=== PATIENT | male | born 1960 | race Two or more races ===

== ENCOUNTER 2018-12-11 14:59 | Emergency (ER) | payer SELFPAY ==
[~2018-12-11] VITALS: Ht 170.2 cm; Wt 74.8 kg
--- NOTE | 2018-12-11 15:29 | PHYS DOC ---
Past Medical History Attending Signature I have participated in the care of this patient and I have reviewed and agree with all pertinent clinical information above including history, exam, and recommendations. (CLAUDIO PEACE MD) Adult General Chief Complaint Chief Complaint: TESTICULAR PAIN OR INJURY HPI HPI Patient is a 58 year old male patient with no significant medical history who presents to the ED today complaining of testicular swelling for 2 weeks. Patient denies any difficulty urinating. Denies any injury. Denies any fever, denies any concerns for STDs. Denies any unusual penile discharge. (JERARDO BELL APRN) Review of Systems Review of Systems Constitutional: Denies fever or chills [] Eyes: Denies change in visual acuity, redness, or eye pain [] HENT: Denies nasal congestion or sore throat [] Respiratory: Denies cough or shortness of breath [] Cardiovascular: No additional information not addressed in HPI [] GI: Denies abdominal pain, nausea, vomiting, bloody stools or diarrhea [] : Reports testicular swelling. Denies dysuria or hematuria [] Musculoskeletal: Denies back pain or joint pain [] Integument: Denies rash or skin lesions [] Neurologic: Denies headache, focal weakness or sensory changes [] All other systems were reviewed and found to be within normal limits, except as documented in this note. (JERARDO BELL APRN) Current Medications Current Medications Current Medications Medications (Trade) Dose Ordered Sig/Cinthya Start Time Stop Time Status Last Admin Dose Admin Ceftriaxone Sodium (Rocephin) 1 gm 1X ONCE 12/11/18 17:30 12/11/18 17:33 DC 12/11/18 17:48 1 GM Clonidine HCl (Catapres) 0.1 mg 1X ONCE 12/11/18 16:00 12/11/18 16:01 DC 12/11/18 15:42 0.1 MG Diphenhydramine HCl (Benadryl) 25 mg 1X ONCE 12/11/18 15:45 12/11/18 15:49 DC 12/11/18 16:08 25 MG Diphtheria/ Tetanus/Acell Pertussis (Boostrix) 0.5 ml ONCE ONCE 12/11/18 16:00 12/11/18 16:01 DC 12/11/18 15:43 0.5 ML Famotidine (Pepcid Vial) 20 mg 1X ONCE 12/11/18 15:45 12/11/18 15:49 DC 12/11/18 16:07 20 MG Levofloxacin/ Dextrose 100 ml @ 100 mls/hr 1X ONCE 12/11/18 17:30 12/11/18 18:29 DC 12/11/18 17:53 100 MLS/HR Methylprednisolone Sodium Succinate (SOLU-Medrol 125MG VIAL) 125 mg 1X ONCE 12/11/18 15:45 12/11/18 15:49 DC 12/11/18 16:07 125 MG (CLAUDIO PEACE MD) Allergies Allergies Allergies Coded Allergies Type Severity Reaction Last Updated Verified No Known Drug Allergies 12/11/18 No (CLAUDIO PEACE MD) Physical Exam Physical Exam Constitutional: Well developed, well nourished, no acute distress, non-toxic appearance. [] HENT: Normocephalic, atraumatic, bilateral external ears normal, oropharynx m oist, no oral exudates, nose normal. [] Eyes: PERRLA, EOMI, conjunctiva normal, no discharge. [] Neck: Normal range of motion, no tenderness, supple, no stridor. [] Cardiovascular:Heart rate regular rhythm, no murmur [] Lungs & Thorax: Bilateral breath sounds clear to auscultation [] Abdomen: Bowel sounds normal, soft, no tenderness, no masses, no pulsatile masses. [] Male exam Moderate swelling noted around the testicles, there is erythema around the testicular skin. Hard to palpate for masses due to the swelling. No discharge. Exam done with a Home Care Physical Therapist Skin: Warm, dry, no erythema, slight erythema noted around the face. Back: No tenderness, no CVA tenderness. [] Extremities: No tenderness, no cyanosis, no clubbing, ROM intact, no edema. [] Neurologic: Alert and oriented X 3, normal motor function, normal sensory function, no focal deficits noted. [] Psychologic: Affect normal, judgement normal, mood normal. [] (JERARDO BELL APRN) Current Patient Data Vital Signs Vital Signs Date Time Temp Pulse Resp B/P (MAP) Pulse Ox O2 Delivery O2 Flow Rate FiO2 12/11/18 19:05 83 18 164/89 (114) 99 Room Air 12/11/18 15:23 98.5 98.5 (CLAUDIO PEACE MD) Lab Values Laboratory Tests Test 12/11/18 16:00 White Blood Count 9.8 x10^3/uL (4.0-11.0) Red Blood Count 5.27 x10^6/uL (4.30-5.70) Hemoglobin 16.5 g/dL (13.0-17.5) Hematocrit 46.5 % (39.0-53.0) Mean Corpuscular Volume 88 fL (79-100) Mean Corpuscular Hemoglobin 31 pg (25-35) Mean Corpuscular Hemoglobin Concent 36 g/dL (31-37) Red Cell Distribution Width 13.8 % (11.5-14.5) Platelet Count 193 x10^3/uL (140-400) Neutrophils (%) (Auto) 75 % (31-73) H Lymphocytes (%) (Auto) 15 % (24-48) L Monocytes (%) (Auto) 7 % (0-9) Eosinophils (%) (Auto) 3 % (0-3) Basophils (%) (Auto) 1 % (0-3) Neutrophils # (Auto) 7.4 x10^3/uL (1.8-7.7) Lymphocytes # (Auto) 1.4 x10^3/uL (1.0-4.8) Monocytes # (Auto) 0.7 x10^3/uL (0.0-1.1) Eosinophils # (Auto) 0.3 x10^3/uL (0.0-0.7) Basophils # (Auto) 0.1 x10^3/uL (0.0-0.2) Sodium Level 138 mmol/L (136-145) Potassium Level 4.1 mmol/L (3.5-5.1) Chloride Level 102 mmol/L (98-107) Carbon Dioxide Level 28 mmol/L (21-32) Anion Gap 8 (6-14) Blood Urea Nitrogen 11 mg/dL (8-26) Creatinine 1.1 mg/dL (0.7-1.3) Estimated GFR (Cockcroft-Gault) 68.5 BUN/Creatinine Ratio 10 (6-20) Glucose Level 144 mg/dL (70-99) H Calcium Level 9.1 mg/dL (8.5-10.1) Total Bilirubin 0.8 mg/dL (0.2-1.0) Aspartate Amino Transferase (AST) 21 U/L (15-37) Alanine Aminotransferase (ALT) 24 U/L (16-63) Alkaline Phosphatase 116 U/L (46-116) Total Protein 8.4 g/dL (6.4-8.2) H Albumin 4.0 g/dL (3.4-5.0) Albumin/Globulin Ratio 0.9 (1.0-1.7) L Laboratory Tests 12/11/18 16:00 Laboratory Tests 12/11/18 16:00 (CLAUDIO PEACE MD) Lab Values Laboratory Tests Test 12/11/18 16:00 White Blood Count 9.8 x10^3/uL (4.0-11.0) Red Blood Count 5.27 x10^6/uL (4.30-5.70) Hemoglobin 16.5 g/dL (13.0-17.5) Hematocrit 46.5 % (39.0-53.0) Mean Corpuscular Volume 88 fL (79-100) Mean Corpuscular Hemoglobin 31 pg (25-35) Mean Corpuscular Hemoglobin Concent 36 g/dL (31-37) Red Cell Distribution Width 13.8 % (11.5-14.5) Platelet Count 193 x10^3/uL (140-400) Neutrophils (%) (Auto) 75 % (31-73) H Lymphocytes (%) (Auto) 15 % (24-48) L Monocytes (%) (Auto) 7 % (0-9) Eosinophils (%) (Auto) 3 % (0-3) Basophils (%) (Auto) 1 % (0-3) Neutrophils # (Auto) 7.4 x10^3/uL (1.8-7.7) Lymphocytes # (Auto) 1.4 x10^3/uL (1.0-4.8) Monocytes # (Auto) 0.7 x10^3/uL (0.0-1.1) Eosinophils # (Auto) 0.3 x10^3/uL (0.0-0.7) Basophils # (Auto) 0.1 x10^3/uL (0.0-0.2) Sodium Level 138 mmol/L (136-145) Potassium Level 4.1 mmol/L (3.5-5.1) Chloride Level 102 mmol/L (98-107) Carbon Dioxide Level 28 mmol/L (21-32) Anion Gap 8 (6-14) Blood Urea Nitrogen 11 mg/dL (8-26) Creatinine 1.1 mg/dL (0.7-1.3) Estimated GFR (Cockcroft-Gault) 68.5 BUN/Creatinine Ratio 10 (6-20) Glucose Level 144 mg/dL (70-99) H Calcium Level 9.1 mg/dL (8.5-10.1) Total Bilirubin 0.8 mg/dL (0.2-1.0) Aspartate Amino Transferase (AST) 21 U/L (15-37) Alanine Aminotransferase (ALT) 24 U/L (16-63) Alkaline Phosphatase 116 U/L (46-116) Total Protein 8.4 g/dL (6.4-8.2) H Albumin 4.0 g/dL (3.4-5.0) Albumin/Globulin Ratio 0.9 (1.0-1.7) L Laboratory Tests 12/11/18 16:00 Laboratory Tests 12/11/18 16:00 (JERARDO BELL APRN) EKG EKG [] (JERARDO BELL APRN) Radiology/Procedures Radiology/Procedures []PROCEDURE: TESTICULAR/SCROTUM Exam: Ultrasound scrotum Indication: Testicular pain Technique: Real-time grayscale and color Doppler images of the scrotum were obtained by the department coke oven patcher. Comparisons: None FINDINGS: Right testicle measures 4.2 x 3.1 x 2.9 cm. Left testicle measures 3.6 x 3.6 x 3.1 cm. Normal arterial and venous waveforms are identified within the testicles bilaterally. Normal appearance of the epididymis. There is diffuse scrotal skin thickening, edema and hyperemia. Small bilateral hydroceles are noted. IMPRESSION: 1. Normal sonographic appearance of the testicles without evidence of torsion. 2. Diffuse scrotal wall edema and hyperemia. Findings may be on the basis of cellulitis. No hypervascularity in the underlying testicles to suggest orchitis. 3. Small bilateral hydroceles which may be reactive. Electronically signed by: Daniel Lora MD (12/11/2018 4:34 PM) [facility] DICTATED and SIGNED BY: DANIEL LORA MD DATE: 12/11/18 3832 (JERARDO BELL APRN) Course & Med Decision Making Course & Med Decision Making Pertinent Labs and Imaging studies reviewed. (See chart for details) This is a 58-year-old male patient who presents to the ED today with testicular swelling that began 2 weeks ago. Physical exam noted for moderate edema on the scrotum with redness suspicious of cellulitis. Vitals on arrival to the ED temperature 98.5, heart rate 84, respiration 18 on room air, temperature was 204, patient denies any history of hypertension though he states he has not seen a doctor for 5 years. He was given clonidine, blood pressure came down to 146/80. CBC with a normal WBC, CMP with no acute findings, scrotal ultrasound was noted for edema as well as cellulitis to the scrotum skin. Patient was given Rocephin and Levaquin in the ED. Discharged on Levaquin. Pr ovided urologist for follow-up next week. Encouraged to elevate his scrotal region. (JERARDO BELL APRN) Dragon Disclaimer Dragon Disclaimer This electronic medical record was generated, in whole or in part, using a voice recognition dictation system. (JERARDO BELL APRN) Departure Departure Impression: Primary Impression: Cellulitis of scrotum Additional Impressions: Hydrocele, bilateral Elevated blood pressure reading Disposition: 01 HOME, SELF-CARE Condition: STABLE Referrals: NO PCP (PCP) SHYLA REARDON MD follow up in one week Patient Instructions: Cellulitis, [id number], Scrotal Swelling Additional Instructions: You were evaluated in the emergency room and noted to have cellulitis/skin infection to the area scrotal region. We put you on antibiotics, ensure you complete them. Try to elevate your scrotal region, follow-up with the provided urologist in the course of this week or next week. Return to the ED at any point symptoms worsen. Scripts Hydrocodone/Apap 5-325 (NORCO 5-325 TABLET) 1 Each Tablet 1 TAB PO Q6HRS, #10 TAB Prov: JERARDO BELL APRN 12/11/18 Naproxen (NAPROXEN) 500 Mg Tablet 1 TAB PO BID, #20 TAB 0 Refills Prov: JERARDO BELL APRN 12/11/18 Levofloxacin (LEVAQUIN) 500 Mg Tablet 1 TAB PO DAILY, #10 TAB Prov: JERARDO BELL APRN 12/11/18 Problem Qualifiers JERARDO BELL APRN Dec 11, 2018 15:29 CLAUDIO PEACE MD Dec 12, 2018 04:00
[2018-12-11] MEDS ORDERED: methylPREDNISolone SOD SUCC PF 125 MG/2 ML VIAL. IV ONE (15:45)
[2018-12-11] MEDS ORDERED: diphenhydrAMINE 50 MG/ML VIAL IVP ONE (15:45)
[2018-12-11] MEDS ORDERED: FAMOTIDINE 20 MG/2 ML VIAL IVP ONE (15:45)
[2018-12-11] MEDS ORDERED: cloNIDine HCL 0.1 MG TABLET PO ONE (16:00)
[2018-12-11] MEDS ORDERED: DIPHTH,PERTUSS(ACELL),TET TOX 0.5 ML DISP.SYRIN. VAX IM ONE (16:00)
[2018-12-11 16:11] LABS: BASO # 0.1 x10^3/uL (0.0-0.2); BASO % 1 % (0-3); EOS # 0.3 x10^3/uL (0.0-0.7); EOS % 3 % (0-3); HEMATOCRIT 46.5 % (39.0-53.0); HEMOGLOBIN 16.5 g/dL (13.0-17.5); LYMPH # 1.4 x10^3/uL (1.0-4.8); LYMPH % 15 % (24-48); MEAN CORPUSCULAR HEMOGLOBIN 31 pg (25-35); MEAN CORPUSCULAR HGB CONC 36 g/dL (31-37); MEAN CORPUSCULAR VOLUME 88 fL (79-100); MONO # 0.7 x10^3/uL (0.0-1.1); MONO % 7 % (0-9); NEUT # 7.4 x10^3/uL (1.8-7.7); NEUT % 75 % (31-73); PLATELET COUNT 193 x10^3/uL (140-400); RED BLOOD COUNT 5.27 x10^6/uL (4.30-5.70); RED CELL DISTRIBUTION WIDTH 13.8 % (11.5-14.5); WHITE BLOOD COUNT 9.8 x10^3/uL (4.0-11.0)
[2018-12-11 16:21] LABS: CALCIUM 9.1 mg/dL (8.5-10.1); CREATININE 1.1 mg/dL (0.7-1.3); GFR 68.5; POTASSIUM 4.1 mmol/L (3.5-5.1)
[2018-12-11 16:25] LABS: ALBUMIN/GLOBULIN RATIO 0.9 (1.0-1.7); TOTAL BILIRUBIN 0.8 mg/dL (0.2-1.0); TOTAL PROTEIN 8.4 g/dL (6.4-8.2)
--- NOTE | 2018-12-11 16:37 | RAD ---
Exam: Ultrasound scrotum Indication: Testicular pain Technique: Real-time grayscale and color Doppler images of the scrotum were obtained by the department oil furnace installer. Comparisons: None FINDINGS: Right testicle measures 4.2 x 3.1 x 2.9 cm. Left testicle measures 3.6 x 3.6 x 3.1 cm. Normal arterial and venous waveforms are identified within the testicles bilaterally. Normal appearance of the epididymis. There is diffuse scrotal skin thickening, edema and hyperemia. Small bilateral hydroceles are noted. IMPRESSION: 1. Normal sonographic appearance of the testicles without evidence of torsion. 2. Diffuse scrotal wall edema and hyperemia. Findings may be on the basis of cellulitis. No hypervascularity in the underlying testicles to suggest orchitis. 3. Small bilateral hydroceles which may be reactive. Electronically signed by: Daniel Samson MD (12/11/2018 4:34 PM) [facility]
[2018-12-11] MEDS ORDERED: cefTRIAXone IV Push 1 GM VIAL. IVP ONE (17:30)
[2018-12-11] MEDS ORDERED: LEVO500T59 PO (18:52)
[2018-12-11] MEDS ORDERED: HYDR-3164 PO (18:52)
[2018-12-11] MEDS ORDERED: NAPR-514 PO (18:52)
[2018-12-11 19:05] VITALS: BP 164/89
== END 2018-12-11 19:13 | disposition home or self-care (01) ==
LOC: ER 14:59
DX: N49.2 Inflammatory disorders of scrotum (principal); N43.3 Hydrocele, unspecified; R03.0 Elevated blood-pressure reading, without diagnosis of hypertension
CPT/HCPCS: 36415; 76870; 80053; 85025; 90471; 90715; 96365; 96375; 99285; J0696; J1200; J1956; J2930; J3490

== ENCOUNTER 2018-12-22 11:46 | Emergency (ER) | payer SELFPAY ==
[~2018-12-22] VITALS: Ht 170.2 cm; Wt 72.6 kg
[~2018-12-22 11:46] MED LIST: HYDR-3164 PO; LEVO500T59 PO; NAPR-514 PO
[2018-12-22 13:08] VITALS: BP 210/98
[2018-12-22] MEDS ORDERED: HYDROcodone/APAP 5/325MG 1 TAB TABLET PO ONE (13:30)
[2018-12-22] MEDS ORDERED: FLUCONAZOLE 100 MG TABLET. PO ONE (13:30)
--- NOTE | 2018-12-22 13:30 | PHYS DOC ---
Past Medical History Past Medical History: No Pertinent History Past Surgical History: No Surgical History Alcohol Use: None Drug Use: None Adult General Chief Complaint Chief Complaint: TESTICULAR PAIN OR INJURY [facility] HPI 58-year-old male presents to the emergency department with complaints of scrotal pain. Patient was seen here on December 11. At that time he was diagnosed with cellulitis of his scrotum and provided with antibiotic therapy. He states things were improving however finished antibiotics. He states he has more [place] and itching appreciated to his scrotum at this time. He denies any fever, no nausea or vomiting, no dysuria, no penile discharge. All other ROS negative unless documented in HPI Review of Systems Review of Systems See Above Allergies Allergies Allergies Coded Allergies Type Severity Reaction Last Updated Verified No Known Drug Allergies 12/11/18 No Physical Exam Physical Exam See Above Constitutional: Well developed, well nourished, no acute distress, non-toxic appearance. [] Cardiovascular:Heart rate regular rhythm, no murmur [] Lungs & Thorax: Bilateral breath sounds clear to auscultation [] Abdomen: Bowel sounds normal, soft, no tenderness, no masses, no pulsatile masses. [] Skin: Warm, dry, no erythema, no rash. [] : redness appreciated to scrotum, fungal infection appreciated to bilateral groin/scrotum Neurologic: Alert and oriented X 3, no focal deficits noted. [] Psychologic: Affect normal, judgement normal, mood normal. [] EKG EKG [] Radiology/Procedures Radiology/Procedures [] Course & Med Decision Making Course & Med Decision Making Pertinent Labs and Imaging studies reviewed. (See chart for details) []58-year-old male presents to the emergency department with complaints of scrotal pain. Patient was seen here on December 11. At that time he was diagnosed with cellulitis of his scrotum and provided with antibiotic therapy. He states things were improving however finished antibiotics. He states he has more [place] and itching appreciated to his scrotum at this time. He denies any fever, no nausea or vomiting, no dysuria, no penile discharge. Records reviewed from visit on 12/11 Johnathan Disclaimer Dragon Disclaimer This electronic medical record was generated, in whole or in part, using a voice recognition dictation system. Departure Departure Impression: Primary Impression: Cellulitis of scrotum Additional Impression: Fungal infection Disposition: 01 HOME, SELF-CARE Condition: STABLE Referrals: NO PCP (PCP) Patient Instructions: Cellulitis, [id number] Additional Instructions: Recommend follow up with PCP 3 - 5 days Return to the ER with worsening symptoms, intractable pain, fever, altered mental status Tylenol/Motrin as needed for pain Take antibiotics and antifungal as directed Scripts Doxycycline Hyclate (DOXYCYCLINE HYCLATE) 100 Mg Capsule 1 CAP PO BID, #14 CAP Prov: CLAUDIO PEACE MD 12/22/18 Fluconazole (DIFLUCAN) 200 Mg Tablet 1 TAB PO DAILY, #7 TAB Prov: CLAUDIO PEACE MD 12/22/18 Clotrimazole (CLOTRIMAZOLE) 15 Gm Cream..g. 1 CODY TP TID, #45 GM Prov: CLAUDIO PEACE MD 12/22/18 Problem Qualifiers CLAUDIO PEACE MD Dec 22, 2018 13:30
[2018-12-22] MEDS ORDERED: FLUC200T PO (13:35)
[2018-12-22] MEDS ORDERED: CLOT15CR4 TP (13:35)
[2018-12-22] MEDS ORDERED: DOXY100C2 PO (13:35)
== END 2018-12-22 13:46 | disposition home or self-care (01) ==
LOC: ER 11:46
DX: N49.2 Inflammatory disorders of scrotum (principal); B35.6 Tinea cruris
CPT/HCPCS: 99283

== ENCOUNTER 2018-12-27 11:35 | Emergency (ER) | payer SELFPAY ==
[~2018-12-27] VITALS: Ht 170.2 cm; Wt 72.6 kg
[~2018-12-27 11:35] MED LIST changes: +CLOT15CR4 TP; +DOXY100C2 PO; +FLUC200T PO
[2018-12-27 13:46] LABS: BASO # 0.1 x10^3/uL (0.0-0.2); BASO % 1 % (0-3); EOS # 0.7 x10^3/uL (0.0-0.7); EOS % 9 % (0-3); HEMATOCRIT 43.7 % (39.0-53.0); HEMOGLOBIN 15.3 g/dL (13.0-17.5); LYMPH # 1.5 x10^3/uL (1.0-4.8); LYMPH % 18 % (24-48); MEAN CORPUSCULAR HEMOGLOBIN 31 pg (25-35); MEAN CORPUSCULAR HGB CONC 35 g/dL (31-37); MEAN CORPUSCULAR VOLUME 89 fL (79-100); MONO # 0.6 x10^3/uL (0.0-1.1); MONO % 8 % (0-9); NEUT # 5.3 x10^3/uL (1.8-7.7); NEUT % 65 % (31-73); PLATELET COUNT 246 x10^3/uL (140-400); RED BLOOD COUNT 4.93 x10^6/uL (4.30-5.70); RED CELL DISTRIBUTION WIDTH 13.9 % (11.5-14.5); WHITE BLOOD COUNT 8.2 x10^3/uL (4.0-11.0)
[2018-12-27 14:13] LABS: CREATININE 1.2 mg/dL (0.7-1.3); POTASSIUM 4.1 mmol/L (3.5-5.1)
[2018-12-27] MEDS ORDERED: cloNIDine HCL 0.1 MG TABLET PO ONE (14:15)
[2018-12-27] MEDS ORDERED: fentaNYL PF VIAL 100 MCG/2 ML VIAL IVP ONE (14:15)
[2018-12-27 14:19] LABS: ALBUMIN 3.7 g/dL (3.4-5.0); TOTAL BILIRUBIN 0.5 mg/dL (0.2-1.0); TOTAL PROTEIN 7.5 g/dL (6.4-8.2)
[2018-12-27] MEDS ORDERED: HYDROcodone/APAP 5/325MG 1 TAB TABLET PO ONE (14:30)
[2018-12-27] MEDS ORDERED: SULF1TAB24 PO (15:44)
[2018-12-27] MEDS ORDERED: cefTRIAXone IM 1 GM VIAL IM ONE (15:45)
[2018-12-27] MEDS ORDERED: LISI10TA2 PO (15:47)
[2018-12-27 16:30] VITALS: BP 131/69
[2018-12-27] MEDS ORDERED: HYDR-3164 PO (16:43)
--- NOTE | 2018-12-27 18:25 | PHYS DOC ---
Past Medical History Past Medical History: Hypertension, Other Additional Past Medical Histor: CELLULITIS (RONNIE BRIONES APRN) Past Surgical History: No Surgical History (RONNIE BRIONES APRN) Alcohol Use: None Drug Use: None (RONNIE BRIONES APRN) Adult General Chief Complaint Chief Complaint: SKIN RASH/ABSCESS HPI HPI Patient is a 58 year old male who presents with pain and erythema to his left earlobe. The patient has been treated for cellulitis 3 times in the past month. He was recently admitted with cellulitis to his scrotum. The patient is curr ently taking doxycycline, using clobetasol cream and an antifungal cream. He does still have some erythema to his right neck, but states that his scrotal infection has cleared. He states that the erythema began in his earlobe approximately 2 days ago. The patient also has hypertension and has not followed up with primary care to be started on medication. He denies chest pain or shortness of breath. (RONNIE BRIONES APRN) Review of Systems Review of Systems Constitutional: Denies fever or chills [] Respiratory: Denies cough or shortness of breath [] Cardiovascular: No additional information not addressed in HPI [] GI: Denies abdominal pain, nausea, vomiting, bloody stools or diarrhea [] : Denies dysuria or hematuria [] Musculoskeletal: Denies back pain or joint pain [] Integument: See history of present illness Neurologic: Denies headache, focal weakness or sensory changes [] Endocrine: Denies polyuria or polydipsia [] All other systems were reviewed and found to be within normal limits, except as documented in this note. (RONNIE BRIONES APRN) Current Medications Current Medications Current Medications Medications (Trade) Dose Ordered Sig/Cinthya Start Time Stop Time Status Last Admin Dose Admin Acetaminophen/ Hydrocodone Bitart (Lortab 5/325) 2 tab 1X ONCE 12/27/18 14:30 12/27/18 14:31 DC 12/27/18 14:30 1 TAB Ceftriaxone Sodium (Rocephin Im) 1 gm 1X ONCE 12/27/18 15:45 12/27/18 15:46 DC 12/27/18 16:45 1 GM Clonidine HCl (Catapres) 0.1 mg 1X ONCE 12/27/18 14:15 12/27/18 14:16 DC 12/27/18 14:15 0.1 MG Fentanyl Citrate (Fentanyl 2ml Vial) 75 mcg 1X ONCE 12/27/18 14:15 12/27/18 14:16 DC (ALIA ENGLE MD) Allergies Allergies Allergies Coded Allergies Type Severity Reaction Last Updated Verified No Known Drug Allergies 12/11/18 No (ALIA ENGLE MD) Physical Exam Physical Exam Constitutional: Well developed, well nourished, no acute distress, non-toxic appearance. [] HENT: Normocephalic, atraumatic, erythema noted to the left earlobe, the ear canal is normal with no edema. There is no weeping or purulent discharge noted. Eyes: PERRLA, EOMI, conjunctiva normal, no discharge. [] Neck: Normal range of motion, no tenderness, supple, no stridor. [] Cardiovascular:Heart rate regular rhythm, no murmur [] Lungs & Thorax: Bilateral breath sounds clear to auscultation [][] Skin: Erythema noted to the right neck and upper chest, the patient states that it has improved since discharge Extremities: No tenderness, no cyanosis, no clubbing, ROM intact, no edema. [] Neurologic: Alert and oriented X 3, normal motor function, normal sensory function, no focal deficits noted. [] Psychologic: Affect normal, judgement normal, mood normal. [] (RONNIE BRIONES APRN) Current Patient Data Vital Signs Vital Signs Date Time Temp Pulse Resp B/P (MAP) Pulse Ox O2 Delivery O2 Flow Rate FiO2 12/27/18 16:30 79 18 131/69 (89) 97 Room Air 12/27/18 12:07 98.0 98.0 (ALIA ENGLE MD) Lab Values Laboratory Tests Test 12/27/18 13:35 12/27/18 13:50 White Blood Count 8.2 x10^3/uL (4.0-11.0) Red Blood Count 4.93 x10^6/uL (4.30-5.70) Hemoglobin 15.3 g/dL (13.0-17.5) Hematocrit 43.7 % (39.0-53.0) Mean Corpuscular Volume 89 fL (79-100) Mean Corpuscular Hemoglobin 31 pg (25-35) Mean Corpuscular Hemoglobin Concent 35 g/dL (31-37) Red Cell Distribution Width 13.9 % (11.5-14.5) Platelet Count 246 x10^3/uL (140-400) Neutrophils (%) (Auto) 65 % (31-73) Lymphocytes (%) (Auto) 18 % (24-48) L Monocytes (%) (Auto) 8 % (0-9) Eosinophils (%) (Auto) 9 % (0-3) H Basophils (%) (Auto) 1 % (0-3) Neutrophils # (Auto) 5.3 x10^3/uL (1.8-7.7) Lymphocytes # (Auto) 1.5 x10^3/uL (1.0-4.8) Monocytes # (Auto) 0.6 x10^3/uL (0.0-1.1) Eosinophils # (Auto) 0.7 x10^3/uL (0.0-0.7) Basophils # (Auto) 0.1 x10^3/uL (0.0-0.2) Sodium Level 140 mmol/L (136-145) Potassium Level 4.1 mmol/L (3.5-5.1) Chloride Level 106 mmol/L (98-107) Carbon Dioxide Level 28 mmol/L (21-32) Anion Gap 6 (6-14) Blood Urea Nitrogen 16 mg/dL (8-26) Creatinine 1.2 mg/dL (0.7-1.3) Estimated GFR (Cockcroft-Gault) 62.0 BUN/Creatinine Ratio 13 (6-20) Glucose Level 140 mg/dL (70-99) H Lactic Acid Level 1.5 mmol/L (0.4-2.0) Calcium Level 9.0 mg/dL (8.5-10.1) Total Bilirubin 0.5 mg/dL (0.2-1.0) Aspartate Amino Transferase (AST) 22 U/L (15-37) Alanine Aminotransferase (ALT) 34 U/L (16-63) Alkaline Phosphatase 111 U/L (46-116) Total Protein 7.5 g/dL (6.4-8.2) Albumin 3.7 g/dL (3.4-5.0) Albumin/Globulin Ratio 1.0 (1.0-1.7) Laboratory Tests 12/27/18 13:35 Laboratory Tests 12/27/18 13:50 (ALIA ENGLE MD) EKG EKG [] (RONNIE BRIONES APRN) Radiology/Procedures Radiology/Procedures [] (RONNIE BRIONES APRN) Course & Med Decision Making Course & Med Decision Making Pertinent Labs and Imaging studies reviewed. (See chart for details) []The patient's lab work does not show an acute bacterial infection, lactic acid is negative. White count is normal. The patient is being discharged on Bactrim DS which I would like him to continue along with his doxycycline. He is to follow-up with primary care for recheck in 2 days or return to the emergency department if worsening. The patient is also been prescribed lisinopril to get his blood pressure and control. He is to follow-up with primary care for evaluation and management of his hypertension as well. (RONNIE BRIONES APRN) Course & Med Decision Making Staff Physician Addendum: I was working in the ER during the course of this patient's visit. I was available for consultation as needed, but I was not directly involved in the care of this patient. (ALIA ENGLE MD) Dragon Disclaimer Dragon Disclaimer This electronic medical record was generated, in whole or in part, using a voice recognition dictation system. (RONNIE BRIONES APRN) Departure Departure Impression: Primary Impression: Hypertension Additional Impression: Cellulitis of left earlobe Disposition: HOME, SELF-CARE Condition: STABLE Patient Instructions: Cellulitis, Hypertension Additional Instructions: Take the medication as directed. Follow-up with your primary care provider in 2 days for recheck or return to the emergency department if worsening. Scripts Hydrocodone/Apap 5-325 (NORCO 5-325 TABLET) 1 Each Tablet 1 TAB PO PRN Q6HRS PRN for PAIN, #20 TAB 0 Refills Prov: RONNIE BRIONES APRN 12/27/18 Lisinopril (LISINOPRIL) 10 Mg Tablet 1 TAB PO DAILY for hypertension, #30 TAB 5 Refills Prov: RONNIE BRIONES APRN 12/27/18 Sulfamethoxazole/Trimethoprim (BACTRIM DS TABLET) 1 Each Tablet 1 TAB PO BID for cellulitis for 10 Days, #20 TAB 0 Refills Prov: RONNIE BRIONES APRN 12/27/18 Problem Qualifiers RONNIE BRIONES APRN Dec 27, 2018 18:24 ALIA ENGLE MD Dec 28, 2018 09:13
== END 2018-12-27 16:50 | disposition home or self-care (01) ==
LOC: ER 11:35
DX: H60.12 Cellulitis of left external ear (principal); I10 Essential (primary) hypertension
CPT/HCPCS: 36415; 80053; 83605; 85025; 96372; 99284; J0696

== ENCOUNTER 2020-03-31 14:45 | Inpatient (IN) | payer SELFPAY ==
[~2020-03-31] VITALS: Ht 172.7 cm; Wt 83.4 kg
[~2020-03-31 14:45] MED LIST changes: +CLOT15CR23 TP; -CLOT15CR4 TP; +LISI10TA16 PO; +SULF1TAB24 PO
[2020-03-31 15:26] LABS: BASO % 0 % (0-3); EOS % 0 % (0-3); HEMATOCRIT 38.5 % (39.0-53.0); HEMOGLOBIN 13.4 g/dL (13.0-17.5); LYMPH # 0.7 x10^3/uL (1.0-4.8); LYMPH % 7 % (24-48); MEAN CORPUSCULAR HEMOGLOBIN 30 pg (25-35); MEAN CORPUSCULAR HGB CONC 35 g/dL (31-37); MEAN CORPUSCULAR VOLUME 86 fL (79-100); MONO # 1.1 x10^3/uL (0.0-1.1); MONO % 12 % (0-9); NEUT # 7.1 x10^3/uL (1.8-7.7); NEUT % 80 % (31-73); PLATELET COUNT 337 x10^3/uL (140-400); RED BLOOD COUNT 4.49 x10^6/uL (4.30-5.70); RED CELL DISTRIBUTION WIDTH 13.5 % (11.5-14.5); WHITE BLOOD COUNT 8.9 x10^3/uL (4.0-11.0)
[2020-03-31 15:36] LABS: PROTHROMBIN TIME PATIENT 15.3 SEC (11.7-14.0)
[2020-03-31 15:46] LABS: CALCIUM 7.6 mg/dL (8.5-10.1); CREATININE 1.2 mg/dL (0.7-1.3); GFR 61.6; POTASSIUM 3.8 mmol/L (3.5-5.1)
[2020-03-31 15:52] LABS: ALBUMIN 2.1 g/dL (3.4-5.0); ALBUMIN/GLOBULIN RATIO 0.4 (1.0-1.7); MAGNESIUM 2.7 mg/dL (1.8-2.4); TOTAL BILIRUBIN 0.9 mg/dL (0.2-1.0); TOTAL PROTEIN 7.1 g/dL (6.4-8.2)
[2020-03-31 16:02] LABS: CREATINE KINASE 56 U/L (39-308)
--- NOTE | 2020-03-31 16:32 | RAD ---
INDICATION: Reason: chest pain,short of air. / Spl. Instructions: / History: COMPARISON: None. FINDINGS: Single view of chest obtained. Hypoexpanded examination. Mild interstitial opacities bilaterally. No gross osseous destructive lesio n IMPRESSION: * Mild interstitial opacities which could be from mild interstitial infiltrate or mild edema. Electronically signed by: Lele Awad MD (03/31/2020 4:29 PM) [id number]
[2020-03-31 17:04] LABS: % ATYL 2 % (0-0); % BANDS 3 % (0-9); % LYMPHS 7 % (24-48); % METAS 2 % (0-0); % MONOS 10 % (0-10); % MYELOS 1 % (0-0); % SEGS 75 % (35-66); NUCLEATED RBC 3; PLT ESTIMATE ADEQUATE (ADEQUATE); POLYCHROMASIA SLIGHT
[2020-03-31 17:16] LABS: BILIRUBIN,URINE NEGATIVE (NEG); CLARITY,URINE CLEAR; COLOR,URINE YELLOW; NITRITE,URINE NEGATIVE (NEG); PROTEIN,URINE 100 mg/dL (NEG-TRACE)
[2020-03-31 17:20] LABS: AMPHETAMINE/METHAMPHETAMINE NEG (NEG); BARBITURATES NEG (NEG); BENZODIAZEPINES NEG (NEG); CANNABINOIDS NEG (NEG); COCAINE NEG (NEG); METHADONE NEG (NEG); OPIATES NEG (NEG); PHENCYCLIDINE NEG (NEG)
[2020-03-31 17:25] LABS: AMORPHOUS SEDIMENT,UR PRESENT /HPF; BACTERIA,URINE 0 /HPF (0-FEW); RBC,URINE OCC /HPF (0-2); WBC,URINE OCC /HPF (0-4)
[2020-03-31] MEDS: STERILE WATER for RESP 1,000 ML BAG. INH PRN (17:45)
[2020-03-31] MEDS ORDERED: AZITHRMYCN 500MG IVPB FOR OMNI 250 ML IV ONE (18:30)
[2020-03-31] MEDS ORDERED: DEXAMETHASONE SOD PHOS 20 MG/5 ML VIAL. IV ONE (18:30)
[2020-03-31] MEDS ORDERED: cefTRIAXone IV Push 1 GM VIAL. IVP ONE (18:30)
--- NOTE | 2020-03-31 19:09 | PDOC1 ---
History and Physical Date of Admission Date of Admission DATE: 03/31/20 TIME: 19:00 Identification/Chief Complaint Chief Complaint Shortness of breath Source Source: Chart review, Patient History of Present Illness History of Present Illness Mr Talbot is a 60 year old male with history of hypertension presented via EMS for shortness of breath. EMS reports patient was picked up at his friend's house after his friend, Brooks, called 911. Was found with O2 saturations 75% on room air. He was put on 5 L of oxygen with improvement to 85%, but continued to desaturate and was placed on facemask O2. Throughout his desaturations he was confused and agitated. With O2 saturations 85% he stood up stating he had to go home and get his money, removed his IVs as well as monitors and started walking to the hallway. He became very short of air. Nursing staff encouraged patient to go back to his room because currently he is very short of breath. He returned to his room. O2 saturations 70% on 12L NCO2, transitioned to vapotherm. He became progressively more alert over the next 30 minutes and was able to give more history and ask for his friend Brooks to be contacted to make tea to bring to the hospital and apologized for his behavior. He reports shortness of breath for roughly 2 days with chills and subjective fevers for 2 days. Denies any chest pain. No recent sick contacts. Loss of [place]. No N/V/D Chest radiograph with interstitial opacities bilaterally WBC 8.9, Hb 13.4, platelets 337, Na 131, K 3.8, BUN 24, Cr 1.2, Glucose 346, Ca 7.6, Lactic acid 2.4, Albumin 2.1, Troponin 0, BNP 254, INR 1.2, TSH 0.967, Procalcitonin 0.42 EKG with sinus tachycardia and leftward axis. No TWI or ST segment changes. No prior EKG available to review. Covid test was ordered. Given Decadron, Rocephin and azithromycin. Admitted to ICU for Vapotherm O2 administration. Past Medical History Cardiovascular: HTN Past Surgical History Past Surgical History: No pertinent history Family History Family History: Hypertension Social History Smoke: No ALCOHOL: none Drugs: None Current Medications Current Medications Current Medications Sterile Water (WATER for RESP) 1,000 ml CONT PRN INH VIA VAPOTHERM DEVICE Last administered on 03/31/20at 17:45; Start 03/31/20 at 17:45 Dexamethasone Sodium Phosphate (Decadron) 10 mg 1X ONCE IV Last administered on 03/31/20at 18:56; Start 03/31/20 at 18:30; Stop 03/31/20 at 18:31; Status DC Azithromycin 250 ml @ 250 mls/hr 1X ONCE IV ; Start 03/31/20 at 18:30; Stop 03/31/20 at 19:29 Ceftriaxone Sodium (Rocephin) 1 gm 1X ONCE IVP Last administered on 03/31/20at 18:59; Start 03/31/20 at 18:30; Stop 03/31/20 at 18:31; Status DC Active Scripts Active Wood 5-325 Tablet (Acetaminophen/Hydrocodone Bitart) 1 Each Tablet 1 Tab PO PRN Q6HRS PRN Lisinopril 10 Mg Tablet 1 Tab PO DAILY Bactrim Ds Tablet (Sulfamethoxazole/Trimethoprim) 1 Each Tablet 1 Tab PO BID 10 Days Doxycycline Hyclate 100 Mg Capsule 1 Cap PO BID Diflucan (Fluconazole) 200 Mg Tablet 1 Tab PO DAILY Clotrimazole 15 Gm Cream..g. 1 [place] TP TID Wood 5-325 Tablet (Acetaminophen/Hydrocodone Bitart) 1 Each Tablet 1 Tab PO Q6HRS Naproxen 500 Mg Tablet 1 Tab PO BID Levaquin (Levofloxacin) 500 Mg Tablet 1 Tab PO DAILY Allergies Allergies: Coded Allergies: No Known Drug Allergies (Unverified , 12/11/18) ROS General: YES: Chills, Fatigue, Malaise, Appetite; No: Night Sweats, Other PSYCHOLOGICAL ROS: YES: Disorientation; No: Anxiety, Behavioral Disorder, Concentration difficultie, Decreased libido, Depression, Hallucinations, Hostility, Irritablity, Memory difficulties, Mood Swings, Obsessive thoughts, Physical abuse, Sexual abuse, Sleep disturbances, Suicidal ideation, Other Eyes: No Blurry vision, No Decreased vision, No Double vision, No Dry eyes, No Excessive tearing, No Eye Pain, No Itchy Eyes, No Loss of vision, No Photophob ia, No Scotomata, No Uses contacts, No Uses glasses, No Other HEENT: No: Heacaches, Visual Changes, Hearing change, Nasal congestion, Nasal discharge, Oral lesions, Sinus pain, Sore Throat, Epistaxis, Sneezing, Snoring, Tinnitus, Vertigo, Vocal changes, Other ALLERGY AND IMMUNOLOGY: No: Hives, Insect Bite Sensitivity, Itchy/Watery Eyes, Nasal Congestion, Post Nasal Drip, Seasonal Allergies, Other Hematological and Lymphatic: No: Bleeding Problems, Blood Clots, Blood Transfusions, Brusing, Night Sweats, Pallor, Swollen Lymph Nodes, Other ENDOCRINE: No: Breast Changes, Galactorrhea, Hair Pattern Changes, Hot Flashes, Malaise/lethargy, Mood Swings, Palpitations, Polydipsia/polyuria, Skin Changes, Temperature Intolerance, Unexpected Weight Changes, Other Breast: No New/Changing Breast Lumps, No Nipple changes, No Nipple discharge, No Other Respiratory: YES: Cough, Shortness of breath, SOB with excertion; No: Hemoptysis, Orthopnea, Pleuritic Pain, Sputum Changes, Stridor, Tachypnea, Wheezing, Other Cardiovascular: No Chest Pain, No Palpitations, No Orthopnea, No Paroxysmal Noc. Dyspnea, No Edema, No Lt Headedness, No Other Gastrointestinal: No Nausea, No Vomiting, No Abdominal Pain, No Diarrhea, No Constipation, No Melena, No Hematochezia, No Other Genitourinary: No Dysuria, No Frequency, No Incontinence, No Hematuria, No Retention, No Discharge, No Urgency, No Pain, No Flank Pain, No Other, No , No , No , No , No , No , No Musculoskeletal: No Gait Disturbance, No Joint Pain, No Joint Stiffness, No Joint Swelling, No Muscle Pain, No Muscular Weakness, No Pain In:, No Swelling In:, No Other Neurological: No Behavorial Changes, No Bowel/Bladder ControlChng, No Confusion, No Dizziness, No Gait Disturbance, No Headaches, No Impaired Coord/balance, No Memory Loss, No Numbness/Tingling, No Seizures, No Speech Problems, No Tremors, No Visual Changes, No Weakness, No Other Skin: No Dry Skin, No Eczema, No Hair Changes, No Lumps, No Mole Changes, No Mottling, No Nail Changes, No Pruritus, No Rash, No Skin Lesion Changes, No Other, No Acne Physical Exam General: Alert, Cooperative, severe distress HEENT: Atraumatic, PERRLA, EOMI, Mucous membr. moist/pink Lungs: Other (Bilateral scattered rhonchi) Heart: S1S2, RRR, no thrills, no rubs, no gallops, no murmurs Abdomen: Normal bowel sounds, Soft, No tenderness, No hepatosplenomegaly, No masses Rectal Exam: not examined Extremities: No clubbing, No cyanosis, No edema, Normal pulses, No tenderness/swelling Skin: No rashes, No breakdown, No significant lesion Neuro: Normal gait, Normal speech, Strength at 5/5 X4 ext, Normal tone, Sensation intact, Cranial nerves 3-12 NL, Reflexes 2+ Psych/Mental Status: Mental status NL, Mood NL Vitals Vitals Vital Signs Date Time Temp Pulse Resp B/P (MAP) Pulse Ox O2 Delivery O2 Flow Rate FiO2 03/31/20 17:45 96 vapotherm 30.0 03/31/20 17:43 104 143/72 (95) 03/31/20 14:57 98.4 24 98.4 Labs Labs Laboratory Tests Test 03/31/20 15:07 03/31/20 17:03 03/31/20 18:28 White Blood Count 8.9 x10^3/uL (4.0-11.0) Red Blood Count 4.49 x10^6/uL (4.30-5.70) Hemoglobin 13.4 g/dL (13.0-17.5) Hematocrit 38.5 % (39.0-53.0) Mean Corpuscular Volume 86 fL (79-100) Mean Corpuscular Hemoglobin 30 pg (25-35) Mean Corpuscular Hemoglobin Concent 35 g/dL (31-37) Red Cell Distribution Width 13.5 % (11.5-14.5) Platelet Count 337 x10^3/uL (140-400) Neutrophils (%) (Auto) 80 % (31-73) Lymphocytes (%) (Auto) 7 % (24-48) Monocytes (%) (Auto) 12 % (0-9) Eosinophils (%) (Auto) 0 % (0-3) Basophils (%) (Auto) 0 % (0-3) Neutrophils # (Auto) 7.1 x10^3/uL (1.8-7.7) Lymphocytes # (Auto) 0.7 x10^3/uL (1.0-4.8) Monocytes # (Auto) 1.1 x10^3/uL (0.0-1.1) Eosinophils # (Auto) 0.0 x10^3/uL (0.0-0.7) Basophils # (Auto) 0.0 x10^3/uL (0.0-0.2) Segmented Neutrophils % 75 % (35-66) Band Neutrophils % 3 % (0-9) Lymphocytes % 7 % (24-48) Atypical Lymphocytes % (Manual) 2 % (0-0) Monocytes % 10 % (0-10) Metamyelocytes % 2 % (0-0) Myelocytes % 1 % (0-0) Nucleated Red Blood Cells 3 Platelet Estimate Adequate (ADEQUATE) Giant Platelets Occ Polychromasia Slight Prothrombin Time 15.3 SEC (11.7-14.0) Prothromb Time International Ratio 1.2 (0.8-1.1) Activated Partial Thromboplast Time 32 SEC (24-38) Sodium Level 131 mmol/L (136-145) Potassium Level 3.8 mmol/L (3.5-5.1) Chloride Level 91 mmol/L (98-107) Carbon Dioxide Level 28 mmol/L (21-32) Anion Gap 12 (6-14) Blood Urea Nitrogen 24 mg/dL (8-26) Creatinine 1.2 mg/dL (0.7-1.3) Estimated GFR (Cockcroft-Gault) 61.6 BUN/Creatinine Ratio 20 (6-20) Glucose Level 346 mg/dL (70-99) Lactic Acid Level 2.4 mmol/L (0.4-2.0) 1.5 mmol/L (0.4-2.0) Calcium Level 7.6 mg/dL (8.5-10.1) Magnesium Level 2.7 mg/dL (1.8-2.4) Total Bilirubin 0.9 mg/dL (0.2-1.0) Aspartate Amino Transf (AST/SGOT) 34 U/L (15-37) Alanine Aminotransferase (ALT/SGPT) 33 U/L (16-63) Alkaline Phosphatase 108 U/L (46-116) Creatine Kinase 56 U/L (39-308) Creatine Kinase MB (Mass) < 0.5 ng/mL (0.0-3.6) Creatine Kinase MB Relative Index 0.9 % (0-4) Troponin I Quantitative < 0.017 ng/mL (0.000-0.055) < 0.017 ng/mL (0.000-0.055) ZP-Ide-C-Type Natriuretic Peptide 294 pg/mL (0-124) Total Protein 7.1 g/dL (6.4-8.2) Albumin 2.1 g/dL (3.4-5.0) Albumin/Globulin Ratio 0.4 (1.0-1.7) Lipase 110 U/L (73-393) Procalcitonin 0.42 ng/mL (0.00-0.10) Thyroid Stimulating Hormone (TSH) 0.967 uIU/mL (0.358-3.74) Urine Collection Type Unknown Urine Color Yellow Urine Clarity Clear Urine pH 5.0 (<5.0-8.0) Urine Specific [place] >=1.030 (1.000-1.030) Urine Protein 100 mg/dL (NEG-TRACE) Urine Glucose (UA) >=1000 mg/dL (NEG) Urine Ketones (Stick) 40 mg/dL (NEG) Urine Blood Negative (NEG) Urine Nitrite Negative (NEG) Urine Bilirubin Negative (NEG) Urine Urobilinogen Dipstick 1.0 mg/dL (0.2 mg/dL) Urine Leukocyte Esterase Negative (NEG) Urine RBC Occ /HPF (0-2) Urine WBC Occ /HPF (0-4) Urine Squamous Epithelial Cells Few /LPF Urine Amorphous Sediment Present /HPF Urine Bacteria 0 /HPF (0-FEW) Urine Mucus Slight /LPF Urine Opiates Screen Neg (NEG) Urine Methadone Screen Neg (NEG) Urine Barbiturates Neg (NEG) Urine Phencyclidine Screen Neg (NEG) Urine Amphetamine/Methamphetamine Neg (NEG) Urine Benzodiazepines Screen Neg (NEG) Urine Cocaine Screen Neg (NEG) Urine Cannabinoids Screen Neg (NEG) Urine Ethyl Alcohol Neg (NEG) Laboratory Tests Test 03/31/20 15:07 03/31/20 17:03 03/31/20 18:28 White Blood Count 8.9 x10^3/uL (4.0-11.0) Red Blood Count 4.49 x10^6/uL (4.30-5.70) Hemoglobin 13.4 g/dL (13.0-17.5) Hematocrit 38.5 % (39.0-53.0) Mean Corpuscular Volume 86 fL (79-100) Mean Corpuscular Hemoglobin 30 pg (25-35) Mean Corpuscular Hemoglobin Concent 35 g/dL (31-37) Red Cell Distribution Width 13.5 % (11.5-14.5) Platelet Count 337 x10^3/uL (140-400) Neutrophils (%) (Auto) 80 % (31-73) Lymphocytes (%) (Auto) 7 % (24-48) Monocytes (%) (Auto) 12 % (0-9) Eosinophils (%) (Auto) 0 % (0-3) Basophils (%) (Auto) 0 % (0-3) Neutrophils # (Auto) 7.1 x10^3/uL (1.8-7.7) Lymphocytes # (Auto) 0.7 x10^3/uL (1.0-4.8) Monocytes # (Auto) 1.1 x10^3/uL (0.0-1.1) Eosinophils # (Auto) 0.0 x10^3/uL (0.0-0.7) Basophils # (Auto) 0.0 x10^3/uL (0.0-0.2) Segmented Neutrophils % 75 % (35-66) Band Neutrophils % 3 % (0-9) Lymphocytes % 7 % (24-48) Atypical Lymphocytes % (Manual) 2 % (0-0) Monocytes % 10 % (0-10) Metamyelocytes % 2 % (0-0) Myelocytes % 1 % (0-0) Nucleated Red Blood Cells 3 Platelet Estimate Adequate (ADEQUATE) Giant Platelets Occ Polychromasia Slight Prothrombin Time 15.3 SEC (11.7-14.0) Prothromb Time International Ratio 1.2 (0.8-1.1) Activated Partial Thromboplast Time 32 SEC (24-38) Sodium Level 131 mmol/L (136-145) Potassium Level 3.8 mmol/L (3.5-5.1) Chloride Level 91 mmol/L (98-107) Carbon Dioxide Level 28 mmol/L (21-32) Anion Gap 12 (6-14) Blood Urea Nitrogen 24 mg/dL (8-26) Creatinine 1.2 mg/dL (0.7-1.3) Estimated GFR (Cockcroft-Gault) 61.6 BUN/Creatinine Ratio 20 (6-20) Glucose Level 346 mg/dL (70-99) Lactic Acid Level 2.4 mmol/L (0.4-2.0) 1.5 mmol/L (0.4-2.0) Calcium Level 7.6 mg/dL (8.5-10.1) Magnesium Level 2.7 mg/dL (1.8-2.4) Total Bilirubin 0.9 mg/dL (0.2-1.0) Aspartate Amino Transf (AST/SGOT) 34 U/L (15-37) Alanine Aminotransferase (ALT/SGPT) 33 U/L (16-63) Alkaline Phosphatase 108 U/L (46-116) Creatine Kinase 56 U/L (39-308) Creatine Kinase MB (Mass) < 0.5 ng/mL (0.0-3.6) Creatine Kinase MB Relative Index 0.9 % (0-4) Troponin I Quantitative < 0.017 ng/mL (0.000-0.055) < 0.017 ng/mL (0.000-0.055) VS-Byn-A-Type Natriuretic Peptide 294 pg/mL (0-124) Total Protein 7.1 g/dL (6.4-8.2) Albumin 2.1 g/dL (3.4-5.0) Albumin/Globulin Ratio 0.4 (1.0-1.7) Lipase 110 U/L (73-393) Procalcitonin 0.42 ng/mL (0.00-0.10) Thyroid Stimulating Hormone (TSH) 0.967 uIU/mL (0.358-3.74) Urine Collection Type Unknown Urine Color Yellow Urine Clarity Clear Urine pH 5.0 (<5.0-8.0) Urine Specific [place] >=1.030 (1.000-1.030) Urine Protein 100 mg/dL (NEG-TRACE) Urine Glucose (UA) >=1000 mg/dL (NEG) Urine Ketones (Stick) 40 mg/dL (NEG) Urine Blood Negative (NEG) Urine Nitrite Negative (NEG) Urine Bilirubin Negative (NEG) Urine Urobilinogen Dipstick 1.0 mg/dL (0.2 mg/dL) Urine Leukocyte Esterase Negative (NEG) Urine RBC Occ /HPF (0-2) Urine WBC Occ /HPF (0-4) Urine Squamous Epithelial Cells Few /LPF Urine Amorphous Sediment Present /HPF Urine Bacteria 0 /HPF (0-FEW) Urine Mucus Slight /LPF Urine Opiates Screen Neg (NEG) Urine Methadone Screen Neg (NEG) Urine Barbiturates Neg (NEG) Urine Phencyclidine Screen Neg (NEG) Urine Amphetamine/Methamphetamine Neg (NEG) Urine Benzodiazepines Screen Neg (NEG) Urine Cocaine Screen Neg (NEG) Urine Cannabinoids Screen Neg (NEG) Urine Ethyl Alcohol Neg (NEG) Images Images Chest radiograph: Hypoexpanded examination. Mild interstitial opacities bilaterally. No gross osseous destructive lesion IMPRESSION: * Mild interstitial opacities which could be from mild interstitial infiltrate or mild edema. VTE Prophylaxis Ordered VTE Prophylaxis Devices: No VTE Pharmacological Prophylaxi: Yes Assessment/Plan Assessment/Plan A/P: Acute respiratory failure with hypoxia - O2 saturations 70% on 12L NCO2, transitioned to vapotherm. Steroids. Pulm consultation. F/u COVID 19 results, treat for community acquired pneumonia Sepsis - with increased HR and RR, pneumonia on CXR, given empiric antibiotics and IVF resuscitation, lactic acid improved after fluid bolus. Will cont treatment Acute encephalopathy - likely metabolic related to hypoxia, improving after O2 administration. Will monitor. Avoid sedating meds. Pneumonia, unspecified organism - given profound hypoxia concern for COVID and developing toward ARDS vs likely atypical gram negative pneumonia Hyperglycemia - no prior diabetes diagnosis to patient knowledge. will f/u A1c and treat with basal bolus plus insulin regimen Hyponatremia - likely hypovolemic given poor PO intake recently BILL - likely vasomotor nephropathy from above, no prior renal disease noted HTN - previously on lisinopril, will continue and add prn hydralazine Lactic acidosis - improved after IVF, likely related to sepsis and hypoxia Severe protein calorie malnutrition - will initiate procalamine. [employer] Machine Operator to see FEN - ADA diet, plus procalamine PPX - lovenox FULL CODE Dispo - inpatient, ICU for hypoxic respiratory failure requiring vapotherm high flow O2 CC time 39 minutes Justifications for Admission Other Justification FRANCISCO MONTALVO MD Mar 31, 2020 19:09
[2020-03-31] MEDS ORDERED: DEXTROSE 50% 25 GM / 50ML DISP.SYRIN. IV PRN ×2 (19:15→20:30)
[2020-03-31] MEDS ORDERED: ACETAMINOPHEN 325 MG TABLET. PO PRN ×3 (19:15→23:00)
[2020-03-31] MEDS ORDERED: ONDANSETRON PF 4 MG/2 ML VIAL. IV PRN ×2 (19:15→20:30)
[2020-03-31] MEDS ORDERED: guaiFENesin DM 200MG/20MG 10 ML SYRUP PO PRN (19:15)
--- NOTE | 2020-03-31 20:16 | PHYS DOC ---
Past Medical History Past Medical History: Hypertension, Other Additional Past Medical Histor: CELLULITIS Past Surgical History: No Surgical History Smoking Status: Former Smoker Alcohol Use: None Drug Use: None General Adult EDM: Chief Complaint: SHORTNESS OF BREATH HPI: HPI: Patient is a 60 year old male with history of hypertension, very poor historian on arrival to the ED. Patient was brought in by EMS for shortness of breath. EMS reports patient was picked up at his friend's house with O2 sats around 75% on room air. He was put on 5 L of oxygen. He arrives in the ED with O2 sats around 85%. He reports shortness of breath for roughly 2 days with chills and s ubjective fevers for 2 days. Denies any chest pain. He keeps talking about wanting his money. He states he needs to leave the ED to go collect his money but will not give us details about who has his money. He states he believes he fell at his friend's bathroom and may have hit his head. He will not give us any further information. Denies any neck pain. Review of Systems: Review of Systems: Constitutional: Reports subjective fevers and chills Eyes: Denies change in visual acuity. [] HENT: Denies nasal congestion or sore throat. [] Respiratory: Reports shortness of breath, denies coughing Cardiovascular: Denies chest pain or edema. [] GI: Denies abdominal pain, nausea, vomiting, bloody stools or diarrhea. [] : Denies dysuria. [] Musculoskeletal: Denies back pain or joint pain. [] Integument: Denies rash. [] Neurologic: Reports falling and hitting his head, denies focal weakness or sensory changes. [] Psychiatric: Denies depression or anxiety. [] Heart Score: Risk Factors: Risk Factors: DM, Current or recent (<one month) smoker, HTN, HLP, family history of CAD, obesity. Risk Scores: Score 0 - 3: 2.5% MACE over next 6 weeks - Discharge Home Score 4 - 6: 20.3% MACE over next 6 weeks - Admit for Clinical Observation Score 7 - 10: 72.7% MACE over next 6 weeks - Early Invasive Strategies Current Medications: Current Medications Medications (Trade) Dose Ordered Sig/Cinthya Start Time Stop Time Status Last Admin Dose Admin Acetaminophen (Tylenol) 650 mg PRN Q4HRS PRN 03/31/20 19:15 Azithromycin 250 ml @ 250 mls/hr 1X ONCE 03/31/20 18:30 03/31/20 19:29 DC 03/31/20 19:03 250 MLS/HR Ceftriaxone Sodium (Rocephin) 1 gm DAILY 04/01/20 09:00 Dexamethasone Sodium Phosphate (Decadron) 4 mg DAILY 04/01/20 09:00 Dextrose (Dextrose 50%-Water Syringe) 12.5 gm PRN Q15MIN PRN 03/31/20 19:15 Doxycycline Hyclate 100 mg/ Dextrose 100 ml @ 50 mls/hr BID 03/31/20 21:00 Enoxaparin Sodium (Lovenox 40mg Syringe) 40 mg Q24H 03/31/20 21:00 Guaifenesin (Robitussin Dm) 10 ml PRN Q6HRS PRN 03/31/20 19:15 Insulin Glargine (Lantus Syringe) 10 unit QHS 03/31/20 21:00 Insulin Human Lispro (HumaLOG) 0-9 UNITS TIDWMEALS 04/01/20 08:00 Ondansetron HCl (Zofran) 4 mg PRN Q4HRS PRN 03/31/20 19:15 Sterile Water (WATER for RESP) 1,000 ml CONT PRN 03/31/20 17:45 03/31/20 17:45 1,000 ML Thiamine Mononitrate (Vitamin B-1) 100 mg DAILY 04/01/20 09:00 Zinc Sulfate (Orazinc) 220 mg DAILY 04/01/20 09:00 Zolpidem Tartrate (Ambien) 5 mg PRN QHS PRN 03/31/20 19:15 Allergies: Allergies: Allergies Coded Allergies Type Severity Reaction Last Updated Verified No Known Drug Allergies 12/11/18 No Physical Exam: PE: Constitutional: Well developed, well nourished, no acute distress, non-toxic appearance. [] HENT: Normocephalic, atraumatic, bilateral external ears normal, oropharynx moist, no oral exudates, nose normal. [] Eyes: PERRLA, EOMI, conjunctiva normal, no discharge. [] Neck: Normal range of motion, no tenderness, supple, no stridor. [] Cardiovascular:Heart rate regular rhythm, no murmur [] Lungs & Thorax: Short of air, diminished breath sounds. Abdomen: Bowel sounds normal, soft, no tenderness, no masses, no pulsatile masses. [] Skin: Warm, dry, no erythema, no rash. [] Back: No tenderness, no CVA tenderness. [] Extremities: No tenderness, no cyanosis, no clubbing, ROM intact, no edema. [] Neurologic: Alert and oriented X 3, normal motor function, normal sensory function, no focal deficits noted. Cranial nerves II through XII intact Psychologic: Affect normal, judgement normal, mood normal. [] Current Patient Data: Labs: Laboratory Tests Test 03/31/20 15:07 03/31/20 17:03 03/31/20 18:28 White Blood Count 8.9 x10^3/uL (4.0-11.0) Red Blood Count 4.49 x10^6/uL (4.30-5.70) Hemoglobin 13.4 g/dL (13.0-17.5) Hematocrit 38.5 % (39.0-53.0) L Mean Corpuscular Volume 86 fL (79-100) Mean Corpuscular Hemoglobin 30 pg (25-35) Mean Corpuscular Hemoglobin Concent 35 g/dL (31-37) Red Cell Distribution Width 13.5 % (11.5-14.5) Platelet Count 337 x10^3/uL (140-400) Neutrophils (%) (Auto) 80 % (31-73) H Lymphocytes (%) (Auto) 7 % (24-48) L Monocytes (%) (Auto) 12 % (0-9) H Eosinophils (%) (Auto) 0 % (0-3) Basophils (%) (Auto) 0 % (0-3) Neutrophils # (Auto) 7.1 x10^3/uL (1.8-7.7) Lymphocytes # (Auto) 0.7 x10^3/uL (1.0-4.8) L Monocytes # (Auto) 1.1 x10^3/uL (0.0-1.1) Eosinophils # (Auto) 0.0 x10^3/uL (0.0-0.7) Basophils # (Auto) 0.0 x10^3/uL (0.0-0.2) Segmented Neutrophils % 75 % (35-66) H Band Neutrophils % 3 % (0-9) Lymphocytes % 7 % (24-48) L Atypical Lymphocytes % (Manual) 2 % (0-0) H Monocytes % 10 % (0-10) Metamyelocytes % 2 % (0-0) H Myelocytes % 1 % (0-0) H Nucleated Red Blood Cells 3 Platelet Estimate Adequate (ADEQUATE) Giant Platelets Occ Polychromasia Slight Prothrombin Time 15.3 SEC (11.7-14.0) H Prothrombin Time INR 1.2 (0.8-1.1) H Activated Partial Thromboplast Time 32 SEC (24-38) Sodium Level 131 mmol/L (136-145) L Potassium Level 3.8 mmol/L (3.5-5.1) Chloride Level 91 mmol/L (98-107) L Carbon Dioxide Level 28 mmol/L (21-32) Anion Gap 12 (6-14) Blood Urea Nitrogen 24 mg/dL (8-26) Creatinine 1.2 mg/dL (0.7-1.3) Estimated GFR (Cockcroft-Gault) 61.6 BUN/Creatinine Ratio 20 (6-20) Glucose Level 346 mg/dL (70-99) H Lactic Acid Level 2.4 mmol/L (0.4-2.0) H 1.5 mmol/L (0.4-2.0) Calcium Level 7.6 mg/dL (8.5-10.1) L Magnesium Level 2.7 mg/dL (1.8-2.4) H Total Bilirubin 0.9 mg/dL (0.2-1.0) Aspartate Amino Transferase (AST) 34 U/L (15-37) Alanine Aminotransferase (ALT) 33 U/L (16-63) Alkaline Phosphatase 108 U/L (46-116) Creatine Kinase 56 U/L (39-308) Creatine Kinase MB (Mass) < 0.5 ng/mL (0.0-3.6) Creatine Kinase MB Relative Index 0.9 % (0-4) Troponin I Quantitative < 0.017 ng/mL (0.000-0.055) < 0.017 ng/mL (0.000-0.055) EY-Dua-J-Type Natriuretic Peptide 294 pg/mL (0-124) H Total Protein 7.1 g/dL (6.4-8.2) Albumin 2.1 g/dL (3.4-5.0) L Albumin/Globulin Ratio 0.4 (1.0-1.7) L Lipase 110 U/L (73-393) Procalcitonin 0.42 ng/mL (0.00-0.10) H Thyroid Stimulating Hormone (TSH) 0.967 uIU/mL (0.358-3.74) Urine Collection Type Unknown Urine Color Yellow Urine Clarity Clear Urine pH 5.0 (<5.0-8.0) Urine Specific [place]iot >=1.030 (1.000-1.030) Urine Protein 100 mg/dL (NEG-TRACE) Urine Glucose (UA) >=1000 mg/dL (NEG) Urine Ketones (Stick) 40 mg/dL (NEG) Urine Blood Negative (NEG) Urine Nitrite Negative (NEG) Urine Bilirubin Negative (NEG) Urine Urobilinogen Dipstick 1.0 mg/dL (0.2 mg/dL) Urine Leukocyte Esterase Negative (NEG) Urine RBC Occ /HPF (0-2) Urine WBC Occ /HPF (0-4) Urine Squamous Epithelial Cells Few /LPF Urine Amorphous Sediment Present /HPF Urine Bacteria 0 /HPF (0-FEW) Urine Mucus Slight /LPF Urine Opiates Screen Neg (NEG) Urine Methadone Screen Neg (NEG) Urine Barbiturates Neg (NEG) Urine Phencyclidine Screen Neg (NEG) Urine Amphetamine/Methamphetamine Neg (NEG) Urine Benzodiazepines Screen Neg (NEG) Urine Cocaine Screen Neg (NEG) Urine Cannabinoids Screen Neg (NEG) Urine Ethyl Alcohol Neg (NEG) Laboratory Tests 03/31/20 15:07 Laboratory Tests 03/31/20 15:07 Vital Signs: Vital Signs Date Time Temp Pulse Resp B/P (MAP) Pulse Ox O2 Delivery O2 Flow Rate FiO2 03/31/20 17:45 96 vapotherm 30.0 03/31/20 17:43 104 143/72 (95) 03/31/20 14:57 98.4 24 98.4 EKG: EKG: [] Radiology/Procedures: Radiology/Procedures: []PROCEDURE: PORTABLE CHEST 1V INDICATION: Reason: chest pain,short of air. / Spl. Instructions: / History: COMPARISON: None. FINDINGS: Single view of chest obtained. Hypoexpanded examination. Mild interstitial opacities bilaterally. No gross osseous destructive lesion IMPRESSION: * Mild interstitial opacities which could be from mild interstitial infiltrate or mild edema. Electronically signed by: Jagdeep Awad MD (03/31/2020 4:29 PM) [id number] DICTATED and SIGNED BY: JAGDEEP AWAD MD DATE: 03/31/20 [id number] 0 Course & Med Decision Making: Course & Med Decision Making Pertinent Labs and Imaging studies reviewed. (See chart for details) This is a 60-year-old male patient presenting to the ED today complaining of shortness of breath, subjective fevers and chills for 2 days. Also reporting he could have fallen at his friend's house and hit his head. Patient was short of air on arrival to the ED. Was put on oxygen 5 L with no improvement O2 sats was still around 85%. Vapotherm was initiated currently at 30 L and 100% O2 sats.Labs were ordered, CT and chest x-ray were ordered. Covid test was ordered. At some point during his stay in the ED patient stood up stating he has to go home and get his money. He would tell us who has his money. He removed his IVs as well as monitors and started walking to the hallway. He became very short of air. Nursing staff encouraged patient to go back to his room because current ly he is very short of breath. He accepted to return to his room. CBC no acute findings, CMP with glucose of 346, no previous history of diabetes per his own statement. Anion gap is normal. Chest x-ray noted for mild interstitial opacities which could be from mild interstitial infiltrate or mild edema. Patient was given Decadron, Rocephin and azithromycin. Will be given insulin. Spoke with Dr. Lucas who accepted patient for admission Johnathan Disclaimer: Johnathan Disclaimer: This electronic medical record was generated, in whole or in part, using a voice recognition dictation system. Departure Departure Impression: Primary Impression: Person under investigation for COVID-19 Additional Impressions: Acute respiratory failure Qualified Codes: J96.01 - Acute respiratory failure with hypoxia Lower lobe pneumonia Qualified Codes: J18.9 - Pneumonia, unspecified organism Hyperglycemia Disposition: ADMITTED INPT THIS HOSP Condition: STABLE Referrals: NO PCP (PCP) JERARDO BELL APRN Mar 31, 2020 20:16
[2020-03-31] MEDS ORDERED: MORPHINE SULFATE 4 MG/ML VIAL. IV PRN (20:30)
[2020-03-31] MEDS ORDERED: INSULIN GLARGINE SYRINGE. SQ SCH (21:00)
--- NOTE | 2020-03-31 22:20 | NUR ---
Pt admitted to room 112 from ED. Pt on Vapotherm upon arrival to unit. Monitors applied. Called Dr. Lucas regarding BS of 423 and new orders received. Provided patient education on medication and oriented to room. Pt A&Ox4 but will need continued reinforcement not to get out of bed unassisted; bed alarm turned on. Pt upset that he will not be allowed to leave his room to go to the cafeteria to "get a pop" nor will be able to shower. Attempted to reinforce to patient the criticalness of his illness and oxygen needs; will continue to need reinforcement. Pt states that he does not have any close family and would want his friend Damon Ansari [phone] to make all medical decisions in the event that he would not be able to make them for himself. Will consult for financial concerns.
[2020-03-31 22:30] VITALS: BP 102/76
[2020-03-31] MEDS ORDERED: METOPROLOL IV PUSH 5 MG/5 ML VIAL. IVP PRN (22:45)
[2020-03-31 23:00] VITALS: BP 142/73
[2020-03-31] MEDS ORDERED: INSULIN LISPRO 300 UNITS/3 ML VIAL. SQ ONE (23:15)
[2020-03-31] MEDS: DOXYCYCLINE HYCLATE 100 MG in IV DEXTROSE 5% 100ML 100 ML IV SCH (23:19)
[2020-03-31] MEDS: INSULIN GLARGINE SYRINGE. SQ SCH (23:19)
[2020-03-31] MEDS: ENOXAPARIN 40 MG/0.4 ML SYRINGE. SQ SCH (23:22)
[2020-03-31] MEDS: AMINO AC 3%/ELECTROLYTE/GLYCER 1,000 ML IV SCH (23:27)
[2020-04-01] VITALS (22 sets, daily range): BP systolic 102–152; BP diastolic 53–88
[2020-04-01] MEDS: STERILE WATER for RESP 1,000 ML BAG. INH PRN (04:02)
[2020-04-01 05:27] LABS: BASO % 0 % (0-3); EOS % 0 % (0-3); HEMATOCRIT 35.1 % (39.0-53.0); HEMOGLOBIN 12.1 g/dL (13.0-17.5); LYMPH # 0.5 x10^3/uL (1.0-4.8); LYMPH % 7 % (24-48); MEAN CORPUSCULAR HEMOGLOBIN 30 pg (25-35); MEAN CORPUSCULAR HGB CONC 35 g/dL (31-37); MEAN CORPUSCULAR VOLUME 86 fL (79-100); MONO # 0.6 x10^3/uL (0.0-1.1); MONO % 8 % (0-9); NEUT # 6.3 x10^3/uL (1.8-7.7); NEUT % 84 % (31-73); PLATELET COUNT 297 x10^3/uL (140-400); RED BLOOD COUNT 4.09 x10^6/uL (4.30-5.70); RED CELL DISTRIBUTION WIDTH 13.5 % (11.5-14.5); WHITE BLOOD COUNT 7.4 x10^3/uL (4.0-11.0)
[2020-04-01 05:37] LABS: CALCIUM 7.3 mg/dL (8.5-10.1); POTASSIUM 3.8 mmol/L (3.5-5.1)
[2020-04-01 05:44] LABS: ALBUMIN 1.7 g/dL (3.4-5.0); ALBUMIN/GLOBULIN RATIO 0.4 (1.0-1.7); TOTAL BILIRUBIN 0.6 mg/dL (0.2-1.0); TOTAL PROTEIN 6.5 g/dL (6.4-8.2)
[2020-04-01] MEDS ORDERED: INSULIN LISPRO 300 UNITS/3 ML VIAL. SQ SCH ×2 (08:00)
[2020-04-01] MEDS: ZINC SULFATE 220 MG CAPSULE. PO SCH (08:20)
[2020-04-01] MEDS: INSULIN LISPRO 300 UNITS/3 ML VIAL. SQ SCH ×7 (08:20→20:30)
[2020-04-01] MEDS: DEXAMETHASONE SOD PHOS 4 MG/ML VIAL IVP SCH (08:21)
[2020-04-01] MEDS: DOXYCYCLINE HYCLATE 100 MG in IV DEXTROSE 5% 100ML 100 ML IV SCH ×2 (08:21→20:26)
[2020-04-01] MEDS: THIAMINE 100 MG TABLET. PO SCH (08:21)
[2020-04-01] MEDS: LISINOPRIL 10 MG TABLET PO SCH (08:21)
[2020-04-01] MEDS: cefTRIAXone IV Push 1 GM VIAL. IVP SCH (08:21)
--- NOTE | 2020-04-01 11:13 | CONS ---
DATE OF CONSULTATION: PULMONARY CONSULTATION ATTENDING PHYSICIAN: Billy Lucas MD REASON FOR CONSULTATION: Respiratory failure. HISTORY OF PRESENT ILLNESS: The patient is a 60-year-old male who has past medical history of hypertension. He was brought into the hospital with increasing shortness of breath. He was noted to be hypoxic with saturation of 75% on room air, he was placed on 5 liters of oxygen, but continued to desaturate and then eventually placed on 100% FiO2. The patient's chest x-ray was reviewed and it shows faint interstitial infiltrates suggestive of viral infection. I have been asked to see him for further evaluation. He is currently on Vapotherm at 100% FiO2 and 30 liters. PAST MEDICAL HISTORY: Hypertension. PAST SURGICAL HISTORY: None. FAMILY HISTORY: Hypertension. SOCIAL HISTORY: Nonsmoker. ALLERGIES: None. MEDICATIONS: Reviewed as listed in the [facility]AD including antibiotics, dexamethasone, and Lovenox for DVT prophylaxis. PHYSICAL EXAMINATION: He is in no obvious respiratory distress, currently on Vapotherm at 30 liters and 100% FiO2. Visual exam done due to COVID suspicion. No paradoxical breathing. He is comfortable. No skin rash. LABORATORY DATA: Reviewed. White cell count 7.4, hemoglobin 12.1 and platelets are 297. BUN 22, creatinine 1.0. Procalcitonin 0.42. IMPRESSION: 1. Acute hypoxic respiratory failure secondary to highly suspected COVID-19 viral pneumonia. 2. Abnormal chest x-ray suggestive of viral pneumonia. 3. No significant tobacco use. RECOMMENDATIONS: 1. Continue present Vapotherm. 2. Continue dexamethasone. 3. Continue IV antibiotics. 4. Home medications. 5. DVT prophylaxis with Lovenox. 6. The patient is already hypoxic on 100% FiO2. Would not benefit from remdesivir. 7. Discussed with RN and RT. cct 30 min SHAKA RIOS MD DR: EDILSON/destinee JOB#: [id number] / [id number] CHRISTYD
[2020-04-01] MEDS: AMINO AC 3%/ELECTROLYTE/GLYCER 1,000 ML IV SCH ×2 (11:30→23:49)
--- NOTE | 2020-04-01 13:50 | NUR ---
SS following for discharge planning. SS reviewed pt chart and discussed with pt RN. Pt is from home with friend and is currently on Vapotherm at 100%. COVID19 test pending. Pt on IV Rocephin, IV Doxycycline, and PPN. Pt requesting Healthcare DPOA be completed listing Damon Ansari, , as his DPOA. SS met with pt in room and completed DPOA paperwork with pt. Copy and original placed on chart. Pt is self pay. Med Assist to follow. SS will continue to follow for discharge planning.
--- NOTE | 2020-04-01 14:10 | PDOC ---
PROGRESS NOTES Date of Service: DATE: 04/01/20 TIME: 14:09 Chief Complaint Chief Complaint Acute respiratory failure with hypoxia - , transitioned to vapotherm. Steroids. - Isolate PUI forCOVID Sepsis - with increased HR and RR, pneumonia on CXR, given empiric antibiotics and IVF Acute encephalopathy - metabolic w/ hypoxia, improving Pneumonia, unspecified organism - given profound hypoxia concern for COVID and developing toward ARDS vs likely atypical gram negative pneumonia Hyperglycemia - no prior diabetes diagnosis to patient knowledge. will f/u A1c and treat with basal bolus plus insulin regimen Hyponatremia - likely hypovolemic given poor PO intake recently BILL - likely vasomotor nephropathy from above, no prior renal disease noted HTN - previously on lisinopril, will continue and add prn hydralazine Lactic acidosis - acute Severe protein calorie malnutrition - History of Present Illness History of Present Illness he feels improved, not able to eat much some confusion, but orientable, cont current on 30 liters vapotherm Vitals Vitals Vital Signs Date Time Temp Pulse Resp B/P (MAP) Pulse Ox O2 Delivery O2 Flow Rate FiO2 04/01/20 12:00 Nasal Cannula 30.0 04/01/20 11:50 91 04/01/20 11:00 82 24 122/59 (80) 04/01/20 08:00 98.2 98.2 Physical Exam General: Alert, Cooperative, severe distress Abdomen: Normal bowel sounds, Soft, No tenderness, No hepatosplenomegaly, No ma sses Extremities: No clubbing, No cyanosis, No edema, Normal pulses, No tenderness/swelling Skin: No rashes, No breakdown, No significant lesion Labs LABS Laboratory Tests Test 03/31/20 15:07 03/31/20 17:03 03/31/20 18:28 04/01/20 05:00 White Blood Count 8.9 x10^3/uL (4.0-11.0) 7.4 x10^3/uL (4.0-11.0) Red Blood Count 4.49 x10^6/uL (4.30-5.70) 4.09 x10^6/uL (4.30-5.70) Hemoglobin 13.4 g/dL (13.0-17.5) 12.1 g/dL (13.0-17.5) Hematocrit 38.5 % (39.0-53.0) 35.1 % (39.0-53.0) Mean Corpuscular Volume 86 fL (79-100) 86 fL (79-100) Mean Corpuscular Hemoglobin 30 pg (25-35) 30 pg (25-35) Mean Corpuscular Hemoglobin Concent 35 g/dL (31-37) 35 g/dL (31-37) Red Cell Distribution Width 13.5 % (11.5-14.5) 13.5 % (11.5-14.5) Platelet Count 337 x10^3/uL (140-400) 297 x10^3/uL (140-400) Neutrophils (%) (Auto) 80 % (31-73) 84 % (31-73) Lymphocytes (%) (Auto) 7 % (24-48) 7 % (24-48) Monocytes (%) (Auto) 12 % (0-9) 8 % (0-9) Eosinophils (%) (Auto) 0 % (0-3) 0 % (0-3) Basophils (%) (Auto) 0 % (0-3) 0 % (0-3) Neutrophils # (Auto) 7.1 x10^3/uL (1.8-7.7) 6.3 x10^3/uL (1.8-7.7) Lymphocytes # (Auto) 0.7 x10^3/uL (1.0-4.8) 0.5 x10^3/uL (1.0-4.8) Monocytes # (Auto) 1.1 x10^3/uL (0.0-1.1) 0.6 x10^3/uL (0.0-1.1) Eosinophils # (Auto) 0.0 x10^3/uL (0.0-0.7) 0.0 x10^3/uL (0.0-0.7) Basophils # (Auto) 0.0 x10^3/uL (0.0-0.2) 0.0 x10^3/uL (0.0-0.2) Segmented Neutrophils % 75 % (35-66) Band Neutrophils % 3 % (0-9) Lymphocytes % 7 % (24-48) Atypical Lymphocytes % (Manual) 2 % (0-0) Monocytes % 10 % (0-10) Metamyelocytes % 2 % (0-0) Myelocytes % 1 % (0-0) Nucleated Red Blood Cells 3 Platelet Estimate Adequate (ADEQUATE) Giant Platelets Occ Polychromasia Slight Prothrombin Time 15.3 SEC (11.7-14.0) Prothromb Time International Ratio 1.2 (0.8-1.1) Activated Partial Thromboplast Time 32 SEC (24-38) Sodium Level 131 mmol/L (136-145) 131 mmol/L (136-145) Potassium Level 3.8 mmol/L (3.5-5.1) 3.8 mmol/L (3.5-5.1) Chloride Level 91 mmol/L (98-107) 94 mmol/L (98-107) Carbon Dioxide Level 28 mmol/L (21-32) 28 mmol/L (21-32) Anion Gap 12 (6-14) 9 (6-14) Blood Urea Nitrogen 24 mg/dL (8-26) 22 mg/dL (8-26) Creatinine 1.2 mg/dL (0.7-1.3) 1.0 mg/dL (0.7-1.3) Estimated GFR (Cockcroft-Gault) 61.6 76.0 BUN/Creatinine Ratio 20 (6-20) 22 (6-20) Glucose Level 346 mg/dL (70-99) 317 mg/dL (70-99) Lactic Acid Level 2.4 mmol/L (0.4-2.0) 1.5 mmol/L (0.4-2.0) Calcium Level 7.6 mg/dL (8.5-10.1) 7.3 mg/dL (8.5-10.1) Magnesium Level 2.7 mg/dL (1.8-2.4) Total Bilirubin 0.9 mg/dL (0.2-1.0) 0.6 mg/dL (0.2-1.0) Aspartate Amino Transf (AST/SGOT) 34 U/L (15-37) 21 U/L (15-37) Alanine Aminotransferase (ALT/SGPT) 33 U/L (16-63) 28 U/L (16-63) Alkaline Phosphatase 108 U/L (46-116) 90 U/L (46-116) Creatine Kinase 56 U/L (39-308) Creatine Kinase MB (Mass) < 0.5 ng/mL (0.0-3.6) Creatine Kinase MB Relative Index 0.9 % (0-4) Troponin I Quantitative < 0.017 ng/mL (0.000-0.055) < 0.017 ng/mL (0.000-0.055) BH-Vnb-P-Type Natriuretic Peptide 294 pg/mL (0-124) Total Protein 7.1 g/dL (6.4-8.2) 6.5 g/dL (6.4-8.2) Albumin 2.1 g/dL (3.4-5.0) 1.7 g/dL (3.4-5.0) Albumin/Globulin Ratio 0.4 (1.0-1.7) 0.4 (1.0-1.7) Lipase 110 U/L (73-393) Procalcitonin 0.42 ng/mL (0.00-0.10) Thyroid Stimulating Hormone (TSH) 0.967 uIU/mL (0.358-3.74) Urine Collection Type Unknown Urine Color Yellow Urine Clarity Clear Urine pH 5.0 (<5.0-8.0) Urine Specific [place] >=1.030 (1.000-1.030) Urine Protein 100 mg/dL (NEG-TRACE) Urine Glucose (UA) >=1000 mg/dL (NEG) Urine Ketones (Stick) 40 mg/dL (NEG) Urine Blood Negative (NEG) Urine Nitrite Negative (NEG) Urine Bilirubin Negative (NEG) Urine Urobilinogen Dipstick 1.0 mg/dL (0.2 mg/dL) Urine Leukocyte Esterase Negative (NEG) Urine RBC Occ /HPF (0-2) Urine WBC Occ /HPF (0-4) Urine Squamous Epithelial Cells Few /LPF Urine Amorphous Sediment Present /HPF Urine Bacteria 0 /HPF (0-FEW) Urine Mucus Slight /LPF Urine Opiates Screen Neg (NEG) Urine Methadone Screen Neg (NEG) Urine Barbiturates Neg (NEG) Urine Phencyclidine Screen Neg (NEG) Urine Amphetamine/Methamphetamine Neg (NEG) Urine Benzodiazepines Screen Neg (NEG) Urine Cocaine Screen Neg (NEG) Urine Cannabinoids Screen Neg (NEG) Urine Ethyl Alcohol Neg (NEG) Assessment and Plan Assessmemt and Plan Problems Medical Problems: (1) Hyperglycemia Status: Acute Comment Review of Relevant I have reviewed the following items hiren (where applicable) has been applied. Labs Laboratory Tests Test 03/31/20 15:07 03/31/20 17:03 03/31/20 18:28 04/01/20 05:00 White Blood Count 8.9 x10^3/uL (4.0-11.0) 7.4 x10^3/uL (4.0-11.0) Red Blood Count 4.49 x10^6/uL (4.30-5.70) 4.09 x10^6/uL (4.30-5.70) Hemoglobin 13.4 g/dL (13.0-17.5) 12.1 g/dL (13.0-17.5) Hematocrit 38.5 % (39.0-53.0) 35.1 % (39.0-53.0) Mean Corpuscular Volume 86 fL (79-100) 86 fL (79-100) Mean Corpuscular Hemoglobin 30 pg (25-35) 30 pg (25-35) Mean Corpuscular Hemoglobin Concent 35 g/dL (31-37) 35 g/dL (31-37) Red Cell Distribution Width 13.5 % (11.5-14.5) 13.5 % (11.5-14.5) Platelet Count 337 x10^3/uL (140-400) 297 x10^3/uL (140-400) Neutrophils (%) (Auto) 80 % (31-73) 84 % (31-73) Lymphocytes (%) (Auto) 7 % (24-48) 7 % (24-48) Monocytes (%) (Auto) 12 % (0-9) 8 % (0-9) Eosinophils (%) (Auto) 0 % (0-3) 0 % (0-3) Basophils (%) (Auto) 0 % (0-3) 0 % (0-3) Neutrophils # (Auto) 7.1 x10^3/uL (1.8-7.7) 6.3 x10^3/uL (1.8-7.7) Lymphocytes # (Auto) 0.7 x10^3/uL (1.0-4.8) 0.5 x10^3/uL (1.0-4.8) Monocytes # (Auto) 1.1 x10^3/uL (0.0-1.1) 0.6 x10^3/uL (0.0-1.1) Eosinophils # (Auto) 0.0 x10^3/uL (0.0-0.7) 0.0 x10^3/uL (0.0-0.7) Basophils # (Auto) 0.0 x10^3/uL (0.0-0.2) 0.0 x10^3/uL (0.0-0.2) Segmented Neutrophils % 75 % (35-66) Band Neutrophils % 3 % (0-9) Lymphocytes % 7 % (24-48) Atypical Lymphocytes % (Manual) 2 % (0-0) Monocytes % 10 % (0-10) Metamyelocytes % 2 % (0-0) Myelocytes % 1 % (0-0) Nucleated Red Blood Cells 3 Platelet Estimate Adequate (ADEQUATE) Giant Platelets Occ Polychromasia Slight Prothrombin Time 15.3 SEC (11.7-14.0) Prothromb Time International Ratio 1.2 (0.8-1.1) Activated Partial Thromboplast Time 32 SEC (24-38) Sodium Level 131 mmol/L (136-145) 131 mmol/L (136-145) Potassium Level 3.8 mmol/L (3.5-5.1) 3.8 mmol/L (3.5-5.1) Chloride Level 91 mmol/L (98-107) 94 mmol/L (98-107) Carbon Dioxide Level 28 mmol/L (21-32) 28 mmol/L (21-32) Anion Gap 12 (6-14) 9 (6-14) Blood Urea Nitrogen 24 mg/dL (8-26) 22 mg/dL (8-26) Creatinine 1.2 mg/dL (0.7-1.3) 1.0 mg/dL (0.7-1.3) Estimated GFR (Cockcroft-Gault) 61.6 76.0 BUN/Creatinine Ratio 20 (6-20) 22 (6-20) Glucose Level 346 mg/dL (70-99) 317 mg/dL (70-99) Lactic Acid Level 2.4 mmol/L (0.4-2.0) 1.5 mmol/L (0.4-2.0) Calcium Level 7.6 mg/dL (8.5-10.1) 7.3 mg/dL (8.5-10.1) Magnesium Level 2.7 mg/dL (1.8-2.4) Total Bilirubin 0.9 mg/dL (0.2-1.0) 0.6 mg/dL (0.2-1.0) Aspartate Amino Transf (AST/SGOT) 34 U/L (15-37) 21 U/L (15-37) Alanine Aminotransferase (ALT/SGPT) 33 U/L (16-63) 28 U/L (16-63) Alkaline Phosphatase 108 U/L (46-116) 90 U/L (46-116) Creatine Kinase 56 U/L (39-308) Creatine Kinase MB (Mass) < 0.5 ng/mL (0.0-3.6) Creatine Kinase MB Relative Index 0.9 % (0-4) Troponin I Quantitative < 0.017 ng/mL (0.000-0.055) < 0.017 ng/mL (0.000-0.055) IC-Cma-R-Type Natriuretic Peptide 294 pg/mL (0-124) Total Protein 7.1 g/dL (6.4-8.2) 6.5 g/dL (6.4-8.2) Albumin 2.1 g/dL (3.4-5.0) 1.7 g/dL (3.4-5.0) Albumin/Globulin Ratio 0.4 (1.0-1.7) 0.4 (1.0-1.7) Lipase 110 U/L (73-393) Procalcitonin 0.42 ng/mL (0.00-0.10) Thyroid Stimulating Hormone (TSH) 0.967 uIU/mL (0.358-3.74) Urine Collection Type Unknown Urine Color Yellow Urine Clarity Clear Urine pH 5.0 (<5.0-8.0) Urine Specific [place] >=1.030 (1.000-1.030) Urine Protein 100 mg/dL (NEG-TRACE) Urine Glucose (UA) >=1000 mg/dL (NEG) Urine Ketones (Stick) 40 mg/dL (NEG) Urine Blood Negative (NEG) Urine Nitrite Negative (NEG) Urine Bilirubin Negative (NEG) Urine Urobilinogen Dipstick 1.0 mg/dL (0.2 mg/dL) Urine Leukocyte Esterase Negative (NEG) Urine RBC Occ /HPF (0-2) Urine WBC Occ /HPF (0-4) Urine Squamous Epithelial Cells Few /LPF Urine Amorphous Sediment Present /HPF Urine Bacteria 0 /HPF (0-FEW) Urine Mucus Slight /LPF Urine Opiates Screen Neg (NEG) Urine Methadone Screen Neg (NEG) Urine Barbiturates Neg (NEG) Urine Phencyclidine Screen Neg (NEG) Urine Amphetamine/Methamphetamine Neg (NEG) Urine Benzodiazepines Screen Neg (NEG) Urine Cocaine Screen Neg (NEG) Urine Cannabinoids Screen Neg (NEG) Urine Ethyl Alcohol Neg (NEG) Laboratory Tests Test 03/31/20 15:07 03/31/20 17:03 03/31/20 18:28 04/01/20 05:00 White Blood Count 8.9 x10^3/uL (4.0-11.0) 7.4 x10^3/uL (4.0-11.0) Red Blood Count 4.49 x10^6/uL (4.30-5.70) 4.09 x10^6/uL (4.30-5.70) Hemoglobin 13.4 g/dL (13.0-17.5) 12.1 g/dL (13.0-17.5) Hematocrit 38.5 % (39.0-53.0) 35.1 % (39.0-53.0) Mean Corpuscular Volume 86 fL (79-100) 86 fL (79-100) Mean Corpuscular Hemoglobin 30 pg (25-35) 30 pg (25-35) Mean Corpuscular Hemoglobin Concent 35 g/dL (31-37) 35 g/dL (31-37) Red Cell Distribution Width 13.5 % (11.5-14.5) 13.5 % (11.5-14.5) Platelet Count 337 x10^3/uL (140-400) 297 x10^3/uL (140-400) Neutrophils (%) (Auto) 80 % (31-73) 84 % (31-73) Lymphocytes (%) (Auto) 7 % (24-48) 7 % (24-48) Monocytes (%) (Auto) 12 % (0-9) 8 % (0-9) Eosinophils (%) (Auto) 0 % (0-3) 0 % (0-3) Basophils (%) (Auto) 0 % (0-3) 0 % (0-3) Neutrophils # (Auto) 7.1 x10^3/uL (1.8-7.7) 6.3 x10^3/uL (1.8-7.7) Lymphocytes # (Auto) 0.7 x10^3/uL (1.0-4.8) 0.5 x10^3/uL (1.0-4.8) Monocytes # (Auto) 1.1 x10^3/uL (0.0-1.1) 0.6 x10^3/uL (0.0-1.1) Eosinophils # (Auto) 0.0 x10^3/uL (0.0-0.7) 0.0 x10^3/uL (0.0-0.7) Basophils # (Auto) 0.0 x10^3/uL (0.0-0.2) 0.0 x10^3/uL (0.0-0.2) Segmented Neutrophils % 75 % (35-66) Band Neutrophils % 3 % (0-9) Lymphocytes % 7 % (24-48) Atypical Lymphocytes % (Manual) 2 % (0-0) Monocytes % 10 % (0-10) Metamyelocytes % 2 % (0-0) Myelocytes % 1 % (0-0) Nucleated Red Blood Cells 3 Platelet Estimate Adequate (ADEQUATE) Giant Platelets Occ Polychromasia Slight Prothrombin Time 15.3 SEC (11.7-14.0) Prothromb Time International Ratio 1.2 (0.8-1.1) Activated Partial Thromboplast Time 32 SEC (24-38) Sodium Level 131 mmol/L (136-145) 131 mmol/L (136-145) Potassium Level 3.8 mmol/L (3.5-5.1) 3.8 mmol/L (3.5-5.1) Chloride Level 91 mmol/L (98-107) 94 mmol/L (98-107) Carbon Dioxide Level 28 mmol/L (21-32) 28 mmol/L (21-32) Anion Gap 12 (6-14) 9 (6-14) Blood Urea Nitrogen 24 mg/dL (8-26) 22 mg/dL (8-26) Creatinine 1.2 mg/dL (0.7-1.3) 1.0 mg/dL (0.7-1.3) Estimated GFR (Cockcroft-Gault) 61.6 76.0 BUN/Creatinine Ratio 20 (6-20) 22 (6-20) Glucose Level 346 mg/dL (70-99) 317 mg/dL (70-99) Lactic Acid Level 2.4 mmol/L (0.4-2.0) 1.5 mmol/L (0.4-2.0) Calcium Level 7.6 mg/dL (8.5-10.1) 7.3 mg/dL (8.5-10.1) Magnesium Level 2.7 mg/dL (1.8-2.4) Total Bilirubin 0.9 mg/dL (0.2-1.0) 0.6 mg/dL (0.2-1.0) Aspartate Amino Transf (AST/SGOT) 34 U/L (15-37) 21 U/L (15-37) Alanine Aminotransferase (ALT/SGPT) 33 U/L (16-63) 28 U/L (16-63) Alkaline Phosphatase 108 U/L (46-116) 90 U/L (46-116) Creatine Kinase 56 U/L (39-308) Creatine Kinase MB (Mass) < 0.5 ng/mL (0.0-3.6) Creatine Kinase MB Relative Index 0.9 % (0-4) Troponin I Quantitative < 0.017 ng/mL (0.000-0.055) < 0.017 ng/mL (0.000-0.055) ZE-Lje-G-Type Natriuretic Peptide 294 pg/mL (0-124) Total Protein 7.1 g/dL (6.4-8.2) 6.5 g/dL (6.4-8.2) Albumin 2.1 g/dL (3.4-5.0) 1.7 g/dL (3.4-5.0) Albumin/Globulin Ratio 0.4 (1.0-1.7) 0.4 (1.0-1.7) Lipase 110 U/L (73-393) Procalcitonin 0.42 ng/mL (0.00-0.10) Thyroid Stimulating Hormone (TSH) 0.967 uIU/mL (0.358-3.74) Urine Collection Type Unknown Urine Color Yellow Urine Clarity Clear Urine pH 5.0 (<5.0-8.0) Urine Specific [place] >=1.030 (1.000-1.030) Urine Protein 100 mg/dL (NEG-TRACE) Urine Glucose (UA) >=1000 mg/dL (NEG) Urine Ketones (Stick) 40 mg/dL (NEG) Urine Blood Negative (NEG) Urine Nitrite Negative (NEG) Urine Bilirubin Negative (NEG) Urine Urobilinogen Dipstick 1.0 mg/dL (0.2 mg/dL) Urine Leukocyte Esterase Negative (NEG) Urine RBC Occ /HPF (0-2) Urine WBC Occ /HPF (0-4) Urine Squamous Epithelial Cells Few /LPF Urine Amorphous Sediment Present /HPF Urine Bacteria 0 /HPF (0-FEW) Urine Mucus Slight /LPF Urine Opiates Screen Neg (NEG) Urine Methadone Screen Neg (NEG) Urine Barbiturates Neg (NEG) Urine Phencyclidine Screen Neg (NEG) Urine Amphetamine/Methamphetamine Neg (NEG) Urine Benzodiazepines Screen Neg (NEG) Urine Cocaine Screen Neg (NEG) Urine Cannabinoids Screen Neg (NEG) Urine Ethyl Alcohol Neg (NEG) Medications Current Medications Sterile Water (WATER for RESP) 1,000 ml CONT PRN INH VIA VAPOTHERM DEVICE Last administered on 04/01/20at 04:02; Start 03/31/20 at 17:45 Dexamethasone Sodium Phosphate (Decadron) 10 mg 1X ONCE IV Last administered on 03/31/20at 18:56; Start 03/31/20 at 18:30; Stop 03/31/20 at 18:31; Status DC Azithromycin 250 ml @ 250 mls/hr 1X ONCE IV Last administered on 03/31/20at 19:03; Start 03/31/20 at 18:30; Stop 03/31/20 at 19:29; Status DC Ceftriaxone Sodium (Rocephin) 1 gm 1X ONCE IVP Last administered on 03/31/20at 18:59; Start 03/31/20 at 18:30; Stop 03/31/20 at 18:31; Status DC Insulin Glargine (Lantus Syringe) 10 unit QHS SQ ; Start 03/31/20 at 21:00; Stop 03/31/20 at 23:03; Status DC Insulin Human Lispro (HumaLOG) 0-9 UNITS TIDWMEALS SQ ; Start 04/01/20 at 08:00; Stop 03/31/20 at 23:03; Status DC Dextrose (Dextrose 50%-Water Syringe) 12.5 gm PRN Q15MIN PRN IV SEE COMMENTS; Start 03/31/20 at 19:15 Ondansetron HCl (Zofran) 4 mg PRN Q4HRS PRN IV NAUSEA/VOMITING; Start 03/31/20 at 19:15 Zolpidem Tartrate (Ambien) 5 mg PRN QHS PRN PO INSOMNIA; Start 03/31/20 at 19:15 Acetaminophen (Tylenol) 650 mg PRN Q4HRS PRN PO TEMP OVER 100.4F OR MILD PAIN; Start 03/31/20 at 19:15 Enoxaparin Sodium (Lovenox 40mg Syringe) 40 mg Q24H SQ Last administered on 03/31/20at 23:22; Start 03/31/20 at 21:00 Dexamethasone Sodium Phosphate (Decadron) 4 mg DAILY IVP Last administered on 04/01/20at 08:21; Start 04/01/20 at 09:00 Zinc Sulfate (Orazinc) 220 mg DAILY PO Last administered on 04/01/20at 08:20; Start 04/01/20 at 09:00 Thiamine Mononitrate (Vitamin B-1) 100 mg DAILY PO Last administered on 04/01/20at 08:21; Start 04/01/20 at 09:00 Guaifenesin (Robitussin Dm) 10 ml PRN Q6HRS PRN PO COUGH; Start 03/31/20 at 19:15 Doxycycline Hyclate 100 mg/ Dextrose 100 ml @ 50 mls/hr BID IV Last administe red on 04/01/20at 08:21; Start 03/31/20 at 21:00 Ceftriaxone Sodium (Rocephin) 1 gm DAILY IVP Last administered on 04/01/20at 08: 21; Start 04/01/20 at 09:00 Ondansetron HCl (Zofran) 4 mg PRN Q8HRS PRN IV NAUSEA/VOMITING; Start 03/31/20 at 20:30; Stop 04/01/20 at 20:29 Morphine Sulfate (Morphine Sulfate) 4 mg PRN Q2HR PRN IV PAIN; Start 03/31/20 at 20:30; Stop 04/01/20 at 20:29 Acetaminophen (Tylenol) 650 mg PRN Q4HRS PRN PO FEVER > 100.3'F; Start 03/31/20 at 20:30; Stop 03/31/20 at 23:03; Status DC Insulin Human Lispro (HumaLOG) 0-7 UNITS TIDWMEALS SQ ; Start 04/01/20 at 08:00; Stop 03/31/20 at 23:03; Status DC Dextrose (Dextrose 50%-Water Syringe) 12.5 gm PRN Q15MIN PRN IV SEE COMMENTS; Start 03/31/20 at 20:30 Lisinopril (Prinivil) 10 mg DAILY PO Last administered on 04/01/20at 08:21; Start 04/01/20 at 09:00 Metoprolol Tartrate (Lopressor Vial) 5 mg PRN Q6HRS PRN IVP HYPERTENSION; Start 03/31/20 at 22:45 Amino Acids/ Glycerin/ Electrolytes 1,000 ml @ 80 mls/hr [id number] IV Last administered on 03/31/20at 23:27; Start 03/31/20 at 23:00 Insulin Glargine (Lantus Syringe) 20 unit QHS SQ Last administered on 03/31/20at 23:19; Start 03/31/20 at 23:15 Insulin Human Lispro (HumaLOG) 0-9 UNITS TIDWMEALHC SQ Last administered on 04/01/20at 12:00; Start 04/01/20 at 08:00 Acetaminophen (Tylenol) 650 mg PRN Q6HRS PRN PO FEVER > 100.3'F; Start 03/31/20 at 23:00 Insulin Human Lispro (HumaLOG) 5 units TIDWMEALS SQ Last administered on 04/01/20at 12:00; Start 04/01/20 at 08:00 Insulin Human Lispro (HumaLOG) 16 units 1X ONCE SQ Last administered on 03/31/20at 23:23; Start 03/31/20 at 23:15; Stop 03/31/20 at 23:16; Status DC Active Scripts Active [place] 5-325 Tablet (Acetaminophen/Hydrocodone Bitart) 1 Each Tablet 1 Tab PO PRN Q6HRS PRN Lisinopril 10 Mg Tablet 1 Tab PO DAILY Bactrim Ds Tablet (Sulfamethoxazole/Trimethoprim) 1 Each Tablet 1 Tab PO BID 10 Days Doxycycline Hyclate 100 Mg Capsule 1 Cap PO BID Diflucan (Fluconazole) 200 Mg Tablet 1 Tab PO DAILY Clotrimazole 15 Gm Cream..g. 1 [place] TP TID [place] 5-325 Tablet (Acetaminophen/Hydrocodone Bitart) 1 Each Tablet 1 Tab PO Q6HRS Naproxen 500 Mg Tablet 1 Tab PO BID Levaquin (Levofloxacin) 500 Mg Tablet 1 Tab PO DAILY Vitals/I & O Vital Sign - Last 24 Hours 03/31/20 03/31/20 03/31/20 03/31/20 14:57 15:11 15:25 15:40 Temp 98.4 98.4 Pulse 115 112 108 108 Resp 24 B/P (MAP) 134/61 (85) 135/61 (85) 142/67 (92) 144/67 (92) Pulse Ox 85 96 93 86 O2 Delivery Nasal Cannula NonRebreather Mask NonRebreather Mask NonRebreather Mask O2 Flow Rate 5.0 12.0 12.0 12.0 03/31/20 03/31/20 03/31/20 03/31/20 16:13 16:28 16:43 16:58 Pulse 104 102 102 102 B/P (MAP) 149/75 (99) 151/79 (103) 163/74 (103) 160/72 (101) Pulse Ox 92 95 93 94 O2 Delivery NonRebreather Mask NonRebreather Mask NonRebreather Mask NonRebreather Mask O2 Flow Rate 12.0 12.0 12.0 12.0 03/31/20 03/31/20 03/31/20 03/31/20 17:20 17:28 17:43 17:45 Pulse 108 104 104 B/P (MAP) 156/73 (100) 134/65 (88) 143/72 (95) Pulse Ox 70 89 96 96 O2 Delivery NonRebreather Mask NonRebreather Mask vapotherm O2 Flow Rate 12.0 12.0 30.0 03/31/20 03/31/20 03/31/20 03/31/20 18:43 18:58 19:21 19:43 Pulse 107 104 98 95 B/P (MAP) 187/75 (112) 145/78 (100) 153/70 (97) 148/80 (102) Pulse Ox 94 95 95 95 03/31/20 03/31/20 03/31/20 03/31/20 20:13 20:43 21:28 21:58 Pulse 96 97 96 95 B/P (MAP) 134/83 (100) 144/67 (92) 153/72 (99) 151/72 (98) Pulse Ox 93 97 95 96 03/31/20 03/31/20 03/31/20 03/31/20 22:05 22:13 22:30 23:00 Temp 98.1 98.1 Pulse 97 97 94 Resp B/P (MAP) 158/73 (101) 102/76 (85) 142/73 (96) Pulse Ox 95 95 100 96 O2 Delivery vapotherm Vapotherm Vapotherm O2 Flow Rate 30.0 30.0 30.0 03/31/20 04/01/20 04/01/20 04/01/20 23:01 00:00 00:05 01:00 Pulse 92 90 Resp B/P (MAP) 146/79 (101) 147/73 (97) Pulse Ox 96 94 92 O2 Delivery Nasal Cannula Vapotherm vapotherm Vapotherm O2 Flow Rate 30.0 30.0 30.0 30.0 04/01/20 04/01/20 04/01/20 04/01/20 02:00 03:00 03:34 04:00 Temp 98.6 98.6 Pulse 88 90 87 Resp B/P (MAP) 141/68 (92) 152/80 (104) 144/80 (101) Pulse Ox 92 95 89 O2 Delivery Vapotherm Vapotherm Nasal Cannula Vapotherm O2 Flow Rate 30.0 30.0 30.0 30.0 04/01/20 04/01/20 04/01/20 04/01/20 04:15 05:00 06:00 07:00 Pulse 86 82 82 Resp B/P (MAP) 139/73 (95) 142/71 (94) 115/57 (76) Pulse Ox 96 92 92 92 O2 Delivery vapotherm Vapotherm Vapotherm Vapotherm O2 Flow Rate 30.0 30.0 30.0 30.0 04/01/20 04/01/20 04/01/20 04/01/20 07:50 08:00 08:00 08:21 Temp 98.2 98.2 Pulse 84 78 Resp 24 B/P (MAP) 142/72 (95) 142/72 Pulse Ox 91 90 O2 Delivery vapotherm Nasal Cannula Vapotherm O2 Flow Rate 30.0 30.0 30.0 04/01/20 04/01/20 04/01/20 04/01/20 09:00 10:00 11:00 11:50 Pulse 88 90 82 Resp 26 22 24 B/P (MAP) 132/64 (86) 117/56 (76) 122/59 (80) Pulse Ox 89 86 92 91 O2 Delivery Vapotherm Vapotherm Vapotherm vapotherm O2 Flow Rate 30.0 30.0 30.0 30.0 04/01/20 12:00 O2 Delivery Nasal Cannula O2 Flow Rate 30.0 Intake and Output 03/31/20 03/31/20 04/01/20 15:00 23:00 07:00 Intake Total 531 ml Output Total 575 ml Balance -44 ml Justicifation of Admission Dx: Justifications for Admission: Justification of Admission Dx: Yes (hypoxia) ROSA HENDRICKS MD Apr 01, 2020 14:10
[2020-04-01] MEDS: IV NORMAL SALINE 1000ML BAG 1,000 ML IV SCH (19:00)
[2020-04-01] MEDS: ENOXAPARIN 40 MG/0.4 ML SYRINGE. SQ SCH (20:26)
[2020-04-01] MEDS: INSULIN GLARGINE SYRINGE. SQ SCH (20:30)
[2020-04-01] MEDS: ZOLPIDEM 5 MG TABLET. PO PRN (21:47)
[2020-04-02] VITALS (21 sets, daily range): BP systolic 86–176; BP diastolic 50–79
[2020-04-02] MEDS: STERILE WATER for RESP 1,000 ML BAG. INH PRN ×3 (03:28→20:00)
[2020-04-02 05:34] LABS: BASO % 0 % (0-3); EOS % 0 % (0-3); HEMATOCRIT 39.4 % (39.0-53.0); HEMOGLOBIN 13.2 g/dL (13.0-17.5); LYMPH # 0.5 x10^3/uL (1.0-4.8); LYMPH % 4 % (24-48); MEAN CORPUSCULAR HEMOGLOBIN 29 pg (25-35); MEAN CORPUSCULAR HGB CONC 34 g/dL (31-37); MEAN CORPUSCULAR VOLUME 87 fL (79-100); MONO # 0.9 x10^3/uL (0.0-1.1); MONO % 7 % (0-9); NEUT # 11.7 x10^3/uL (1.8-7.7); NEUT % 89 % (31-73); PLATELET COUNT 348 x10^3/uL (140-400); RED BLOOD COUNT 4.52 x10^6/uL (4.30-5.70); RED CELL DISTRIBUTION WIDTH 13.8 % (11.5-14.5); WHITE BLOOD COUNT 13.1 x10^3/uL (4.0-11.0)
[2020-04-02 05:53] LABS: ALBUMIN 1.8 g/dL (3.4-5.0); ALBUMIN/GLOBULIN RATIO 0.4 (1.0-1.7); CALCIUM 7.7 mg/dL (8.5-10.1); CREATININE 1.1 mg/dL (0.7-1.3); GFR 68.1; POTASSIUM 3.8 mmol/L (3.5-5.1); TOTAL BILIRUBIN 0.6 mg/dL (0.2-1.0); TOTAL PROTEIN 6.5 g/dL (6.4-8.2)
--- NOTE | 2020-04-02 06:04 | PDOC ---
PULMONARY PROGRESS NOTES DATE: 04/02/20 TIME: 06:02 Subjective desated on vapotherm nrb now on bipap 20/10 fio2 100%, sat 95% bipap mask is uncomfortable. Vitals Vital Signs Date Time Temp Pulse Resp B/P (MAP) Pulse Ox O2 Delivery O2 Flow Rate FiO2 04/02/20 05:00 98.3 68 21 124/72 (89) 99 BiPAP/CPAP 98.3 04/02/20 03:20 40.0 Comments on bipap no distress nc at rrr no accessory muscle use no rash Labs Laboratory Tests Test 03/31/20 15:07 03/31/20 17:03 03/31/20 18:28 04/01/20 05:00 White Blood Count 8.9 x10^3/uL (4.0-11.0) 7.4 x10^3/uL (4.0-11.0) Red Blood Count 4.49 x10^6/uL (4.30-5.70) 4.09 x10^6/uL (4.30-5.70) Hemoglobin 13.4 g/dL (13.0-17.5) 12.1 g/dL (13.0-17.5) Hematocrit 38.5 % (39.0-53.0) 35.1 % (39.0-53.0) Mean Corpuscular Volume 86 fL (79-100) 86 fL (79-100) Mean Corpuscular Hemoglobin 30 pg (25-35) 30 pg (25-35) Mean Corpuscular Hemoglobin Concent 35 g/dL (31-37) 35 g/dL (31-37) Red Cell Distribution Width 13.5 % (11.5-14.5) 13.5 % (11.5-14.5) Platelet Count 337 x10^3/uL (140-400) 297 x10^3/uL (140-400) Neutrophils (%) (Auto) 80 % (31-73) 84 % (31-73) Lymphocytes (%) (Auto) 7 % (24-48) 7 % (24-48) Monocytes (%) (Auto) 12 % (0-9) 8 % (0-9) Eosinophils (%) (Auto) 0 % (0-3) 0 % (0-3) Basophils (%) (Auto) 0 % (0-3) 0 % (0-3) Neutrophils # (Auto) 7.1 x10^3/uL (1.8-7.7) 6.3 x10^3/uL (1.8-7.7) Lymphocytes # (Auto) 0.7 x10^3/uL (1.0-4.8) 0.5 x10^3/uL (1.0-4.8) Monocytes # (Auto) 1.1 x10^3/uL (0.0-1.1) 0.6 x10^3/uL (0.0-1.1) Eosinophils # (Auto) 0.0 x10^3/uL (0.0-0.7) 0.0 x10^3/uL (0.0-0.7) Basophils # (Auto) 0.0 x10^3/uL (0.0-0.2) 0.0 x10^3/uL (0.0-0.2) Segmented Neutrophils % 75 % (35-66) Band Neutrophils % 3 % (0-9) Lymphocytes % 7 % (24-48) Atypical Lymphocytes % (Manual) 2 % (0-0) Monocytes % 10 % (0-10) Metamyelocytes % 2 % (0-0) Myelocytes % 1 % (0-0) Nucleated Red Blood Cells 3 Platelet Estimate Adequate (ADEQUATE) Giant Platelets Occ Polychromasia Slight Prothrombin Time 15.3 SEC (11.7-14.0) Prothromb Time International Ratio 1.2 (0.8-1.1) Activated Partial Thromboplast Time 32 SEC (24-38) Sodium Level 131 mmol/L (136-145) 131 mmol/L (136-145) Potassium Level 3.8 mmol/L (3.5-5.1) 3.8 mmol/L (3.5-5.1) Chloride Level 91 mmol/L (98-107) 94 mmol/L (98-107) Carbon Dioxide Level 28 mmol/L (21-32) 28 mmol/L (21-32) Anion Gap 12 (6-14) 9 (6-14) Blood Urea Nitrogen 24 mg/dL (8-26) 22 mg/dL (8-26) Creatinine 1.2 mg/dL (0.7-1.3) 1.0 mg/dL (0.7-1.3) Estimated GFR (Cockcroft-Gault) 61.6 76.0 BUN/Creatinine Ratio 20 (6-20) 22 (6-20) Glucose Level 346 mg/dL (70-99) 317 mg/dL (70-99) Lactic Acid Level 2.4 mmol/L (0.4-2.0) 1.5 mmol/L (0.4-2.0) Calcium Level 7.6 mg/dL (8.5-10.1) 7.3 mg/dL (8.5-10.1) Magnesium Level 2.7 mg/dL (1.8-2.4) Total Bilirubin 0.9 mg/dL (0.2-1.0) 0.6 mg/dL (0.2-1.0) Aspartate Amino Transf (AST/SGOT) 34 U/L (15-37) 21 U/L (15-37) Alanine Aminotransferase (ALT/SGPT) 33 U/L (16-63) 28 U/L (16-63) Alkaline Phosphatase 108 U/L (46-116) 90 U/L (46-116) Creatine Kinase 56 U/L (39-308) Creatine Kinase MB (Mass) < 0.5 ng/mL (0.0-3.6) Creatine Kinase MB Relative Index 0.9 % (0-4) Troponin I Quantitative < 0.017 ng/mL (0.000-0.055) < 0.017 ng/mL (0.000-0.055) YY-Nnq-V-Type Natriuretic Peptide 294 pg/mL (0-124) Total Protein 7.1 g/dL (6.4-8.2) 6.5 g/dL (6.4-8.2) Albumin 2.1 g/dL (3.4-5.0) 1.7 g/dL (3.4-5.0) Albumin/Globulin Ratio 0.4 (1.0-1.7) 0.4 (1.0-1.7) Lipase 110 U/L (73-393) Procalcitonin 0.42 ng/mL (0.00-0.10) Thyroid Stimulating Hormone (TSH) 0.967 uIU/mL (0.358-3.74) Urine Collection Type Unknown Urine Color Yellow Urine Clarity Clear Urine pH 5.0 (<5.0-8.0) Urine Specific [place] >=1.030 (1.000-1.030) Urine Protein 100 mg/dL (NEG-TRACE) Urine Glucose (UA) >=1000 mg/dL (NEG) Urine Ketones (Stick) 40 mg/dL (NEG) Urine Blood Negative (NEG) Urine Nitrite Negative (NEG) Urine Bilirubin Negative (NEG) Urine Urobilinogen Dipstick 1.0 mg/dL (0.2 mg/dL) Urine Leukocyte Esterase Negative (NEG) Urine RBC Occ /HPF (0-2) Urine WBC Occ /HPF (0-4) Urine Squamous Epithelial Cells Few /LPF Urine Amorphous Sediment Present /HPF Urine Bacteria 0 /HPF (0-FEW) Urine Mucus Slight /LPF Urine Opiates Screen Neg (NEG) Urine Methadone Screen Neg (NEG) Urine Barbiturates Neg (NEG) Urine Phencyclidine Screen Neg (NEG) Urine Amphetamine/Methamphetamine Neg (NEG) Urine Benzodiazepines Screen Neg (NEG) Urine Cocaine Screen Neg (NEG) Urine Cannabinoids Screen Neg (NEG) Urine Ethyl Alcohol Neg (NEG) Coronavirus (PCR) Detected (Not Detected) Test 04/01/20 12:50 04/01/20 17:39 04/02/20 05:15 Glucose (Fingerstick) 384 mg/dL (70-99) 308 mg/dL (70-99) White Blood Count 13.1 x10^3/uL (4.0-11.0) Red Blood Count 4.52 x10^6/uL (4.30-5.70) Hemoglobin 13.2 g/dL (13.0-17.5) Hematocrit 39.4 % (39.0-53.0) Mean Corpuscular Volume 87 fL (79-100) Mean Corpuscular Hemoglobin 29 pg (25-35) Mean Corpuscular Hemoglobin Concent 34 g/dL (31-37) Red Cell Distribution Width 13.8 % (11.5-14.5) Platelet Count 348 x10^3/uL (140-400) Neutrophils (%) (Auto) 89 % (31-73) Lymphocytes (%) (Auto) 4 % (24-48) Monocytes (%) (Auto) 7 % (0-9) Eosinophils (%) (Auto) 0 % (0-3) Basophils (%) (Auto) 0 % (0-3) Neutrophils # (Auto) 11.7 x10^3/uL (1.8-7.7) Lymphocytes # (Auto) 0.5 x10^3/uL (1.0-4.8) Monocytes # (Auto) 0.9 x10^3/uL (0.0-1.1) Eosinophils # (Auto) 0.0 x10^3/uL (0.0-0.7) Basophils # (Auto) 0.0 x10^3/uL (0.0-0.2) Laboratory Tests Test 04/01/20 12:50 04/01/20 17:39 04/02/20 05:15 Glucose (Fingerstick) 384 mg/dL (70-99) 308 mg/dL (70-99) White Blood Count 13.1 x10^3/uL (4.0-11.0) Red Blood Count 4.52 x10^6/uL (4.30-5.70) Hemoglobin 13.2 g/dL (13.0-17.5) Hematocrit 39.4 % (39.0-53.0) Mean Corpuscular Volume 87 fL (79-100) Mean Corpuscular Hemoglobin 29 pg (25-35) Mean Corpuscular Hemoglobin Concent 34 g/dL (31-37) Red Cell Distribution Width 13.8 % (11.5-14.5) Platelet Count 348 x10^3/uL (140-400) Neutrophils (%) (Auto) 89 % (31-73) Lymphocytes (%) (Auto) 4 % (24-48) Monocytes (%) (Auto) 7 % (0-9) Eosinophils (%) (Auto) 0 % (0-3) Basophils (%) (Auto) 0 % (0-3) Neutrophils # (Auto) 11.7 x10^3/uL (1.8-7.7) Lymphocytes # (Auto) 0.5 x10^3/uL (1.0-4.8) Monocytes # (Auto) 0.9 x10^3/uL (0.0-1.1) Eosinophils # (Auto) 0.0 x10^3/uL (0.0-0.7) Basophils # (Auto) 0.0 x10^3/uL (0.0-0.2) Medications Active Scripts Medications Dose Route/Sig Max Daily Dose Days Date Category [place] 5-325 Tablet (Acetaminophen/Hydrocodone Bitart) 1 Each Tablet 1 Tab PO PRN Q6HRS PRN 12/27/18 Rx Lisinopril 10 Mg Tablet 1 Tab PO DAILY 12/27/18 Rx Bactrim Ds Tablet (Sulfamethoxazole/Trimethoprim) 1 Each Tablet 1 Tab PO BID 10 12/27/18 Rx Doxycycline Hyclate 100 Mg Capsule 1 Cap PO BID 12/22/18 Rx Diflucan (Fluconazole) 200 Mg Tablet 1 Tab PO DAILY 12/22/18 Rx Clotrimazole 15 Gm Cream..g. 1 [place] TP TID 12/22/18 Rx [place] 5-325 Tablet (Acetaminophen/Hydrocodone Bitart) 1 Each Tablet 1 Tab PO Q6HRS 12/11/18 Rx Naproxen 500 Mg Tablet 1 Tab PO BID 12/11/18 Rx Levaquin (Levofloxacin) 500 Mg Tablet 1 Tab PO DAILY 12/11/18 Rx Impression . IMPRESSION: 1. Acute hypoxic respiratory failure secondary to COVID-19 viral pneumonia. 2. Abnormal chest x-ray suggestive of viral pneumonia. 3. No significant tobacco use. Plan . RECOMMENDATIONS: 1. Continue bipap titrate fio2 to keep sat 90% vapotherm as tolerated 2. Continue dexamethasone. 3. Continue IV antibiotics. 4. Home medications. 5. DVT prophylaxis with Lovenox. 6. The patient is already hypoxic on 100% FiO2. Would not benefit from remdesivir. 7. Discussed with RN and RT. JO DE JESUS MD Apr 02, 2020 06:04
[2020-04-02] MEDS: DEXAMETHASONE SOD PHOS 4 MG/ML VIAL IVP SCH (07:53)
[2020-04-02] MEDS: ZINC SULFATE 220 MG CAPSULE. PO SCH (07:53)
[2020-04-02] MEDS: THIAMINE 100 MG TABLET. PO SCH (07:53)
[2020-04-02] MEDS: DOXYCYCLINE HYCLATE 100 MG in IV DEXTROSE 5% 100ML 100 ML IV SCH ×2 (07:54→20:49)
[2020-04-02] MEDS: cefTRIAXone IV Push 1 GM VIAL. IVP SCH (07:54)
[2020-04-02 08:06] LABS: BASE EXCESS ABG 4 mmol/L (-3-3); HCO3 ABG 27 mmol/L (21-28); PCO2 ABG 35 mmHg (35-46); PO2 ABG 94 mmHg (65-108); SAT O2 ABG 97 % (92-99)
[2020-04-02 08:08] LABS: FIO2 ABG 100
[2020-04-02] MEDS: INSULIN LISPRO 300 UNITS/3 ML VIAL. SQ SCH ×7 (09:00→20:52)
[2020-04-02] MEDS: LISINOPRIL 10 MG TABLET PO SCH (09:00)
[2020-04-02] MEDS ORDERED: ERGOCALCIFEROL (VITAMIN D2) 50,000 UNIT CAPSULE. PO ONE (09:00)
[2020-04-02] MEDS: INSULIN GLARGINE SYRINGE. SQ SCH ×2 (10:02→20:51)
[2020-04-02] MEDS ORDERED: ALBUTEROL SULFATE 8GM INHALER. INH PRN (12:00)
[2020-04-02] MEDS: ASCORBIC ACID 1,000 MG TABLET PO SCH (12:05)
[2020-04-02] MEDS: AMINO AC 3%/ELECTROLYTE/GLYCER 1,000 ML IV SCH (12:30)
--- NOTE | 2020-04-02 13:59 | PDOC ---
PROGRESS NOTES Date of Service: DATE: 04/02/20 TIME: 13:13 Chief Complaint Chief Complaint Acute respiratory failure with hypoxia - , transitioned to vapotherm. Steroids. - Isolate PUI forCOVID Sepsis - with increased HR and RR, pneumonia on CXR, given empiric antibiotics and IVF Acute encephalopathy - metabolic w/ hypoxia, improving Pneumonia, unspecified organism - given profound hypoxia concern for COVID and developing toward ARDS vs likely atypical gram negative pneumonia Hyperglycemia - no prior diabetes diagnosis to patient knowledge. will f/u A1c and treat with basal bolus plus insulin regimen Hyponatremia - likely hypovolemic given poor PO intake recently BILL - likely vasomotor nephropathy from above, no prior renal disease noted HTN - previously on lisinopril, will continue and add prn hydralazine Lactic acidosis - acute Severe protein calorie malnutrition - History of Present Illness History of Present Illness he feels improved, not able to eat much some confusion, but orientable, cont current on 30 liters vapotherm Vitals Vitals Vital Signs Date Time Temp Pulse Resp B/P (MAP) Pulse Ox O2 Delivery O2 Flow Rate FiO2 04/02/20 12:31 93 vapotherm 40.0 04/02/20 06:00 68 22 105/62 (76) 04/02/20 05:00 98.3 98.3 Physical Exam General: Alert, Cooperative, severe distress Abdomen: Normal bowel sounds, Soft, No tenderness, No hepatosplenomegaly, No masses Extremities: No clubbing, No cyanosis, No edema, Normal pulses, No tenderness/swelling Skin: No rashes, No breakdown, No significant lesion Labs LABS Laboratory Tests Test 04/01/20 17:39 04/01/20 20:07 04/02/20 05:15 04/02/20 08:25 Glucose (Fingerstick) 308 mg/dL (70-99) 374 mg/dL (70-99) White Blood Count 13.1 x10^3/uL (4.0-11.0) Red Blood Count 4.52 x10^6/uL (4.30-5.70) Hemoglobin 13.2 g/dL (13.0-17.5) Hematocrit 39.4 % (39.0-53.0) Mean Corpuscular Volume 87 fL (79-100) Mean Corpuscular Hemoglobin 29 pg (25-35) Mean Corpuscular Hemoglobin Concent 34 g/dL (31-37) Red Cell Distribution Width 13.8 % (11.5-14.5) Platelet Count 348 x10^3/uL (140-400) Neutrophils (%) (Auto) 89 % (31-73) Lymphocytes (%) (Auto) 4 % (24-48) Monocytes (%) (Auto) 7 % (0-9) Eosinophils (%) (Auto) 0 % (0-3) Basophils (%) (Auto) 0 % (0-3) Neutrophils # (Auto) 11.7 x10^3/uL (1.8-7.7) Lymphocytes # (Auto) 0.5 x10^3/uL (1.0-4.8) Monocytes # (Auto) 0.9 x10^3/uL (0.0-1.1) Eosinophils # (Auto) 0.0 x10^3/uL (0.0-0.7) Basophils # (Auto) 0.0 x10^3/uL (0.0-0.2) Sodium Level 133 mmol/L (136-145) Potassium Level 3.8 mmol/L (3.5-5.1) Chloride Level 97 mmol/L (98-107) Carbon Dioxide Level 29 mmol/L (21-32) Anion Gap 7 (6-14) Blood Urea Nitrogen 23 mg/dL (8-26) Creatinine 1.1 mg/dL (0.7-1.3) Estimated GFR (Cockcroft-Gault) 68.1 BUN/Creatinine Ratio 21 (6-20) Glucose Level 311 mg/dL (70-99) Calcium Level 7.7 mg/dL (8.5-10.1) Total Bilirubin 0.6 mg/dL (0.2-1.0) Aspartate Amino Transf (AST/SGOT) 24 U/L (15-37) Alanine Aminotransferase (ALT/SGPT) 27 U/L (16-63) Alkaline Phosphatase 106 U/L (46-116) Total Protein 6.5 g/dL (6.4-8.2) Albumin 1.8 g/dL (3.4-5.0) Albumin/Globulin Ratio 0.4 (1.0-1.7) O2 Saturation 97 % (92-99) Arterial Blood pH 7.50 (7.35-7.45) Arterial Blood pCO2 at Patient Temp 35 mmHg (35-46) Arterial Blood pO2 at Patient Temp 94 mmHg (65-108) Arterial Blood HCO3 27 mmol/L (21-28) Arterial Blood Base Excess 4 mmol/L (-3-3) FiO2 100 Test 04/02/20 08:42 04/02/20 11:59 Glucose (Fingerstick) 288 mg/dL (70-99) 352 mg/dL (70-99) Assessment and Plan Assessmemt and Plan Problems Medical Problems: (1) Hyperglycemia Status: Acute Comment Review of Relevant I have reviewed the following items hiren (where applicable) has been applied. Labs Laboratory Tests Test 03/31/20 15:07 03/31/20 17:03 03/31/20 18:28 04/01/20 05:00 White Blood Count 8.9 x10^3/uL (4.0-11.0) 7.4 x10^3/uL (4.0-11.0) Red Blood Count 4.49 x10^6/uL (4.30-5.70) 4.09 x10^6/uL (4.30-5.70) Hemoglobin 13.4 g/dL (13.0-17.5) 12.1 g/dL (13.0-17.5) Hematocrit 38.5 % (39.0-53.0) 35.1 % (39.0-53.0) Mean Corpuscular Volume 86 fL (79-100) 86 fL (79-100) Mean Corpuscular Hemoglobin 30 pg (25-35) 30 pg (25-35) Mean Corpuscular Hemoglobin Concent 35 g/dL (31-37) 35 g/dL (31-37) Red Cell Distribution Width 13.5 % (11.5-14.5) 13.5 % (11.5-14.5) Platelet Count 337 x10^3/uL (140-400) 297 x10^3/uL (140-400) Neutrophils (%) (Auto) 80 % (31-73) 84 % (31-73) Lymphocytes (%) (Auto) 7 % (24-48) 7 % (24-48) Monocytes (%) (Auto) 12 % (0-9) 8 % (0-9) Eosinophils (%) (Auto) 0 % (0-3) 0 % (0-3) Basophils (%) (Auto) 0 % (0-3) 0 % (0-3) Neutrophils # (Auto) 7.1 x10^3/uL (1.8-7.7) 6.3 x10^3/uL (1.8-7.7) Lymphocytes # (Auto) 0.7 x10^3/uL (1.0-4.8) 0.5 x10^3/uL (1.0-4.8) Monocytes # (Auto) 1.1 x10^3/uL (0.0-1.1) 0.6 x10^3/uL (0.0-1.1) Eosinophils # (Auto) 0.0 x10^3/uL (0.0-0.7) 0.0 x10^3/uL (0.0-0.7) Basophils # (Auto) 0.0 x10^3/uL (0.0-0.2) 0.0 x10^3/uL (0.0-0.2) Segmented Neutrophils % 75 % (35-66) Band Neutrophils % 3 % (0-9) Lymphocytes % 7 % (24-48) Atypical Lymphocytes % (Manual) 2 % (0-0) Monocytes % 10 % (0-10) Metamyelocytes % 2 % (0-0) Myelocytes % 1 % (0-0) Nucleated Red Blood Cells 3 Platelet Estimate Adequate (ADEQUATE) Giant Platelets Occ Polychromasia Slight Prothrombin Time 15.3 SEC (11.7-14.0) Prothromb Time International Ratio 1.2 (0.8-1.1) Activated Partial Thromboplast Time 32 SEC (24-38) Sodium Level 131 mmol/L (136-145) 131 mmol/L (136-145) Potassium Level 3.8 mmol/L (3.5-5.1) 3.8 mmol/L (3.5-5.1) Chloride Level 91 mmol/L (98-107) 94 mmol/L (98-107) Carbon Dioxide Level 28 mmol/L (21-32) 28 mmol/L (21-32) Anion Gap 12 (6-14) 9 (6-14) Blood Urea Nitrogen 24 mg/dL (8-26) 22 mg/dL (8-26) Creatinine 1.2 mg/dL (0.7-1.3) 1.0 mg/dL (0.7-1.3) Estimated GFR (Cockcroft-Gault) 61.6 76.0 BUN/Creatinine Ratio 20 (6-20) 22 (6-20) Glucose Level 346 mg/dL (70-99) 317 mg/dL (70-99) Lactic Acid Level 2.4 mmol/L (0.4-2.0) 1.5 mmol/L (0.4-2.0) Calcium Level 7.6 mg/dL (8.5-10.1) 7.3 mg/dL (8.5-10.1) Magnesium Level 2.7 mg/dL (1.8-2.4) Total Bilirubin 0.9 mg/dL (0.2-1.0) 0.6 mg/dL (0.2-1.0) Aspartate Amino Transf (AST/SGOT) 34 U/L (15-37) 21 U/L (15-37) Alanine Aminotransferase (ALT/SGPT) 33 U/L (16-63) 28 U/L (16-63) Alkaline Phosphatase 108 U/L (46-116) 90 U/L (46-116) Creatine Kinase 56 U/L (39-308) Creatine Kinase MB (Mass) < 0.5 ng/mL (0.0-3.6) Creatine Kinase MB Relative Index 0.9 % (0-4) Troponin I Quantitative < 0.017 ng/mL (0.000-0.055) < 0.017 ng/mL (0.000-0.055) OY-Lbo-O-Type Natriuretic Peptide 294 pg/mL (0-124) Total Protein 7.1 g/dL (6.4-8.2) 6.5 g/dL (6.4-8.2) Albumin 2.1 g/dL (3.4-5.0) 1.7 g/dL (3.4-5.0) Albumin/Globulin Ratio 0.4 (1.0-1.7) 0.4 (1.0-1.7) Lipase 110 U/L (73-393) Procalcitonin 0.42 ng/mL (0.00-0.10) Thyroid Stimulating Hormone (TSH) 0.967 uIU/mL (0.358-3.74) Urine Collection Type Unknown Urine Color Yellow Urine Clarity Clear Urine pH 5.0 (<5.0-8.0) Urine Specific [place] >=1.030 (1.000-1.030) Urine Protein 100 mg/dL (NEG-TRACE) Urine Glucose (UA) >=1000 mg/dL (NEG) Urine Ketones (Stick) 40 mg/dL (NEG) Urine Blood Negative (NEG) Urine Nitrite Negative (NEG) Urine Bilirubin Negative (NEG) Urine Urobilinogen Dipstick 1.0 mg/dL (0.2 mg/dL) Urine Leukocyte Esterase Negative (NEG) Urine RBC Occ /HPF (0-2) Urine WBC Occ /HPF (0-4) Urine Squamous Epithelial Cells Few /LPF Urine Amorphous Sediment Present /HPF Urine Bacteria 0 /HPF (0-FEW) Urine Mucus Slight /LPF Urine Opiates Screen Neg (NEG) Urine Methadone Screen Neg (NEG) Urine Barbiturates Neg (NEG) Urine Phencyclidine Screen Neg (NEG) Urine Amphetamine/Methamphetamine Neg (NEG) Urine Benzodiazepines Screen Neg (NEG) Urine Cocaine Screen Neg (NEG) Urine Cannabinoids Screen Neg (NEG) Urine Ethyl Alcohol Neg (NEG) Coronavirus (PCR) Detected (Not Detected) Test 04/01/20 12:50 04/01/20 17:39 04/01/20 20:07 04/02/20 05:15 Glucose (Fingerstick) 384 mg/dL (70-99) 308 mg/dL (70-99) 374 mg/dL (70-99) White Blood Count 13.1 x10^3/uL (4.0-11.0) Red Blood Count 4.52 x10^6/uL (4.30-5.70) Hemoglobin 13.2 g/dL (13.0-17.5) Hematocrit 39.4 % (39.0-53.0) Mean Corpuscular Volume 87 fL (79-100) Mean Corpuscular Hemoglobin 29 pg (25-35) Mean Corpuscular Hemoglobin Concent 34 g/dL (31-37) Red Cell Distribution Width 13.8 % (11.5-14.5) Platelet Count 348 x10^3/uL (140-400) Neutrophils (%) (Auto) 89 % (31-73) Lymphocytes (%) (Auto) 4 % (24-48) Monocytes (%) (Auto) 7 % (0-9) Eosinophils (%) (Auto) 0 % (0-3) Basophils (%) (Auto) 0 % (0-3) Neutrophils # (Auto) 11.7 x10^3/uL (1.8-7.7) Lymphocytes # (Auto) 0.5 x10^3/uL (1.0-4.8) Monocytes # (Auto) 0.9 x10^3/uL (0.0-1.1) Eosinophils # (Auto) 0.0 x10^3/uL (0.0-0.7) Basophils # (Auto) 0.0 x10^3/uL (0.0-0.2) Sodium Level 133 mmol/L (136-145) Potassium Level 3.8 mmol/L (3.5-5.1) Chloride Level 97 mmol/L (98-107) Carbon Dioxide Level 29 mmol/L (21-32) Anion Gap 7 (6-14) Blood Urea Nitrogen 23 mg/dL (8-26) Creatinine 1.1 mg/dL (0.7-1.3) Estimated GFR (Cockcroft-Gault) 68.1 BUN/Creatinine Ratio 21 (6-20) Glucose Level 311 mg/dL (70-99) Calcium Level 7.7 mg/dL (8.5-10.1) Total Bilirubin 0.6 mg/dL (0.2-1.0) Aspartate Amino Transf (AST/SGOT) 24 U/L (15-37) Alanine Aminotransferase (ALT/SGPT) 27 U/L (16-63) Alkaline Phosphatase 106 U/L (46-116) Total Protein 6.5 g/dL (6.4-8.2) Albumin 1.8 g/dL (3.4-5.0) Albumin/Globulin Ratio 0.4 (1.0-1.7) Test 04/02/20 08:25 04/02/20 08:42 04/02/20 11:59 O2 Saturation 97 % (92-99) Arterial Blood pH 7.50 (7.35-7.45) Arterial Blood pCO2 at Patient Temp 35 mmHg (35-46) Arterial Blood pO2 at Patient Temp 94 mmHg (65-108) Arterial Blood HCO3 27 mmol/L (21-28) Arterial Blood Base Excess 4 mmol/L (-3-3) FiO2 100 Glucose (Fingerstick) 288 mg/dL (70-99) 352 mg/dL (70-99) Laboratory Tests Test 04/01/20 17:39 04/01/20 20:07 04/02/20 05:15 04/02/20 08:25 Glucose (Fingerstick) 308 mg/dL (70-99) 374 mg/dL (70-99) White Blood Count 13.1 x10^3/uL (4.0-11.0) Red Blood Count 4.52 x10^6/uL (4.30-5.70) Hemoglobin 13.2 g/dL (13.0-17.5) Hematocrit 39.4 % (39.0-53.0) Mean Corpuscular Volume 87 fL (79-100) Mean Corpuscular Hemoglobin 29 pg (25-35) Mean Corpuscular Hemoglobin Concent 34 g/dL (31-37) Red Cell Distribution Width 13.8 % (11.5-14.5) Platelet Count 348 x10^3/uL (140-400) Neutrophils (%) (Auto) 89 % (31-73) Lymphocytes (%) (Auto) 4 % (24-48) Monocytes (%) (Auto) 7 % (0-9) Eosinophils (%) (Auto) 0 % (0-3) Basophils (%) (Auto) 0 % (0-3) Neutrophils # (Auto) 11.7 x10^3/uL (1.8-7.7) Lymphocytes # (Auto) 0.5 x10^3/uL (1.0-4.8) Monocytes # (Auto) 0.9 x10^3/uL (0.0-1.1) Eosinophils # (Auto) 0.0 x10^3/uL (0.0-0.7) Basophils # (Auto) 0.0 x10^3/uL (0.0-0.2) Sodium Level 133 mmol/L (136-145) Potassium Level 3.8 mmol/L (3.5-5.1) Chloride Level 97 mmol/L (98-107) Carbon Dioxide Level 29 mmol/L (21-32) Anion Gap 7 (6-14) Blood Urea Nitrogen 23 mg/dL (8-26) Creatinine 1.1 mg/dL (0.7-1.3) Estimated GFR (Cockcroft-Gault) 68.1 BUN/Creatinine Ratio 21 (6-20) Glucose Level 311 mg/dL (70-99) Calcium Level 7.7 mg/dL (8.5-10.1) Total Bilirubin 0.6 mg/dL (0.2-1.0) Aspartate Amino Transf (AST/SGOT) 24 U/L (15-37) Alanine Aminotransferase (ALT/SGPT) 27 U/L (16-63) Alkaline Phosphatase 106 U/L (46-116) Total Protein 6.5 g/dL (6.4-8.2) Albumin 1.8 g/dL (3.4-5.0) Albumin/Globulin Ratio 0.4 (1.0-1.7) O2 Saturation 97 % (92-99) Arterial Blood pH 7.50 (7.35-7.45) Arterial Blood pCO2 at Patient Temp 35 mmHg (35-46) Arterial Blood pO2 at Patient Temp 94 mmHg (65-108) Arterial Blood HCO3 27 mmol/L (21-28) Arterial Blood Base Excess 4 mmol/L (-3-3) FiO2 100 Test 04/02/20 08:42 04/02/20 11:59 Glucose (Fingerstick) 288 mg/dL (70-99) 352 mg/dL (70-99) Microbiology 03/31/20 Blood Culture - Preliminary, Resulted NO GROWTH AFTER 1 DAY Medications Current Medications Sterile Water (WATER for RESP) 1,000 ml CONT PRN INH VIA VAPOTHERM DEVICE Last administered on 04/02/20at 03:30; Start 03/31/20 at 17:45 Dexamethasone Sodium Phosphate (Decadron) 10 mg 1X ONCE IV Last administered on 03/31/20at 18:56; Start 03/31/20 at 18:30; Stop 03/31/20 at 18:31; Status DC Azithromycin 250 ml @ 250 mls/hr 1X ONCE IV Last administered on 03/31/20at 19:03; Start 03/31/20 at 18:30; Stop 03/31/20 at 19:29; Status DC Ceftriaxone Sodium (Rocephin) 1 gm 1X ONCE IVP Last administered on 03/31/20at 18:59; Start 03/31/20 at 18:30; Stop 03/31/20 at 18:31; Status DC Insulin Glargine (Lantus Syringe) 10 unit QHS SQ ; Start 03/31/20 at 21:00; Stop 03/31/20 at 23:03; Status DC Insulin Human Lispro (HumaLOG) 0-9 UNITS TIDWMEALS SQ ; Start 04/01/20 at 08:00; Stop 03/31/20 at 23:03; Status DC Dextrose (Dextrose 50%-Water Syringe) 12.5 gm PRN Q15MIN PRN IV SEE COMMENTS; Start 03/31/20 at 19:15 Ondansetron HCl (Zofran) 4 mg PRN Q4HRS PRN IV NAUSEA/VOMITING; Start 03/31/20 at 19:15 Zolpidem Tartrate (Ambien) 5 mg PRN QHS PRN PO INSOMNIA Last administered on 04/01/20at 21:47; Start 03/31/20 at 19:15 Acetaminophen (Tylenol) 650 mg PRN Q4HRS PRN PO TEMP OVER 100.4F OR MILD PAIN; Start 03/31/20 at 19:15; Stop 04/01/20 at 14:27; Status DC Enoxaparin Sodium (Lovenox 40mg Syringe) 40 mg Q24H SQ Last administered on 04/01/20at 20:26; Start 03/31/20 at 21:00 Dexamethasone Sodium Phosphate (Decadron) 4 mg DAILY IVP Last administered on 04/02/20at 07:53; Start 04/01/20 at 09:00 Zinc Sulfate (Orazinc) 220 mg DAILY PO Last administered on 04/02/20at 07:53; Start 04/01/20 at 09:00 Thiamine Mononitrate (Vitamin B-1) 100 mg DAILY PO Last administered on 04/02/20at 07:53; Start 04/01/20 at 09:00 Guaifenesin (Robitussin Dm) 10 ml PRN Q6HRS PRN PO COUGH; Start 03/31/20 at 19:15 Doxycycline Hyclate 100 mg/ Dextrose 100 ml @ 50 mls/hr BID IV Last administered on 04/02/20at 07:54; Start 03/31/20 at 21:00 Ceftriaxone Sodium (Rocephin) 1 gm DAILY IVP Last administered on 04/02/20at 07:54; Start 04/01/20 at 09:00 Ondansetron HCl (Zofran) 4 mg PRN Q8HRS PRN IV NAUSEA/VOMITING; Start 03/31/20 at 20:30; Stop 04/01/20 at 14:28; Status DC Morphine Sulfate (Morphine Sulfate) 4 mg PRN Q2HR PRN IV PAIN; Start 03/31/20 at 20:30; Stop 04/01/20 at 20:29; Status DC Acetaminophen (Tylenol) 650 mg PRN Q4HRS PRN PO FEVER > 100.3'F; Start 03/31/20 at 20:30; Stop 03/31/20 at 23:03; Status DC Insulin Human Lispro (HumaLOG) 0-7 UNITS TIDWMEALS SQ ; Start 04/01/20 at 08:00; Stop 03/31/20 at 23:03; Status DC Dextrose (Dextrose 50%-Water Syringe) 12.5 gm PRN Q15MIN PRN IV SEE COMMENTS; Start 03/31/20 at 20:30; Stop 04/01/20 at 14:28; Status DC Lisinopril (Prinivil) 10 mg DAILY PO Last administered on 04/01/20at 08:21; Start 04/01/20 at 09:00 Metoprolol Tartrate (Lopressor Vial) 5 mg PRN Q6HRS PRN IVP HYPERTENSION; Start 03/31/20 at 22:45 Amino Acids/ Glycerin/ Electrolytes 1,000 ml @ 80 mls/hr [id number] IV Last administered on 03/31/20at 23:27; Start 03/31/20 at 23:00 Insulin Glargine (Lantus Syringe) 20 unit QHS SQ Last administered on 04/01/20at 20:30; Start 03/31/20 at 23:15; Stop 04/02/20 at 08:52; Status DC Insulin Human Lispro (HumaLOG) 0-9 UNITS TIDWMEALHC SQ Last administered on 04/02/20at 12:06; Start 04/01/20 at 08:00 Acetaminophen (Tylenol) 650 mg PRN Q6HRS PRN PO FEVER > 100.3'F; Start 03/31/20 at 23:00 Insulin Human Lispro (HumaLOG) 5 units TIDWMEALS SQ Last administered on 04/01/20at 17:00; Start 04/01/20 at 08:00; Stop 04/02/20 at 08:52; Status DC Insulin Human Lispro (HumaLOG) 16 units 1X ONCE SQ Last administered on 03/31/20at 23:23; Start 03/31/20 at 23:15; Stop 03/31/20 at 23:16; Status DC Sodium Chloride 1,000 ml @ 75 mls/hr [id number] IV Last administered on 04/01/20at 19:00; Start 04/01/20 at 19:00 Ascorbic Acid (Vitamin C) 1,000 mg DAILY PO Last administered on 04/02/20at 12:05; Start 04/02/20 at 09:00 Ergocalciferol (Vitamin D2) 50,000 unit 1X ONCE PO Last administered on 04/02/20at 12:05; Start 04/02/20 at 09:00; Stop 04/02/20 at 09:01; Status DC Insulin Glargine (Lantus Syringe) 25 unit BID SQ Last administered on 04/02/20at 10:02; Start 04/02/20 at 09:30 Insulin Human Lispro (HumaLOG) 15 units TIDWMEALS SQ Last administered on 04/02/20at 12:00; Start 04/02/20 at 09:00 Albuterol Sulfate (Ventolin Hfa) 1 puff PRN Q6HRS PRN INH SHORTNESS OF BREATH; Start 04/02/20 at 12:00 Active Scripts Active [place] 5-325 Tablet (Acetaminophen/Hydrocodone Bitart) 1 Each Tablet 1 Tab PO PRN Q6HRS PRN Lisinopril 10 Mg Tablet 1 Tab PO DAILY Bactrim Ds Tablet (Sulfamethoxazole/Trimethoprim) 1 Each Tablet 1 Tab PO BID 10 Days Doxycycline Hyclate 100 Mg Capsule 1 Cap PO BID Diflucan (Fluconazole) 200 Mg Tablet 1 Tab PO DAILY Clotrimazole 15 Gm Cream..g. 1 [place] TP TID [place] 5-325 Tablet (Acetaminophen/Hydrocodone Bitart) 1 Each Tablet 1 Tab PO Q6HRS Naproxen 500 Mg Tablet 1 Tab PO BID Levaquin (Levofloxacin) 500 Mg Tablet 1 Tab PO DAILY Vitals/I & O Vital Sign - Last 24 Hours 04/01/20 04/01/20 04/01/20 04/01/20 14:00 15:00 16:00 16:00 Temp 98.4 98.4 Pulse 80 80 78 Resp 24 24 24 B/P (MAP) 111/66 (81) Pulse Ox 86 86 84 O2 Delivery Vapotherm Vapotherm Vapotherm Nasal Cannula O2 Flow Rate 30.0 30.0 30.0 30.0 04/01/20 04/01/20 04/01/20 04/01/20 16:01 17:00 18:00 19:00 Pulse 79 79 82 Resp 24 B/P (MAP) 116/65 (82) 146/88 (107) 122/62 (82) Pulse Ox 90 90 87 82 O2 Delivery vapotherm Vapotherm Vapotherm Vapotherm O2 Flow Rate 30.0 30.0 30.0 30.0 04/01/20 04/01/20 04/01/20 04/01/20 20:00 20:06 20:20 21:00 Temp 98.2 98.2 Pulse 80 82 Resp 24 24 B/P (MAP) 111/58 (75) 103/53 (70) Pulse Ox 89 91 81 O2 Delivery Vapotherm vapotherm Nasal Cannula Vapotherm O2 Flow Rate 40.0 40.0 40.0 40.0 04/01/20 04/01/20 04/02/20 04/02/20 22:00 23:00 00:00 00:13 Temp 98.4 98.4 Pulse 76 75 70 Resp B/P (MAP) 108/58 (75) 102/55 (71) 93/56 (68) Pulse Ox 91 86 87 O2 Delivery Vapotherm Vapotherm Vapotherm Nasal Cannula O2 Flow Rate 40.0 40.0 40.0 40.0 04/02/20 04/02/20 04/02/20 04/02/20 00:39 00:40 01:00 02:00 Temp 98.4 98.4 Pulse 72 70 Resp 24 24 B/P (MAP) 108/57 (74) 96/52 (67) Pulse Ox 96 96 89 82 O2 Delivery vapotherm and nonrebreather vapotherm vapotherm and nonrebreather vapotherm and nonrebreather O2 Flow Rate 40.0 40.0 40.0 40.0 04/02/20 04/02/20 04/02/20 04/02/20 03:00 03:20 03:25 04:00 Pulse 72 Resp 24 B/P (MAP) 138/75 (96) Pulse Ox 89 84 90 O2 Delivery vapotherm and nonrebreather vapotherm BiPAP/CPAP Bi-pap O2 Flow Rate 40.0 40.0 04/02/20 04/02/20 04/02/20 04/02/20 04:00 05:00 06:00 07:55 Temp 98.3 98.3 Pulse 70 68 68 Resp B/P (MAP) 96/59 (71) 124/72 (89) 105/62 (76) Pulse Ox 96 99 94 94 O2 Delivery BiPAP/CPAP BiPAP/CPAP BiPAP/CPAP BiPAP/CPAP 04/02/20 04/02/20 04/02/20 04/02/20 08:00 08:10 08:15 12:00 Pulse Ox 83 O2 Delivery Nasal Cannula VAPOTHERM Nasal Cannula O2 Flow Rate 40.0 40.0 40.0 04/02/20 12:31 Pulse Ox 93 O2 Delivery vapotherm O2 Flow Rate 40.0 Intake and Output 04/01/20 04/01/20 04/02/20 15:00 23:00 07:00 Intake Total 500 ml 1513 ml 230 ml Output Total 650 ml 550 ml 250 ml Balance -150 ml 963 ml -20 ml Justicifation of Admission Dx: Justifications for Admission: Justification of Admission Dx: Yes (hypoxia) ROSA HENDRICKS MD Apr 02, 2020 13:59
[2020-04-02] MEDS: ENOXAPARIN 40 MG/0.4 ML SYRINGE. SQ SCH (20:50)
[2020-04-02] MEDS: ZOLPIDEM 5 MG TABLET. PO PRN (20:50)
[2020-04-02] MEDS: IV NORMAL SALINE 1000ML BAG 1,000 ML IV SCH ×2 (20:54→21:40)
[2020-04-03] VITALS (23 sets, daily range): BP systolic 84–176; BP diastolic 49–86
--- NOTE | 2020-04-03 04:15 | NUR ---
Pt got out of bed,was seen standing and stumbling in the room by Camron DONALD, the bed alarm went off but pt was already out of bed. Pt stumbled on the vapotherm and got a scratch across the back, pt was assisted back to bed, per Camron DONALD pt did not fall. Dr Bishop was notified of the incident. Rogers catheter was inserted at this time.Pt was instructed pt to use call light. Pt is alert and oriented x4 but impulsive, bed exit alarm remains on. Will monitor.
[2020-04-03] MEDS: INSULIN LISPRO 300 UNITS/3 ML VIAL. SQ SCH ×7 (08:00→20:49)
[2020-04-03] MEDS: DOXYCYCLINE HYCLATE 100 MG in IV DEXTROSE 5% 100ML 100 ML IV SCH ×2 (08:47→21:05)
[2020-04-03] MEDS: cefTRIAXone IV Push 1 GM VIAL. IVP SCH (08:47)
[2020-04-03] MEDS: DEXAMETHASONE SOD PHOS 4 MG/ML VIAL IVP SCH ×2 (08:48→20:48)
[2020-04-03] MEDS: LISINOPRIL 10 MG TABLET PO SCH ×2 (08:48→09:00)
[2020-04-03] MEDS: THIAMINE 100 MG TABLET. PO SCH ×2 (08:49→09:00)
[2020-04-03] MEDS: ASCORBIC ACID 1,000 MG TABLET PO SCH ×2 (08:49→09:00)
[2020-04-03] MEDS: ZINC SULFATE 220 MG CAPSULE. PO SCH ×2 (08:49→09:00)
[2020-04-03] MEDS: AMINO AC 3%/ELECTROLYTE/GLYCER 1,000 ML IV SCH ×3 (08:54→23:13)
[2020-04-03] MEDS: INSULIN GLARGINE SYRINGE. SQ SCH ×2 (08:59→20:50)
[2020-04-03 09:34] LABS: BASE EXCESS ABG 1 mmol/L (-3-3); HCO3 ABG 24 mmol/L (21-28); PCO2 ABG 32 mmHg (35-46); PO2 ABG 54 mmHg (65-108); SAT O2 ABG 89 % (92-99)
[2020-04-03 09:35] LABS: FIO2 ABG 90
[2020-04-03] MEDS: ENOXAPARIN 40 MG/0.4 ML SYRINGE. SQ SCH ×2 (10:50→20:48)
--- NOTE | 2020-04-03 10:56 | PDOC ---
PULMONARY PROGRESS NOTES DATE: 04/03/20 TIME: 10:55 Subjective desated on vapotherm nrb now on bipap 20/10 fio2 100%, confused Vitals Vital Signs Date Time Temp Pulse Resp B/P (MAP) Pulse Ox O2 Delivery O2 Flow Rate FiO2 04/03/20 10:00 84 22 116/64 (81) 93 BiPAP/CPAP 04/03/20 07:00 99.1 99.1 04/03/20 01:00 40.0 Comments on bipap no distress nc at rrr no accessory muscle use no rash Labs Laboratory Tests Test 04/01/20 12:50 04/01/20 17:39 04/01/20 20:07 04/02/20 05:15 Glucose (Fingerstick) 384 mg/dL (70-99) 308 mg/dL (70-99) 374 mg/dL (70-99) White Blood Count 13.1 x10^3/uL (4.0-11.0) Red Blood Count 4.52 x10^6/uL (4.30-5.70) Hemoglobin 13.2 g/dL (13.0-17.5) Hematocrit 39.4 % (39.0-53.0) Mean Corpuscular Volume 87 fL (79-100) Mean Corpuscular Hemoglobin 29 pg (25-35) Mean Corpuscular Hemoglobin Concent 34 g/dL (31-37) Red Cell Distribution Width 13.8 % (11.5-14.5) Platelet Count 348 x10^3/uL (140-400) Neutrophils (%) (Auto) 89 % (31-73) Lymphocytes (%) (Auto) 4 % (24-48) Monocytes (%) (Auto) 7 % (0-9) Eosinophils (%) (Auto) 0 % (0-3) Basophils (%) (Auto) 0 % (0-3) Neutrophils # (Auto) 11.7 x10^3/uL (1.8-7.7) Lymphocytes # (Auto) 0.5 x10^3/uL (1.0-4.8) Monocytes # (Auto) 0.9 x10^3/uL (0.0-1.1) Eosinophils # (Auto) 0.0 x10^3/uL (0.0-0.7) Basophils # (Auto) 0.0 x10^3/uL (0.0-0.2) Sodium Level 133 mmol/L (136-145) Potassium Level 3.8 mmol/L (3.5-5.1) Chloride Level 97 mmol/L (98-107) Carbon Dioxide Level 29 mmol/L (21-32) Anion Gap 7 (6-14) Blood Urea Nitrogen 23 mg/dL (8-26) Creatinine 1.1 mg/dL (0.7-1.3) Estimated GFR (Cockcroft-Gault) 68.1 BUN/Creatinine Ratio 21 (6-20) Glucose Level 311 mg/dL (70-99) Calcium Level 7.7 mg/dL (8.5-10.1) Total Bilirubin 0.6 mg/dL (0.2-1.0) Aspartate Amino Transf (AST/SGOT) 24 U/L (15-37) Alanine Aminotransferase (ALT/SGPT) 27 U/L (16-63) Alkaline Phosphatase 106 U/L (46-116) Total Protein 6.5 g/dL (6.4-8.2) Albumin 1.8 g/dL (3.4-5.0) Albumin/Globulin Ratio 0.4 (1.0-1.7) Test 04/02/20 08:25 04/02/20 08:42 04/02/20 11:59 04/02/20 17:27 O2 Saturation 97 % (92-99) Arterial Blood pH 7.50 (7.35-7.45) Arterial Blood pCO2 at Patient Temp 35 mmHg (35-46) Arterial Blood pO2 at Patient Temp 94 mmHg (65-108) Arterial Blood HCO3 27 mmol/L (21-28) Arterial Blood Base Excess 4 mmol/L (-3-3) FiO2 100 Glucose (Fingerstick) 288 mg/dL (70-99) 352 mg/dL (70-99) 316 mg/dL (70-99) Test 04/02/20 20:37 04/03/20 09:30 Glucose (Fingerstick) 214 mg/dL (70-99) O2 Saturation 89 % (92-99) Arterial Blood pH 7.48 (7.35-7.45) Arterial Blood pCO2 at Patient Temp 32 mmHg (35-46) Arterial Blood pO2 at Patient Temp 54 mmHg (65-108) Arterial Blood HCO3 24 mmol/L (21-28) Arterial Blood Base Excess 1 mmol/L (-3-3) FiO2 90 Laboratory Tests Test 04/02/20 11:59 04/02/20 17:27 04/02/20 20:37 04/03/20 09:30 Glucose (Fingerstick) 352 mg/dL (70-99) 316 mg/dL (70-99) 214 mg/dL (70-99) O2 Saturation 89 % (92-99) Arterial Blood pH 7.48 (7.35-7.45) Arterial Blood pCO2 at Patient Temp 32 mmHg (35-46) Arterial Blood pO2 at Patient Temp 54 mmHg (65-108) Arterial Blood HCO3 24 mmol/L (21-28) Arterial Blood Base Excess 1 mmol/L (-3-3) FiO2 90 Medications Active Scripts Medications Dose Route/Sig Max Daily Dose Days Date Category [place] 5-325 Tablet (Acetaminophen/Hydrocodone Bitart) 1 Each Tablet 1 Tab PO PRN Q6HRS PRN 12/27/18 Rx Lisinopril 10 Mg Tablet 1 Tab PO DAILY 12/27/18 Rx Bactrim Ds Tablet (Sulfamethoxazole/Trimethoprim) 1 Each Tablet 1 Tab PO BID 10 12/27/18 Rx Doxycycline Hyclate 100 Mg Capsule 1 Cap PO BID 12/22/18 Rx Diflucan (Fluconazole) 200 Mg Tablet 1 Tab PO DAILY 12/22/18 Rx Clotrimazole 15 Gm Cream..g. 1 [place] TP TID 12/22/18 Rx [place] 5-325 Tablet (Acetaminophen/Hydrocodone Bitart) 1 Each Tablet 1 Tab PO Q6HRS 12/11/18 Rx Naproxen 500 Mg Tablet 1 Tab PO BID 12/11/18 Rx Levaquin (Levofloxacin) 500 Mg Tablet 1 Tab PO DAILY 12/11/18 Rx Impression . IMPRESSION: 1. Acute hypoxic respiratory failure secondary to COVID-19 viral pneumonia. 2. Abnormal chest x-ray suggestive of viral pneumonia. 3. No significant tobacco use. Plan . RECOMMENDATIONS: 1. Continue bipap titrate fio2 to keep sat 90% confused will do abg vapotherm as tolerated 2. Continue dexamethasone. 3. Continue IV antibiotics. 4. Home medications. 5. DVT prophylaxis with Lovenox. 6. The patient is already hypoxic on 100% FiO2. Would not benefit from remdesivir. 7. Discussed with SHABANA and RT. JO DE JESUS MD Apr 03, 2020 10:56
[2020-04-03 12:53] LABS: BASO % 0 % (0-3); EOS % 0 % (0-3); HEMATOCRIT 34.8 % (39.0-53.0); LYMPH # 0.2 x10^3/uL (1.0-4.8); LYMPH % 2 % (24-48); MEAN CORPUSCULAR HEMOGLOBIN 30 pg (25-35); MEAN CORPUSCULAR HGB CONC 35 g/dL (31-37); MEAN CORPUSCULAR VOLUME 86 fL (79-100); MONO # 0.5 x10^3/uL (0.0-1.1); MONO % 5 % (0-9); NEUT # 10.7 x10^3/uL (1.8-7.7); NEUT % 93 % (31-73); PLATELET COUNT 162 x10^3/uL (140-400); RED BLOOD COUNT 4.04 x10^6/uL (4.30-5.70); RED CELL DISTRIBUTION WIDTH 13.4 % (11.5-14.5); WHITE BLOOD COUNT 11.5 x10^3/uL (4.0-11.0)
[2020-04-03 13:02] LABS: CALCIUM 7.6 mg/dL (8.5-10.1); CREATININE 0.9 mg/dL (0.7-1.3); GFR 85.8; POTASSIUM 4.2 mmol/L (3.5-5.1)
[2020-04-03 13:08] LABS: ALBUMIN 1.5 g/dL (3.4-5.0); ALBUMIN/GLOBULIN RATIO 0.4 (1.0-1.7); TOTAL BILIRUBIN 0.6 mg/dL (0.2-1.0); TOTAL PROTEIN 5.7 g/dL (6.4-8.2)
--- NOTE | 2020-04-03 14:54 | PDOC ---
PROGRESS NOTES Date of Service: DATE: 04/03/20 TIME: 14:52 Chief Complaint Chief Complaint Acute respiratory failure with hypoxia - now worse, on BIPAP, intubation risk high for ARDS Sepsis - with increased HR and RR, pneumonia on CXR, empiric antibiotics and IVF Acute encephalopathy - metabolic w/ hypoxia, improving Pneumonia, w/ COVID Hyperglycemia - no prior diabetes diagnosis to patient knowledge. will f/u A1c and treat with basal bolus plus insulin regimen Hyponatremia - likely hypovolemic given poor PO intake recently BILL - likely vasomotor nephropathy from above, no prior renal disease noted HTN - previously on lisinopril, will continue and add prn hydralazine Lactic acidosis - acute Severe protein calorie malnutrition - History of Present Illness History of Present Illness cont the aggresive Steroids. - Isolate forCOVID on BIPAP, consider intubating if mental status gets poor on PPN for nutrition support more confused, cont current Vitals Vitals Vital Signs Date Time Temp Pulse Resp B/P (MAP) Pulse Ox O2 Delivery O2 Flow Rate FiO2 04/03/20 13:00 83 22 113/60 (77) 93 BiPAP/CPAP 04/03/20 12:00 40.0 04/03/20 11:00 98.8 98.8 Physical Exam General: Alert, severe distress Heart: Normal S1, Normal S2, Other (tachycardia, no murmur) Abdomen: Normal bowel sounds, Soft, No tenderness, No hepatosplenomegaly, No masses Extremities: No clubbing, No cyanosis, No edema, Normal pulses, No tenderness/swelling Skin: No rashes, No breakdown, No significant lesion Labs LABS Laboratory Tests Test 04/02/20 17:27 04/02/20 20:37 04/03/20 09:30 04/03/20 12:40 Glucose (Fingerstick) 316 mg/dL (70-99) 214 mg/dL (70-99) O2 Saturation 89 % (92-99) Arterial Blood pH 7.48 (7.35-7.45) Arterial Blood pCO2 at Patient Temp 32 mmHg (35-46) Arterial Blood pO2 at Patient Temp 54 mmHg (65-108) Arterial Blood HCO3 24 mmol/L (21-28) Arterial Blood Base Excess 1 mmol/L (-3-3) FiO2 90 White Blood Count 11.5 x10^3/uL (4.0-11.0) Red Blood Count 4.04 x10^6/uL (4.30-5.70) Hemoglobin 12.0 g/dL (13.0-17.5) Hematocrit 34.8 % (39.0-53.0) Mean Corpuscular Volume 86 fL (79-100) Mean Corpuscular Hemoglobin 30 pg (25-35) Mean Corpuscular Hemoglobin Concent 35 g/dL (31-37) Red Cell Distribution Width 13.4 % (11.5-14.5) Platelet Count 162 x10^3/uL (140-400) Neutrophils (%) (Auto) 93 % (31-73) Lymphocytes (%) (Auto) 2 % (24-48) Monocytes (%) (Auto) 5 % (0-9) Eosinophils (%) (Auto) 0 % (0-3) Basophils (%) (Auto) 0 % (0-3) Neutrophils # (Auto) 10.7 x10^3/uL (1.8-7.7) Lymphocytes # (Auto) 0.2 x10^3/uL (1.0-4.8) Monocytes # (Auto) 0.5 x10^3/uL (0.0-1.1) Eosinophils # (Auto) 0.0 x10^3/uL (0.0-0.7) Basophils # (Auto) 0.0 x10^3/uL (0.0-0.2) Sodium Level 135 mmol/L (136-145) Potassium Level 4.2 mmol/L (3.5-5.1) Chloride Level 102 mmol/L (98-107) Carbon Dioxide Level 25 mmol/L (21-32) Anion Gap 8 (6-14) Blood Urea Nitrogen 21 mg/dL (8-26) Creatinine 0.9 mg/dL (0.7-1.3) Estimated GFR (Cockcroft-Gault) 85.8 BUN/Creatinine Ratio 23 (6-20) Glucose Level 170 mg/dL (70-99) Calcium Level 7.6 mg/dL (8.5-10.1) Total Bilirubin 0.6 mg/dL (0.2-1.0) Aspartate Amino Transf (AST/SGOT) 38 U/L (15-37) Alanine Aminotransferase (ALT/SGPT) 22 U/L (16-63) Alkaline Phosphatase 84 U/L (46-116) Total Protein 5.7 g/dL (6.4-8.2) Albumin 1.5 g/dL (3.4-5.0) Albumin/Globulin Ratio 0.4 (1.0-1.7) Assessment and Plan Assessmemt and Plan Problems Medical Problems: (1) Hyperglycemia Status: Acute Comment Review of Relevant I have reviewed the following items hiren (where applicable) has been applied. Labs Laboratory Tests Test 04/01/20 17:39 04/01/20 20:07 04/02/20 05:15 04/02/20 08:25 Glucose (Fingerstick) 308 mg/dL (70-99) 374 mg/dL (70-99) White Blood Count 13.1 x10^3/uL (4.0-11.0) Red Blood Count 4.52 x10^6/uL (4.30-5.70) Hemoglobin 13.2 g/dL (13.0-17.5) Hematocrit 39.4 % (39.0-53.0) Mean Corpuscular Volume 87 fL (79-100) Mean Corpuscular Hemoglobin 29 pg (25-35) Mean Corpuscular Hemoglobin Concent 34 g/dL (31-37) Red Cell Distribution Width 13.8 % (11.5-14.5) Platelet Count 348 x10^3/uL (140-400) Neutrophils (%) (Auto) 89 % (31-73) Lymphocytes (%) (Auto) 4 % (24-48) Monocytes (%) (Auto) 7 % (0-9) Eosinophils (%) (Auto) 0 % (0-3) Basophils (%) (Auto) 0 % (0-3) Neutrophils # (Auto) 11.7 x10^3/uL (1.8-7.7) Lymphocytes # (Auto) 0.5 x10^3/uL (1.0-4.8) Monocytes # (Auto) 0.9 x10^3/uL (0.0-1.1) Eosinophils # (Auto) 0.0 x10^3/uL (0.0-0.7) Basophils # (Auto) 0.0 x10^3/uL (0.0-0.2) Sodium Level 133 mmol/L (136-145) Potassium Level 3.8 mmol/L (3.5-5.1) Chloride Level 97 mmol/L (98-107) Carbon Dioxide Level 29 mmol/L (21-32) Anion Gap 7 (6-14) Blood Urea Nitrogen 23 mg/dL (8-26) Creatinine 1.1 mg/dL (0.7-1.3) Estimated GFR (Cockcroft-Gault) 68.1 BUN/Creatinine Ratio 21 (6-20) Glucose Level 311 mg/dL (70-99) Calcium Level 7.7 mg/dL (8.5-10.1) Total Bilirubin 0.6 mg/dL (0.2-1.0) Aspartate Amino Transf (AST/SGOT) 24 U/L (15-37) Alanine Aminotransferase (ALT/SGPT) 27 U/L (16-63) Alkaline Phosphatase 106 U/L (46-116) Total Protein 6.5 g/dL (6.4-8.2) Albumin 1.8 g/dL (3.4-5.0) Albumin/Globulin Ratio 0.4 (1.0-1.7) O2 Saturation 97 % (92-99) Arterial Blood pH 7.50 (7.35-7.45) Arterial Blood pCO2 at Patient Temp 35 mmHg (35-46) Arterial Blood pO2 at Patient Temp 94 mmHg (65-108) Arterial Blood HCO3 27 mmol/L (21-28) Arterial Blood Base Excess 4 mmol/L (-3-3) FiO2 100 Test 04/02/20 08:42 04/02/20 11:59 04/02/20 17:27 04/02/20 20:37 Glucose (Fingerstick) 288 mg/dL (70-99) 352 mg/dL (70-99) 316 mg/dL (70-99) 214 mg/dL (70-99) Test 04/03/20 09:30 04/03/20 12:40 O2 Saturation 89 % (92-99) Arterial Blood pH 7.48 (7.35-7.45) Arterial Blood pCO2 at Patient Temp 32 mmHg (35-46) Arterial Blood pO2 at Patient Temp 54 mmHg (65-108) Arterial Blood HCO3 24 mmol/L (21-28) Arterial Blood Base Excess 1 mmol/L (-3-3) FiO2 90 White Blood Count 11.5 x10^3/uL (4.0-11.0) Red Blood Count 4.04 x10^6/uL (4.30-5.70) Hemoglobin 12.0 g/dL (13.0-17.5) Hematocrit 34.8 % (39.0-53.0) Mean Corpuscular Volume 86 fL (79-100) Mean Corpuscular Hemoglobin 30 pg (25-35) Mean Corpuscular Hemoglobin Concent 35 g/dL (31-37) Red Cell Distribution Width 13.4 % (11.5-14.5) Platelet Count 162 x10^3/uL (140-400) Neutrophils (%) (Auto) 93 % (31-73) Lymphocytes (%) (Auto) 2 % (24-48) Monocytes (%) (Auto) 5 % (0-9) Eosinophils (%) (Auto) 0 % (0-3) Basophils (%) (Auto) 0 % (0-3) Neutrophils # (Auto) 10.7 x10^3/uL (1.8-7.7) Lymphocytes # (Auto) 0.2 x10^3/uL (1.0-4.8) Monocytes # (Auto) 0.5 x10^3/uL (0.0-1.1) Eosinophils # (Auto) 0.0 x10^3/uL (0.0-0.7) Basophils # (Auto) 0.0 x10^3/uL (0.0-0.2) Sodium Level 135 mmol/L (136-145) Potassium Level 4.2 mmol/L (3.5-5.1) Chloride Level 102 mmol/L (98-107) Carbon Dioxide Level 25 mmol/L (21-32) Anion Gap 8 (6-14) Blood Urea Nitrogen 21 mg/dL (8-26) Creatinine 0.9 mg/dL (0.7-1.3) Estimated GFR (Cockcroft-Gault) 85.8 BUN/Creatinine Ratio 23 (6-20) Glucose Level 170 mg/dL (70-99) Calcium Level 7.6 mg/dL (8.5-10.1) Total Bilirubin 0.6 mg/dL (0.2-1.0) Aspartate Amino Transf (AST/SGOT) 38 U/L (15-37) Alanine Aminotransferase (ALT/SGPT) 22 U/L (16-63) Alkaline Phosphatase 84 U/L (46-116) Total Protein 5.7 g/dL (6.4-8.2) Albumin 1.5 g/dL (3.4-5.0) Albumin/Globulin Ratio 0.4 (1.0-1.7) Laboratory Tests Test 04/02/20 17:27 04/02/20 20:37 04/03/20 09:30 04/03/20 12:40 Glucose (Fingerstick) 316 mg/dL (70-99) 214 mg/dL (70-99) O2 Saturation 89 % (92-99) Arterial Blood pH 7.48 (7.35-7.45) Arterial Blood pCO2 at Patient Temp 32 mmHg (35-46) Arterial Blood pO2 at Patient Temp 54 mmHg (65-108) Arterial Blood HCO3 24 mmol/L (21-28) Arterial Blood Base Excess 1 mmol/L (-3-3) FiO2 90 White Blood Count 11.5 x10^3/uL (4.0-11.0) Red Blood Count 4.04 x10^6/uL (4.30-5.70) Hemoglobin 12.0 g/dL (13.0-17.5) Hematocrit 34.8 % (39.0-53.0) Mean Corpuscular Volume 86 fL (79-100) Mean Corpuscular Hemoglobin 30 pg (25-35) Mean Corpuscular Hemoglobin Concent 35 g/dL (31-37) Red Cell Distribution Width 13.4 % (11.5-14.5) Platelet Count 162 x10^3/uL (140-400) Neutrophils (%) (Auto) 93 % (31-73) Lymphocytes (%) (Auto) 2 % (24-48) Monocytes (%) (Auto) 5 % (0-9) Eosinophils (%) (Auto) 0 % (0-3) Basophils (%) (Auto) 0 % (0-3) Neutrophils # (Auto) 10.7 x10^3/uL (1.8-7.7) Lymphocytes # (Auto) 0.2 x10^3/uL (1.0-4.8) Monocytes # (Auto) 0.5 x10^3/uL (0.0-1.1) Eosinophils # (Auto) 0.0 x10^3/uL (0.0-0.7) Basophils # (Auto) 0.0 x10^3/uL (0.0-0.2) Sodium Level 135 mmol/L (136-145) Potassium Level 4.2 mmol/L (3.5-5.1) Chloride Level 102 mmol/L (98-107) Carbon Dioxide Level 25 mmol/L (21-32) Anion Gap 8 (6-14) Blood Urea Nitrogen 21 mg/dL (8-26) Creatinine 0.9 mg/dL (0.7-1.3) Estimated GFR (Cockcroft-Gault) 85.8 BUN/Creatinine Ratio 23 (6-20) Glucose Level 170 mg/dL (70-99) Calcium Level 7.6 mg/dL (8.5-10.1) Total Bilirubin 0.6 mg/dL (0.2-1.0) Aspartate Amino Transf (AST/SGOT) 38 U/L (15-37) Alanine Aminotransferase (ALT/SGPT) 22 U/L (16-63) Alkaline Phosphatase 84 U/L (46-116) Total Protein 5.7 g/dL (6.4-8.2) Albumin 1.5 g/dL (3.4-5.0) Albumin/Globulin Ratio 0.4 (1.0-1.7) Microbiology 03/31/20 Blood Culture - Preliminary, Resulted NO GROWTH AFTER 2 DAYS Medications Current Medications Sterile Water (WATER for RESP) 1,000 ml CONT PRN INH VIA VAPOTHERM DEVICE Last administered on 04/02/20at 20:00; Start 03/31/20 at 17:45 Dexamethasone Sodium Phosphate (Decadron) 10 mg 1X ONCE IV Last administered on 03/31/20at 18:56; Start 03/31/20 at 18:30; Stop 03/31/20 at 18:31; Status DC Azithromycin 250 ml @ 250 mls/hr 1X ONCE IV Last administered on 03/31/20at 19:03; Start 03/31/20 at 18:30; Stop 03/31/20 at 19:29; Status DC Ceftriaxone Sodium (Rocephin) 1 gm 1X ONCE IVP Last administered on 03/31/20at 18:59; Start 03/31/20 at 18:30; Stop 03/31/20 at 18:31; Status DC Insulin Glargine (Lantus Syringe) 10 unit QHS SQ ; Start 03/31/20 at 21:00; Stop 03/31/20 at 23:03; Status DC Insulin Human Lispro (HumaLOG) 0-9 UNITS TIDWMEALS SQ ; Start 04/01/20 at 08:00; Stop 03/31/20 at 23:03; Status DC Dextrose (Dextrose 50%-Water Syringe) 12.5 gm PRN Q15MIN PRN IV SEE COMMENTS; Start 03/31/20 at 19:15 Ondansetron HCl (Zofran) 4 mg PRN Q4HRS PRN IV NAUSEA/VOMITING; Start 03/31/20 at 19:15 Zolpidem Tartrate (Ambien) 5 mg PRN QHS PRN PO INSOMNIA Last administered on 04/02/20at 20:50; Start 03/31/20 at 19:15 Acetaminophen (Tylenol) 650 mg PRN Q4HRS PRN PO TEMP OVER 100.4F OR MILD PAIN; Start 03/31/20 at 19:15; Stop 04/01/20 at 14:27; Status DC Enoxaparin Sodium (Lovenox 40mg Syringe) 40 mg Q24H SQ Last administered on 04/02/20at 20:50; Start 03/31/20 at 21:00; Stop 04/03/20 at 10:04; Status DC Dexamethasone Sodium Phosphate (Decadron) 4 mg DAILY IVP Last administered on 04/03/20at 08:48; Start 04/01/20 at 09:00; Stop 04/03/20 at 10:06; Status DC Zinc Sulfate (Orazinc) 220 mg DAILY PO Last administered on 04/02/20at 07:53; Start 04/01/20 at 09:00 Thiamine Mononitrate (Vitamin B-1) 100 mg DAILY PO Last administered on 04/02/20at 07:53; Start 04/01/20 at 09:00 Guaifenesin (Robitussin Dm) 10 ml PRN Q6HRS PRN PO COUGH; Start 03/31/20 at 19:15 Doxycycline Hyclate 100 mg/ Dextrose 100 ml @ 50 mls/hr BID IV Last administered on 04/03/20at 08:47; Start 03/31/20 at 21:00 Ceftriaxone Sodium (Rocephin) 1 gm DAILY IVP Last administered on 04/03/20at 08:47; Start 04/01/20 at 09:00 Ondansetron HCl (Zofran) 4 mg PRN Q8HRS PRN IV NAUSEA/VOMITING; Start 03/31/20 at 20:30; Stop 04/01/20 at 14:28; Status DC Morphine Sulfate (Morphine Sulfate) 4 mg PRN Q2HR PRN IV PAIN; Start 03/31/20 at 20:30; Stop 04/01/20 at 20:29; Status DC Acetaminophen (Tylenol) 650 mg PRN Q4HRS PRN PO FEVER > 100.3'F; Start 03/31/20 at 20:30; Stop 03/31/20 at 23:03; Status DC Insulin Human Lispro (HumaLOG) 0-7 UNITS TIDWMEALS SQ ; Start 04/01/20 at 08:00; Stop 03/31/20 at 23:03; Status DC Dextrose (Dextrose 50%-Water Syringe) 12.5 gm PRN Q15MIN PRN IV SEE COMMENTS; Start 03/31/20 at 20:30; Stop 04/01/20 at 14:28; Status DC Lisinopril (Prinivil) 10 mg DAILY PO Last administered on 04/01/20at 08:21; Start 04/01/20 at 09:00 Metoprolol Tartrate (Lopressor Vial) 5 mg PRN Q6HRS PRN IVP HYPERTENSION; Start 03/31/20 at 22:45 Amino Acids/ Glycerin/ Electrolytes 1,000 ml @ 80 mls/hr [id number] IV Last admi nistered on 04/03/20at 10:58; Start 03/31/20 at 23:00 Insulin Glargine (Lantus Syringe) 20 unit QHS SQ Last administered on 04/01/20at 20:30; Start 03/31/20 at 23:15; Stop 04/02/20 at 08:52; Status DC Insulin Human Lispro (HumaLOG) 0-9 UNITS TIDWMEALHC SQ Last administered on 04/02/20at 20:52; Start 04/01/20 at 08:00 Acetaminophen (Tylenol) 650 mg PRN Q6HRS PRN PO FEVER > 100.3'F Last administered on 04/03/20at 05:13; Start 03/31/20 at 23:00 Insulin Human Lispro (HumaLOG) 5 units TIDWMEALS SQ Last administered on 04/01/20at 17:00; Start 04/01/20 at 08:00; Stop 04/02/20 at 08:52; Status DC Insulin Human Lispro (HumaLOG) 16 units 1X ONCE SQ Last administered on 03/31/20at 23:23; Start 03/31/20 at 23:15; Stop 03/31/20 at 23:16; Status DC Sodium Chloride 1,000 ml @ 75 mls/hr [id number] IV Last administered on 04/02/20at 20:54; Start 04/01/20 at 19:00 Ascorbic Acid (Vitamin C) 1,000 mg DAILY PO Last administered on 04/02/20at 12:05; Start 04/02/20 at 09:00 Ergocalciferol (Vitamin D2) 50,000 unit 1X ONCE PO Last administered on 04/02/20at 12:05; Start 04/02/20 at 09:00; Stop 04/02/20 at 09:01; Status DC Insulin Glargine (Lantus Syringe) 25 unit BID SQ Last administered on 04/03/20at 08:59; Start 04/02/20 at 09:30 Insulin Human Lispro (HumaLOG) 15 units TIDWMEALS SQ Last administered on 04/03/20at 12:31; Start 04/02/20 at 09:00 Albuterol Sulfate (Ventolin Hfa) 1 puff PRN Q6HRS PRN INH SHORTNESS OF BREATH; Start 04/02/20 at 12:00 Lorazepam (Ativan Inj) 1 mg PRN Q4HRS PRN IVP ANXIETY / AGITATION Last administered on 04/03/20at 05:37; Start 04/03/20 at 05:30 Enoxaparin Sodium (Lovenox 40mg Syringe) 40 mg BID SQ Last administered on 04/03/20at 10:50; Start 04/03/20 at 10:15 Dexamethasone Sodium Phosphate (Decadron) 4 mg BID IVP ; Start 04/03/20 at 21:00 Active Scripts Active Comfort 5-325 Tablet (Acetaminophen/Hydrocodone Bitart) 1 Each Tablet 1 Tab PO PRN Q6HRS PRN Lisinopril 10 Mg Tablet 1 Tab PO DAILY Bactrim Ds Tablet (Sulfamethoxazole/Trimethoprim) 1 Each Tablet 1 Tab PO BID 10 Days Doxycycline Hyclate 100 Mg Capsule 1 Cap PO BID Diflucan (Fluconazole) 200 Mg Tablet 1 Tab PO DAILY Clotrimazole 15 Gm Cream..g. 1 [place] TP TID Comfort 5-325 Tablet (Acetaminophen/Hydrocodone Bitart) 1 Each Tablet 1 Tab PO Q6HRS Naproxen 500 Mg Tablet 1 Tab PO BID Levaquin (Levofloxacin) 500 Mg Tablet 1 Tab PO DAILY Vitals/I & O Vital Sign - Last 24 Hours 04/02/20 04/02/20 04/02/20 04/02/20 15:00 15:55 16:00 16:00 Pulse 72 76 Resp 22 B/P (MAP) 110/50 (70) 131/68 (89) Pulse Ox 92 93 92 O2 Delivery High Flow Nasal Cannula vapotherm Nasal Cannula High Flow Nasal Cannula O2 Flow Rate 40.0 40.0 40.0 40.0 04/02/20 04/02/20 04/02/20 04/02/20 17:00 18:00 19:00 20:00 Temp 98.3 98.3 Pulse 80 88 82 Resp 24 B/P (MAP) 129/67 (87) 125/64 (84) Pulse Ox 91 92 91 O2 Delivery High Flow Nasal Cannula High Flow Nasal Cannula Nasal Cannula O2 Flow Rate 40.0 40.0 40.0 40.0 04/02/20 04/02/20 04/02/20 04/02/20 20:00 20:44 21:00 22:04 Temp 98.0 98.0 Pulse 81 84 90 Resp 24 24 B/P (MAP) 135/72 (93) 129/67 (87) 133/64 (87) Pulse Ox 89 96 90 90 O2 Delivery High Flow Nasal Cannula vapotherm High Flow Nasal Cannula High Flow Nasal Cannula O2 Flow Rate 40.0 40.0 40.0 40.0 04/02/20 04/03/20 04/03/20 04/03/20 23:00 00:00 00:00 00:00 Temp 99.7 99.7 Pulse 98 92 Resp 30 39 B/P (MAP) 176/79 (111) 151/71 (97) Pulse Ox 83 91 92 O2 Delivery High Flow Nasal Cannula BiPAP/CPAP BiPAP/CPAP Bi-pap O2 Flow Rate 40.0 04/03/20 04/03/20 04/03/20 04/03/20 01:00 02:00 03:00 04:00 Pulse 110 110 115 Resp 28 B/P (MAP) 159/72 (101) 149/76 (100) 152/73 (99) Pulse Ox 85 93 93 O2 Delivery High Flow Nasal Cannula BiPAP/CPAP BiPAP/CPAP Bi-pap O2 Flow Rate 40.0 04/03/20 04/03/20 04/03/20 04/03/20 04:00 05:00 05:27 06:00 Temp 103.7 103.7 Pulse 122 134 102 Resp 36 44 24 B/P (MAP) 176/83 (114) 84/49 (61) Pulse Ox 96 76 95 91 O2 Delivery BiPAP/CPAP BiPAP/CPAP BiPAP/CPAP 04/03/20 04/03/20 04/03/20 04/03/20 07:00 08:00 08:00 08:10 Temp 99.1 99.1 Pulse 92 92 Resp 30 32 B/P (MAP) 117/80 (92) 94/49 (64) Pulse Ox 91 93 91 O2 Delivery BiPAP/CPAP BiPAP/CPAP Bi-pap BiPAP/CPAP 04/03/20 04/03/20 04/03/20 04/03/20 09:00 09:00 10:00 11:00 Temp 98.8 98.8 Pulse 93 84 84 80 Resp 26 22 22 B/P (MAP) 103/52 103/52 (69) 116/64 (81) 113/60 (77) Pulse Ox 90 93 93 O2 Delivery BiPAP/CPAP BiPAP/CPAP BiPAP/CPAP 04/03/20 04/03/20 04/03/20 04/03/20 12:00 12:00 12:20 13:00 Pulse 83 83 Resp 22 22 B/P (MAP) 113/60 (77) 113/60 (77) Pulse Ox 95 94 93 O2 Delivery Bi-pap BiPAP/CPAP BiPAP/CPAP BiPAP/CPAP O2 Flow Rate 40.0 Intake and Output 04/02/20 04/02/20 04/03/20 15:00 23:00 07:00 Intake Total 700 ml 1570 ml 420 ml Output Total 500 ml 300 ml 100 ml Balance 200 ml 1270 ml 320 ml Justicifation of Admission Dx: Justifications for Admission: Justification of Admission Dx: Yes (hypoxia) ROSA HENDRICKS MD Apr 03, 2020 14:54
[2020-04-03] MEDS: IV NORMAL SALINE 1000ML BAG 1,000 ML IV SCH (15:58)
[2020-04-04] VITALS (24 sets, daily range): BP systolic 115–143; BP diastolic 56–96
--- NOTE | 2020-04-04 04:00 | NUR ---
At 0300, patient confused, attempting to get out of bed saying he must use the restroom. Was easily able to reorient and remind him he has a varma. Patient then requested a break from the biapap. Vapotherm 40L/100% placed instead for about 20mins, O2 saturations ranged from 83%-89%. Patient agreeable to put bipap back on after having this break and drinking water, understands importance of bipap. Now resting comfortably.
[2020-04-04 04:46] LABS: BASO % 0 % (0-3); EOS % 0 % (0-3); HEMATOCRIT 33.5 % (39.0-53.0); HEMOGLOBIN 11.6 g/dL (13.0-17.5); LYMPH # 0.2 x10^3/uL (1.0-4.8); LYMPH % 2 % (24-48); MEAN CORPUSCULAR HEMOGLOBIN 30 pg (25-35); MEAN CORPUSCULAR HGB CONC 35 g/dL (31-37); MEAN CORPUSCULAR VOLUME 86 fL (79-100); MONO # 0.4 x10^3/uL (0.0-1.1); MONO % 5 % (0-9); NEUT # 7.1 x10^3/uL (1.8-7.7); NEUT % 93 % (31-73); PLATELET COUNT 167 x10^3/uL (140-400); RED BLOOD COUNT 3.87 x10^6/uL (4.30-5.70); WHITE BLOOD COUNT 7.7 x10^3/uL (4.0-11.0)
[2020-04-04 05:04] LABS: CALCIUM 7.7 mg/dL (8.5-10.1); CREATININE 0.8 mg/dL (0.7-1.3); GFR 98.3; POTASSIUM 4.4 mmol/L (3.5-5.1)
[2020-04-04 08:33] LABS: BASE EXCESS ABG 0 mmol/L (-3-3); HCO3 ABG 23 mmol/L (21-28); PCO2 ABG 32 mmHg (35-46); PO2 ABG 59 mmHg (65-108); SAT O2 ABG 91 % (92-99)
[2020-04-04 08:34] LABS: FIO2 ABG 90
[2020-04-04] MEDS: cefTRIAXone IV Push 1 GM VIAL. IVP SCH (09:00)
[2020-04-04] MEDS: DOXYCYCLINE HYCLATE 100 MG in IV DEXTROSE 5% 100ML 100 ML IV SCH ×2 (09:13→20:56)
[2020-04-04] MEDS: ENOXAPARIN 40 MG/0.4 ML SYRINGE. SQ SCH ×2 (09:15→20:53)
[2020-04-04] MEDS: THIAMINE 100 MG TABLET. PO SCH (09:15)
[2020-04-04] MEDS: ZINC SULFATE 220 MG CAPSULE. PO SCH (09:15)
[2020-04-04] MEDS: LISINOPRIL 10 MG TABLET PO SCH (09:16)
[2020-04-04] MEDS: DEXAMETHASONE SOD PHOS 4 MG/ML VIAL IVP SCH ×2 (09:16→20:55)
[2020-04-04] MEDS: ASCORBIC ACID 1,000 MG TABLET PO SCH (09:28)
[2020-04-04] MEDS: INSULIN GLARGINE SYRINGE. SQ SCH ×2 (09:29→20:55)
[2020-04-04] MEDS: INSULIN LISPRO 300 UNITS/3 ML VIAL. SQ SCH ×7 (10:03→20:53)
[2020-04-04] MEDS: AMINO AC 3%/ELECTROLYTE/GLYCER 1,000 ML IV SCH ×2 (11:46→23:48)
[2020-04-04] MEDS: IV NORMAL SALINE 1000ML BAG 1,000 ML IV SCH ×2 (11:50→12:24)
--- NOTE | 2020-04-04 12:25 | PDOC ---
PULMONARY PROGRESS NOTES DATE: 04/04/20 TIME: 12:23 Subjective Patient is on 100% nonrebreather and 100% Vapotherm Wore BiPAP overnight at 90% Afebrile overnight No other concerns from nursing at this time Vitals Vital Signs Date Time Temp Pulse Resp B/P (MAP) Pulse Ox O2 Delivery O2 Flow Rate FiO2 04/04/20 12:00 Bi-pap 04/04/20 11:20 92 04/04/20 09:16 124/67 04/04/20 06:00 86 22 04/04/20 04:00 99.4 99.4 04/03/20 12:00 40.0 Comments Intermittent use of BiPAP/Vapotherm with nonrebreather no distress nc at rrr no accessory muscle use no rash Labs Laboratory Tests Test 04/02/20 17:27 04/02/20 20:37 04/03/20 08:19 04/03/20 09:30 Glucose (Fingerstick) 316 mg/dL (70-99) 214 mg/dL (70-99) 118 mg/dL (70-99) O2 Saturation 89 % (92-99) Arterial Blood pH 7.48 (7.35-7.45) Arterial Blood pCO2 at Patient Temp 32 mmHg (35-46) Arterial Blood pO2 at Patient Temp 54 mmHg (65-108) Arterial Blood HCO3 24 mmol/L (21-28) Arterial Blood Base Excess 1 mmol/L (-3-3) FiO2 90 Test 04/03/20 12:04 04/03/20 12:40 04/03/20 17:22 04/03/20 20:42 Glucose (Fingerstick) 151 mg/dL (70-99) 122 mg/dL (70-99) 124 mg/dL (70-99) White Blood Count 11.5 x10^3/uL (4.0-11.0) Red Blood Count 4.04 x10^6/uL (4.30-5.70) Hemoglobin 12.0 g/dL (13.0-17.5) Hematocrit 34.8 % (39.0-53.0) Mean Corpuscular Volume 86 fL (79-100) Mean Corpuscular Hemoglobin 30 pg (25-35) Mean Corpuscular Hemoglobin Concent 35 g/dL (31-37) Red Cell Distribution Width 13.4 % (11.5-14.5) Platelet Count 162 x10^3/uL (140-400) Neutrophils (%) (Auto) 93 % (31-73) Lymphocytes (%) (Auto) 2 % (24-48) Monocytes (%) (Auto) 5 % (0-9) Eosinophils (%) (Auto) 0 % (0-3) Basophils (%) (Auto) 0 % (0-3) Neutrophils # (Auto) 10.7 x10^3/uL (1.8-7.7) Lymphocytes # (Auto) 0.2 x10^3/uL (1.0-4.8) Monocytes # (Auto) 0.5 x10^3/uL (0.0-1.1) Eosinophils # (Auto) 0.0 x10^3/uL (0.0-0.7) Basophils # (Auto) 0.0 x10^3/uL (0.0-0.2) Sodium Level 135 mmol/L (136-145) Potassium Level 4.2 mmol/L (3.5-5.1) Chloride Level 102 mmol/L (98-107) Carbon Dioxide Level 25 mmol/L (21-32) Anion Gap 8 (6-14) Blood Urea Nitrogen 21 mg/dL (8-26) Creatinine 0.9 mg/dL (0.7-1.3) Estimated GFR (Cockcroft-Gault) 85.8 BUN/Creatinine Ratio 23 (6-20) Glucose Level 170 mg/dL (70-99) Calcium Level 7.6 mg/dL (8.5-10.1) Total Bilirubin 0.6 mg/dL (0.2-1.0) Aspartate Amino Transf (AST/SGOT) 38 U/L (15-37) Alanine Aminotransferase (ALT/SGPT) 22 U/L (16-63) Alkaline Phosphatase 84 U/L (46-116) Total Protein 5.7 g/dL (6.4-8.2) Albumin 1.5 g/dL (3.4-5.0) Albumin/Globulin Ratio 0.4 (1.0-1.7) Test 04/04/20 04:15 04/04/20 08:31 04/04/20 09:38 White Blood Count 7.7 x10^3/uL (4.0-11.0) Red Blood Count 3.87 x10^6/uL (4.30-5.70) Hemoglobin 11.6 g/dL (13.0-17.5) Hematocrit 33.5 % (39.0-53.0) Mean Corpuscular Volume 86 fL (79-100) Mean Corpuscular Hemoglobin 30 pg (25-35) Mean Corpuscular Hemoglobin Concent 35 g/dL (31-37) Red Cell Distribution Width 14.0 % (11.5-14.5) Platelet Count 167 x10^3/uL (140-400) Neutrophils (%) (Auto) 93 % (31-73) Lymphocytes (%) (Auto) 2 % (24-48) Monocytes (%) (Auto) 5 % (0-9) Eosinophils (%) (Auto) 0 % (0-3) Basophils (%) (Auto) 0 % (0-3) Neutrophils # (Auto) 7.1 x10^3/uL (1.8-7.7) Lymphocytes # (Auto) 0.2 x10^3/uL (1.0-4.8) Monocytes # (Auto) 0.4 x10^3/uL (0.0-1.1) Eosinophils # (Auto) 0.0 x10^3/uL (0.0-0.7) Basophils # (Auto) 0.0 x10^3/uL (0.0-0.2) Sodium Level 133 mmol/L (136-145) Potassium Level 4.4 mmol/L (3.5-5.1) Chloride Level 102 mmol/L (98-107) Carbon Dioxide Level 22 mmol/L (21-32) Anion Gap 9 (6-14) Blood Urea Nitrogen 23 mg/dL (8-26) Creatinine 0.8 mg/dL (0.7-1.3) Estimated GFR (Cockcroft-Gault) 98.3 Glucose Level 138 mg/dL (70-99) Calcium Level 7.7 mg/dL (8.5-10.1) O2 Saturation 91 % (92-99) Arterial Blood pH 7.47 (7.35-7.45) Arterial Blood pCO2 at Patient Temp 32 mmHg (35-46) Arterial Blood pO2 at Patient Temp 59 mmHg (65-108) Arterial Blood HCO3 23 mmol/L (21-28) Arterial Blood Base Excess 0 mmol/L (-3-3) FiO2 90 Glucose (Fingerstick) 191 mg/dL (70-99) Laboratory Tests Test 04/03/20 12:40 04/03/20 17:22 04/03/20 20:42 04/04/20 04:15 White Blood Count 11.5 x10^3/uL (4.0-11.0) 7.7 x10^3/uL (4.0-11.0) Red Blood Count 4.04 x10^6/uL (4.30-5.70) 3.87 x10^6/uL (4.30-5.70) Hemoglobin 12.0 g/dL (13.0-17.5) 11.6 g/dL (13.0-17.5) Hematocrit 34.8 % (39.0-53.0) 33.5 % (39.0-53.0) Mean Corpuscular Volume 86 fL (79-100) 86 fL (79-100) Mean Corpuscular Hemoglobin 30 pg (25-35) 30 pg (25-35) Mean Corpuscular Hemoglobin Concent 35 g/dL (31-37) 35 g/dL (31-37) Red Cell Distribution Width 13.4 % (11.5-14.5) 14.0 % (11.5-14.5) Platelet Count 162 x10^3/uL (140-400) 167 x10^3/uL (140-400) Neutrophils (%) (Auto) 93 % (31-73) 93 % (31-73) Lymphocytes (%) (Auto) 2 % (24-48) 2 % (24-48) Monocytes (%) (Auto) 5 % (0-9) 5 % (0-9) Eosinophils (%) (Auto) 0 % (0-3) 0 % (0-3) Basophils (%) (Auto) 0 % (0-3) 0 % (0-3) Neutrophils # (Auto) 10.7 x10^3/uL (1.8-7.7) 7.1 x10^3/uL (1.8-7.7) Lymphocytes # (Auto) 0.2 x10^3/uL (1.0-4.8) 0.2 x10^3/uL (1.0-4.8) Monocytes # (Auto) 0.5 x10^3/uL (0.0-1.1) 0.4 x10^3/uL (0.0-1.1) Eosinophils # (Auto) 0.0 x10^3/uL (0.0-0.7) 0.0 x10^3/uL (0.0-0.7) Basophils # (Auto) 0.0 x10^3/uL (0.0-0.2) 0.0 x10^3/uL (0.0-0.2) Sodium Level 135 mmol/L (136-145) 133 mmol/L (136-145) Potassium Level 4.2 mmol/L (3.5-5.1) 4.4 mmol/L (3.5-5.1) Chloride Level 102 mmol/L (98-107) 102 mmol/L (98-107) Carbon Dioxide Level 25 mmol/L (21-32) 22 mmol/L (21-32) Anion Gap 8 (6-14) 9 (6-14) Blood Urea Nitrogen 21 mg/dL (8-26) 23 mg/dL (8-26) Creatinine 0.9 mg/dL (0.7-1.3) 0.8 mg/dL (0.7-1.3) Estimated GFR (Cockcroft-Gault) 85.8 98.3 BUN/Creatinine Ratio 23 (6-20) Glucose Level 170 mg/dL (70-99) 138 mg/dL (70-99) Calcium Level 7.6 mg/dL (8.5-10.1) 7.7 mg/dL (8.5-10.1) Total Bilirubin 0.6 mg/dL (0.2-1.0) Aspartate Amino Transf (AST/SGOT) 38 U/L (15-37) Alanine Aminotransferase (ALT/SGPT) 22 U/L (16-63) Alkaline Phosphatase 84 U/L (46-116) Total Protein 5.7 g/dL (6.4-8.2) Albumin 1.5 g/dL (3.4-5.0) Albumin/Globulin Ratio 0.4 (1.0-1.7) Glucose (Fingerstick) 122 mg/dL (70-99) 124 mg/dL (70-99) Test 04/04/20 08:31 04/04/20 09:38 O2 Saturation 91 % (92-99) Arterial Blood pH 7.47 (7.35-7.45) Arterial Blood pCO2 at Patient Temp 32 mmHg (35-46) Arterial Blood pO2 at Patient Temp 59 mmHg (65-108) Arterial Blood HCO3 23 mmol/L (21-28) Arterial Blood Base Excess 0 mmol/L (-3-3) FiO2 90 Glucose (Fingerstick) 191 mg/dL (70-99) Medications Active Scripts Medications Dose Route/Sig Max Daily Dose Days Date Category Onward 5-325 Tablet (Acetaminophen/Hydrocodone Bitart) 1 Each Tablet 1 Tab PO PRN Q6HRS PRN 12/27/18 Rx Lisinopril 10 Mg Tablet 1 Tab PO DAILY 12/27/18 Rx Bactrim Ds Tablet (Sulfamethoxazole/Trimethoprim) 1 Each Tablet 1 Tab PO BID 10 12/27/18 Rx Doxycycline Hyclate 100 Mg Capsule 1 Cap PO BID 12/22/18 Rx Diflucan (Fluconazole) 200 Mg Tablet 1 Tab PO DAILY 12/22/18 Rx Clotrimazole 15 Gm Cream..g. 1 [place] TP TID 12/22/18 Rx Onward 5-325 Tablet (Acetaminophen/Hydrocodone Bitart) 1 Each Tablet 1 Tab PO Q6HRS 12/11/18 Rx Naproxen 500 Mg Tablet 1 Tab PO BID 12/11/18 Rx Levaquin (Levofloxacin) 500 Mg Tablet 1 Tab PO DAILY 12/11/18 Rx Impression . IMPRESSION: 1. Acute hypoxic respiratory failure secondary to COVID-19 viral pneumonia. 2. Abnormal chest x-ray suggestive of viral pneumonia. 3. No significant tobacco use. Plan . RECOMMENDATIONS: Continue supplemental oxygen, currently on 100% nonrebreather with an additional 100% Vapotherm 40 L. Monitor status closely for need for intubation. Place patient back on BiPAP, 100% Follow chest x-ray and ABG Continue dexamethasone with taper for full 10-day course Continue IV Rocephin and IV doxy DVT/GI prophylaxis Patient is a full code Discussed with RN and RT SHAKA RIOS MD Apr 04, 2020 12:25
--- NOTE | 2020-04-04 14:13 | PDOC ---
[employer] PROGRESS NOTE Date of Service DOS: DATE: 04/04/20 TIME: 14:11 Chief Complaint Chief Complaint Acute respiratory failure with hypoxia - now worse, on BIPAP, intubation risk high for ARDS Sepsis - with increased HR and RR, pneumonia on CXR, empiric antibiotics and IVF Acute encephalopathy - metabolic w/ hypoxia, improving Pneumonia, w/ COVID positive Hyperglycemia - no prior diabetes diagnosis to patient knowledge. will f/u A1c and treat with basal bolus plus insulin regimen Hyponatremia - likely hypovolemic given poor PO intake recently BILL - likely vasomotor nephropathy from above, no prior renal disease noted HTN - previously on lisinopril, will continue and add prn hydralazine Lactic acidosis - acute Severe protein calorie malnutrition - cont the aggresive Steroids. - Isolate forCOVID on BIPAP, consider intubating if mental status gets poor on PPN for nutrition support more confused, cont current History of Present Illness History of Present Illness 04/04/2020 No acute events overnight. Patient T-max of 99.7. Patient is on 100% nonrebreather and 100% Vapotherm. Wore BiPAP overnight at 90%.> 50% time spent in patient chart, labs, and imaging review and in discussion with RN and SW 60 year old male with history of hypertension presented via EMS for shortness of breath. EMS reports patient was picked up at his friend's house after his friend, Brooks, called 911. Was found with O2 saturations 75% on room air. He was put on 5 L of oxygen with improvement to 85%, but continued to desaturate and was placed on facemask O2. Throughout his desaturations he was confused and agitated. With O2 saturations 85% he stood up stating he had to go home and get his money, removed his IVs as well as monitors and started walking to the hallway. He became very short of air. Nursing staff encouraged patient to go back to his room because currently he is very short of breath. He returned to his room. O2 saturations 70% on 12L NCO2, transitioned to vapotherm. He became progressively more alert over the next 30 minutes and was able to give more history and ask for his friend Brooks to be contacted to make tea to bring to the hospital and apologized for his behavior. He reports shortness of breath for roughly 2 days with chills and subjective fevers for 2 days. Denies any chest pain. No recent sick contacts. Loss of appetite. No N/V/D Chest radiograph with interstitial opacities bilaterally WBC 8.9, Hb 13.4, platelets 337, Na 131, K 3.8, BUN 24, Cr 1.2, Glucose 346, Ca 7.6, Lactic acid 2.4, Albumin 2.1, Troponin 0, BNP 254, INR 1.2, TSH 0.967, Procalcitonin 0.42 EKG with sinus tachycardia and leftward axis. No TWI or ST segment changes. No prior EKG available to review. Covid test was ordered. Given Decadron, Rocephin and azithromycin. Admitted to ICU for Vapotherm O2 administration. Vitals/I&O Vitals/I&O: Vital Signs Date Time Temp Pulse Resp B/P (MAP) Pulse Ox O2 Delivery O2 Flow Rate FiO2 04/04/20 12:00 99.1 94 25 118/56 (76) 94 BiPAP/CPAP 99.1 04/03/20 12:00 40.0 I & O 04/03/20 04/03/20 04/04/20 15:00 23:00 07:00 Intake Total 1160 ml 100 ml 1898 ml Output Total 377 ml 535 ml 325 ml Balance 783 ml -435 ml 1573 ml Physical Exam General: Alert, severe distress Heart: Normal S1, Normal S2, Other (tachycardia, no murmur) Abdomen: Normal bowel sounds, Soft, No tenderness, No hepatosplenomegaly, No masses Extremities: No clubbing, No cyanosis, No edema, Normal pulses, No tenderness/swelling Skin: No rashes, No breakdown, No significant lesion Labs Labs: Laboratory Tests Test 04/03/20 17:22 04/03/20 20:42 04/04/20 04:15 04/04/20 08:31 Glucose (Fingerstick) 122 mg/dL (70-99) 124 mg/dL (70-99) White Blood Count 7.7 x10^3/uL (4.0-11.0) Red Blood Count 3.87 x10^6/uL (4.30-5.70) Hemoglobin 11.6 g/dL (13.0-17.5) Hematocrit 33.5 % (39.0-53.0) Mean Corpuscular Volume 86 fL (79-100) Mean Corpuscular Hemoglobin 30 pg (25-35) Mean Corpuscular Hemoglobin Concent 35 g/dL (31-37) Red Cell Distribution Width 14.0 % (11.5-14.5) Platelet Count 167 x10^3/uL (140-400) Neutrophils (%) (Auto) 93 % (31-73) Lymphocytes (%) (Auto) 2 % (24-48) Monocytes (%) (Auto) 5 % (0-9) Eosinophils (%) (Auto) 0 % (0-3) Basophils (%) (Auto) 0 % (0-3) Neutrophils # (Auto) 7.1 x10^3/uL (1.8-7.7) Lymphocytes # (Auto) 0.2 x10^3/uL (1.0-4.8) Monocytes # (Auto) 0.4 x10^3/uL (0.0-1.1) Eosinophils # (Auto) 0.0 x10^3/uL (0.0-0.7) Basophils # (Auto) 0.0 x10^3/uL (0.0-0.2) Sodium Level 133 mmol/L (136-145) Potassium Level 4.4 mmol/L (3.5-5.1) Chloride Level 102 mmol/L (98-107) Carbon Dioxide Level 22 mmol/L (21-32) Anion Gap 9 (6-14) Blood Urea Nitrogen 23 mg/dL (8-26) Creatinine 0.8 mg/dL (0.7-1.3) Estimated GFR (Cockcroft-Gault) 98.3 Glucose Level 138 mg/dL (70-99) Calcium Level 7.7 mg/dL (8.5-10.1) O2 Saturation 91 % (92-99) Arterial Blood pH 7.47 (7.35-7.45) Arterial Blood pCO2 at Patient Temp 32 mmHg (35-46) Arterial Blood pO2 at Patient Temp 59 mmHg (65-108) Arterial Blood HCO3 23 mmol/L (21-28) Arterial Blood Base Excess 0 mmol/L (-3-3) FiO2 90 Test 04/04/20 09:38 Glucose (Fingerstick) 191 mg/dL (70-99) Assessment and Plan Assessmemt and Plan Problems Medical Problems: (1) Hyperglycemia Status: Acute Comment Review of Relevant I have reviewed the following items hiren (where applicable) has been applied. Medications: Current Medications Medications (Trade) Dose Ordered Sig/Cinthya Route PRN Reason Start Time Stop Time Status Last Admin Dose Admin Dexamethasone Sodium Phosphate (Decadron) 4 mg BID IVP 04/03/20 21:00 04/04/20 09:16 Justifications for Admission Other Justification NADINE DANIEL MD Apr 04, 2020 14:13
--- NOTE | 2020-04-04 15:59 | NUR ---
SW following today for discharge planning. Spoke with RN and reviewed chart. Pt remains on Vapotherm and a NRB at 100%. Pt on IV Rocephin and IV Doxy. Pt not medically stable. Pt self-pay.
[2020-04-05] VITALS (15 sets, daily range): BP systolic 118–160; BP diastolic 64–75
[2020-04-05] MEDS: IV NORMAL SALINE 1000ML BAG 1,000 ML IV SCH (02:32)
[2020-04-05] MEDS: INSULIN LISPRO 300 UNITS/3 ML VIAL. SQ SCH ×4 (08:00→11:29)
[2020-04-05 08:09] LABS: BASE EXCESS ABG -3 mmol/L (-3-3); HCO3 ABG 20 mmol/L (21-28); PCO2 ABG 29 mmHg (35-46); PO2 ABG 55 mmHg (65-108); SAT O2 ABG 89 % (92-99)
[2020-04-05 09:18] LABS: FIO2 ABG 100% BIPAP
[2020-04-05] MEDS ORDERED: POLYVINYL ALCOHOL 1.4% OPHTH SOLUTION 15ML BOTTLE. OU PRN (10:00)
[2020-04-05] MEDS: ENOXAPARIN 40 MG/0.4 ML SYRINGE. SQ SCH (10:23)
[2020-04-05] MEDS: DEXAMETHASONE SOD PHOS 4 MG/ML VIAL IVP SCH (10:23)
[2020-04-05] MEDS: cefTRIAXone IV Push 1 GM VIAL. IVP SCH (10:23)
[2020-04-05] MEDS: ZINC SULFATE 220 MG CAPSULE. PO SCH (10:24)
[2020-04-05] MEDS: LISINOPRIL 10 MG TABLET PO SCH (10:24)
[2020-04-05] MEDS: THIAMINE 100 MG TABLET. PO SCH (10:24)
[2020-04-05] MEDS: DOXYCYCLINE HYCLATE 100 MG in IV DEXTROSE 5% 100ML 100 ML IV SCH (10:25)
[2020-04-05] MEDS: ASCORBIC ACID 1,000 MG TABLET PO SCH (10:26)
--- NOTE | 2020-04-05 10:34 | NUR ---
SS following up with discharge planning. SS reviewed pt chart and discussed with pt RN. Pt is currently on the BIPAP at 100%. COVID19 positive. Pt requesting to be DNR/DNI. SS discussed with physician. Referral for inpatient hospice requested. SS phoned and faxed referral to [facility], ; fax [phone]. RNKim, notified. SS will continue to follow for discharge planning.
[2020-04-05] MEDS: INSULIN GLARGINE SYRINGE. SQ SCH (10:43)
--- NOTE | 2020-04-05 11:13 | PDOC ---
[employer] PROGRESS NOTE Date of Service DOS: DATE: 04/05/20 TIME: 11:11 Chief Complaint Chief Complaint Acute respiratory failure with hypoxia - now worse, on BIPAP, intubation risk high for ARDS Sepsis - with increased HR and RR, pneumonia on CXR, empiric antibiotics and IVF Acute encephalopathy - metabolic w/ hypoxia, improving Pneumonia, w/ COVID positive Hyperglycemia - no prior diabetes diagnosis to patient knowledge. will f/u A1c and treat with basal bolus plus insulin regimen Hyponatremia - likely hypovolemic given poor PO intake recently BILL - likely vasomotor nephropathy from above, no prior renal disease noted HTN - previously on lisinopril, will continue and add prn hydralazine Lactic acidosis - acute Severe protein calorie malnutrition - cont the aggresive Steroids. - Isolate forCOVID on BIPAP, consider intubating if mental status gets poor on PPN for nutrition support more confused, cont current History of Present Illness History of Present Illness 04/05/2020 No acute events overnight. Patient is currently on BiPAP 100% saturating 91%. Patient will desat when turned down to 70% while on BiPAP. Extremely short of breath and only able to speak in short sentences while BiPAP. Had long discussion with patient regarding CODE STATUS and quality of life. And end-of-life care. Patient stated that he does not want to do anything heroic and wants to be comfortable. He is tolerating the BiPAP but prefers to be off with the machine and spend more time with his family. I introduced the possible option of hospice care patient agreed that he would rather be comfortable at be with family then to be stuck in the ICU with mild to be on the BiPAP machine. Patient agreed to be DNR code and was willing to consider hospice care.> 50% time spent in patient chart, labs, and imaging review and in discussion with RN and SW 04/04/2020 No acute events overnight. Patient T-max of 99.7. Patient is on 100% nonrebreather and 100% Vapotherm. Wore BiPAP overnight at 90%.> 50% time spent in patient chart, labs, and imaging review and in discussion with RN and SW 60 year old male with history of hypertension presented via EMS for shortness of breath. EMS reports patient was picked up at his friend's house after his friend, Brooks, called 911. Was found with O2 saturations 75% on room air. He was put on 5 L of oxygen with improvement to 85%, but continued to desaturate and was placed on facemask O2. Throughout his desaturations he was confused and agitated. With O2 saturations 85% he stood up stating he had to go home and get his money, removed his IVs as well as monitors and started walking to the hallway. He became very short of air. Nursing staff encouraged patient to go back to his room because currently he is very short of breath. He returned to his room. O2 saturations 70% on 12L NCO2, transitioned to vapotherm. He became progressively more alert over the next 30 minutes and was able to give more history and ask for his friend Brooks to be contacted to make tea to bring to the hospital and apologized for his behavior. He reports shortness of breath for roughly 2 days with chills and subjective fevers for 2 days. Denies any chest pain. No recent sick contacts. Loss of appetite. No N/V/D Chest radiograph with interstitial opacities bilaterally WBC 8.9, Hb 13.4, platelets 337, Na 131, K 3.8, BUN 24, Cr 1.2, Glucose 346, Ca 7.6, Lactic acid 2.4, Albumin 2.1, Troponin 0, BNP 254, INR 1.2, TSH 0.967, Procalcitonin 0.42 EKG with sinus tachycardia and leftward axis. No TWI or ST segment changes. No prior EKG available to review. Covid test was ordered. Given Decadron, Rocephin and azithromycin. Admitted to ICU for Vapotherm O2 administration. Vitals/I&O Vitals/I&O: Vital Signs Date Time Temp Pulse Resp B/P (MAP) Pulse Ox O2 Delivery O2 Flow Rate FiO2 04/05/20 11:00 93 36 156/66 (96) 88 BiPAP/CPAP 04/05/20 08:00 98.8 98.8 04/04/20 23:53 40.0 I & O 04/04/20 04/04/20 04/05/20 15:00 23:00 07:00 Intake Total 200 ml 490 ml 3611 ml Output Total 280 ml 525 ml 475 ml Balance -80 ml -35 ml 3136 ml Physical Exam General: Alert, severe distress Heart: Normal S1, Normal S2, Other (tachycardia, no murmur) Abdomen: Normal bowel sounds, Soft, No tenderness, No hepatosplenomegaly, No masses Extremities: No clubbing, No cyanosis, No edema, Normal pulses, No tenderness/swelling Skin: No rashes, No breakdown, No significant lesion Labs Labs: Laboratory Tests Test 04/04/20 15:15 04/04/20 17:30 04/04/20 20:52 04/05/20 09:00 Glucose (Fingerstick) 243 mg/dL (70-99) 237 mg/dL (70-99) 127 mg/dL (70-99) O2 Saturation 89 % (92-99) Arterial Blood pH 7.46 (7.35-7.45) Arterial Blood pCO2 at Patient Temp 29 mmHg (35-46) Arterial Blood pO2 at Patient Temp 55 mmHg (65-108) Arterial Blood HCO3 20 mmol/L (21-28) Arterial Blood Base Excess -3 mmol/L (-3-3) FiO2 100% bipap Test 04/05/20 10:36 Glucose (Fingerstick) 233 mg/dL (70-99) Assessment and Plan Assessmemt and Plan Problems Medical Problems: (1) Hyperglycemia Status: Acute Comment Review of Relevant I have reviewed the following items hiren (where applicable) has been applied. Justifications for Admission Other Justification NADINE DANIEL MD Apr 05, 2020 11:13
--- NOTE | 2020-04-05 11:19 | PDOC ---
PULMONARY PROGRESS NOTES DATE: 04/05/20 TIME: 11:15 Subjective on BIPAP 100% Afebrile overnight Family considering hospice Vitals Vital Signs Date Time Temp Pulse Resp B/P (MAP) Pulse Ox O2 Delivery O2 Flow Rate FiO2 04/05/20 11:00 93 36 156/66 (96) 88 BiPAP/CPAP 04/05/20 08:00 98.8 98.8 04/04/20 23:53 40.0 Comments BIPAP no distress nc at rrr mild accessory muscle use no rash Labs Laboratory Tests Test 04/03/20 12:04 04/03/20 12:40 04/03/20 17:22 04/03/20 20:42 Glucose (Fingerstick) 151 mg/dL (70-99) 122 mg/dL (70-99) 124 mg/dL (70-99) White Blood Count 11.5 x10^3/uL (4.0-11.0) Red Blood Count 4.04 x10^6/uL (4.30-5.70) Hemoglobin 12.0 g/dL (13.0-17.5) Hematocrit 34.8 % (39.0-53.0) Mean Corpuscular Volume 86 fL (79-100) Mean Corpuscular Hemoglobin 30 pg (25-35) Mean Corpuscular Hemoglobin Concent 35 g/dL (31-37) Red Cell Distribution Width 13.4 % (11.5-14.5) Platelet Count 162 x10^3/uL (140-400) Neutrophils (%) (Auto) 93 % (31-73) Lymphocytes (%) (Auto) 2 % (24-48) Monocytes (%) (Auto) 5 % (0-9) Eosinophils (%) (Auto) 0 % (0-3) Basophils (%) (Auto) 0 % (0-3) Neutrophils # (Auto) 10.7 x10^3/uL (1.8-7.7) Lymphocytes # (Auto) 0.2 x10^3/uL (1.0-4.8) Monocytes # (Auto) 0.5 x10^3/uL (0.0-1.1) Eosinophils # (Auto) 0.0 x10^3/uL (0.0-0.7) Basophils # (Auto) 0.0 x10^3/uL (0.0-0.2) Sodium Level 135 mmol/L (136-145) Potassium Level 4.2 mmol/L (3.5-5.1) Chloride Level 102 mmol/L (98-107) Carbon Dioxide Level 25 mmol/L (21-32) Anion Gap 8 (6-14) Blood Urea Nitrogen 21 mg/dL (8-26) Creatinine 0.9 mg/dL (0.7-1.3) Estimated GFR (Cockcroft-Gault) 85.8 BUN/Creatinine Ratio 23 (6-20) Glucose Level 170 mg/dL (70-99) Calcium Level 7.6 mg/dL (8.5-10.1) Total Bilirubin 0.6 mg/dL (0.2-1.0) Aspartate Amino Transf (AST/SGOT) 38 U/L (15-37) Alanine Aminotransferase (ALT/SGPT) 22 U/L (16-63) Alkaline Phosphatase 84 U/L (46-116) Total Protein 5.7 g/dL (6.4-8.2) Albumin 1.5 g/dL (3.4-5.0) Albumin/Globulin Ratio 0.4 (1.0-1.7) Test 04/04/20 04:15 04/04/20 08:31 04/04/20 09:38 04/04/20 15:15 White Blood Count 7.7 x10^3/uL (4.0-11.0) Red Blood Count 3.87 x10^6/uL (4.30-5.70) Hemoglobin 11.6 g/dL (13.0-17.5) Hematocrit 33.5 % (39.0-53.0) Mean Corpuscular Volume 86 fL (79-100) Mean Corpuscular Hemoglobin 30 pg (25-35) Mean Corpuscular Hemoglobin Concent 35 g/dL (31-37) Red Cell Distribution Width 14.0 % (11.5-14.5) Platelet Count 167 x10^3/uL (140-400) Neutrophils (%) (Auto) 93 % (31-73) Lymphocytes (%) (Auto) 2 % (24-48) Monocytes (%) (Auto) 5 % (0-9) Eosinophils (%) (Auto) 0 % (0-3) Basophils (%) (Auto) 0 % (0-3) Neutrophils # (Auto) 7.1 x10^3/uL (1.8-7.7) Lymphocytes # (Auto) 0.2 x10^3/uL (1.0-4.8) Monocytes # (Auto) 0.4 x10^3/uL (0.0-1.1) Eosinophils # (Auto) 0.0 x10^3/uL (0.0-0.7) Basophils # (Auto) 0.0 x10^3/uL (0.0-0.2) Sodium Level 133 mmol/L (136-145) Potassium Level 4.4 mmol/L (3.5-5.1) Chloride Level 102 mmol/L (98-107) Carbon Dioxide Level 22 mmol/L (21-32) Anion Gap 9 (6-14) Blood Urea Nitrogen 23 mg/dL (8-26) Creatinine 0.8 mg/dL (0.7-1.3) Estimated GFR (Cockcroft-Gault) 98.3 Glucose Level 138 mg/dL (70-99) Calcium Level 7.7 mg/dL (8.5-10.1) O2 Saturation 91 % (92-99) Arterial Blood pH 7.47 (7.35-7.45) Arterial Blood pCO2 at Patient Temp 32 mmHg (35-46) Arterial Blood pO2 at Patient Temp 59 mmHg (65-108) Arterial Blood HCO3 23 mmol/L (21-28) Arterial Blood Base Excess 0 mmol/L (-3-3) FiO2 90 Glucose (Fingerstick) 191 mg/dL (70-99) 243 mg/dL (70-99) Test 04/04/20 17:30 04/04/20 20:52 04/05/20 09:00 04/05/20 10:36 Glucose (Fingerstick) 237 mg/dL (70-99) 127 mg/dL (70-99) 233 mg/dL (70-99) O2 Saturation 89 % (92-99) Arterial Blood pH 7.46 (7.35-7.45) Arterial Blood pCO2 at Patient Temp 29 mmHg (35-46) Arterial Blood pO2 at Patient Temp 55 mmHg (65-108) Arterial Blood HCO3 20 mmol/L (21-28) Arterial Blood Base Excess -3 mmol/L (-3-3) FiO2 100% bipap Laboratory Tests Test 04/04/20 15:15 04/04/20 17:30 04/04/20 20:52 04/05/20 09:00 Glucose (Fingerstick) 243 mg/dL (70-99) 237 mg/dL (70-99) 127 mg/dL (70-99) O2 Saturation 89 % (92-99) Arterial Blood pH 7.46 (7.35-7.45) Arterial Blood pCO2 at Patient Temp 29 mmHg (35-46) Arterial Blood pO2 at Patient Temp 55 mmHg (65-108) Arterial Blood HCO3 20 mmol/L (21-28) Arterial Blood Base Excess -3 mmol/L (-3-3) FiO2 100% bipap Test 04/05/20 10:36 Glucose (Fingerstick) 233 mg/dL (70-99) Medications Active Scripts Medications Dose Route/Sig Max Daily Dose Days Date Category [place] 5-325 Tablet (Acetaminophen/Hydrocodone Bitart) 1 Each Tablet 1 Tab PO PRN Q6HRS PRN 12/27/18 Rx Lisinopril 10 Mg Tablet 1 Tab PO DAILY 12/27/18 Rx Bactrim Ds Tablet (Sulfamethoxazole/Trimethoprim) 1 Each Tablet 1 Tab PO BID 10 12/27/18 Rx Doxycycline Hyclate 100 Mg Capsule 1 Cap PO BID 12/22/18 Rx Diflucan (Fluconazole) 200 Mg Tablet 1 Tab PO DAILY 12/22/18 Rx Clotrimazole 15 Gm Cream..g. 1 [place] TP TID 12/22/18 Rx [place] 5-325 Tablet (Acetaminophen/Hydrocodone Bitart) 1 Each Tablet 1 Tab PO Q6HRS 12/11/18 Rx Naproxen 500 Mg Tablet 1 Tab PO BID 12/11/18 Rx Levaquin (Levofloxacin) 500 Mg Tablet 1 Tab PO DAILY 12/11/18 Rx Impression . IMPRESSION: 1. Acute hypoxic respiratory failure secondary to COVID-19 viral pneumonia. 2. Abnormal chest x-ray suggestive of viral pneumonia. 3. No significant tobacco use. Plan . RECOMMENDATIONS: Continue supplemental oxygen, currently on 100% BIPAP Follow chest x-ray and ABG Continue dexamethasone with taper for full 10-day course Continue IV Rocephin and IV doxy Continue PPN for nutritional support DVT/GI prophylaxis Family considering Hospice Patient is a DNR Discussed with RN and RT CC time 30 min , no overlap SHAKA RIOS MD Apr 05, 2020 11:19
[2020-04-05] MEDS: AMINO AC 3%/ELECTROLYTE/GLYCER 1,000 ML IV SCH (14:18)
--- NOTE | 2020-04-05 14:30 | NUR ---
Patient was examined this morning and noted to be in severe respiratory distress. Patient was on BIPAP 100% with O2 saturations from 88-90%. When patient turned to one side his O2 saturation dropped to the low 80's instantly. Patient asked to have a break from his BIPAP and I informed him that he could not because his respiratory status was too poor to be off BIPAP. Patient did not seem to understand severity of situation so I began to have a conversation with him about COVID and its affects on the lungs and the treatment for it. I explained to him that the BIPAP he was on was doing to most work it could but his respiratory distress seemed to be worsening. I explained to him that if it got much worse than we would have to intubate him. As I brought the idea of intubation up he said he did not want to be intubated. I reinforced teaching that he was a full code and that we needed to make sure his wishes were met. After another discussion about it he remained clear that he did not want to be intubated. I explained this to Dr. Santos who went and discussed code status with the patient. After conversing with the patient Dr. Santos told me that the patient also wants to look into hospice care. Patient made DNR and [facility] contacted for eval/treat. [facility] nurse came and visited with the patient to confirm patients wishes were met. Patient would like to go home and be with his friend who is also at home under quarantine. Patient told that he would likely not make it given his current respiratory status. Hospice nurse stated that the admission is complete and another nurse will be here to care for him. Patient discharged and registration notified to place new admission under [facility] care. Orders given by hospice admission nurse will be placed in the new chart.
--- NOTE | 2020-04-07 14:36 | PDOC3 ---
[facility]-Discharge Summary Date of Admission: Date of Admission: Mar 31, 2020 Date of Discharge: Date of Discharge: Apr 05, 2020 Discharge Diagnosis: Discharge Diagnosis: Acute respiratory failure with hypoxia - now worse, on BIPAP, intubation risk high for ARDS Sepsis - with increased HR and RR, pneumonia on CXR, empiric antibiotics and IVF Acute encephalopathy - metabolic w/ hypoxia, improving Pneumonia, w/ COVID positive Hyperglycemia - no prior diabetes diagnosis to patient knowledge. will f/u A1c and treat with basal bolus plus insulin regimen Hyponatremia - likely hypovolemic given poor PO intake recently BILL - likely vasomotor nephropathy from above, no prior renal disease noted HTN - previously on lisinopril, will continue and add prn hydralazine Lactic acidosis - acute Severe protein calorie malnutrition - Hospital Course: Hospital Course: 04/05/2020 No acute events overnight. Patient is currently on BiPAP 100% saturating 91%. Patient will desat when turned down to 70% while on BiPAP. Extremely short of breath and only able to speak in short sentences while BiPAP. Had long discussion with patient regarding CODE STATUS and quality of life. And end-of-life care. Patient stated that he does not want to do anything heroic and wants to be comfortable. He is tolerating the BiPAP but prefers to be off with the machine and spend more time with his family. I introduced the possible option of hospice care patient agreed that he would rather be comfortable at be with family then to be stuck in the ICU with mild to be on the BiPAP machine. Patient agreed to be DNR code and was willing to consider hospice care.> 50% time spent in patient chart, labs, and imaging review and in discussion with RN and LOC 04/04/2020 No acute events overnight. Patient T-max of 99.7. Patient is on 100% nonrebreather and 100% Vapotherm. Wore BiPAP overnight at 90%.> 50% time spent in patient chart, labs, and imaging review and in discussion with RN and SW 60 year old male with history of hypertension presented via EMS for shortness of breath. EMS reports patient was picked up at his friend's house after his friend, Brooks, called 911. Was found with O2 saturations 75% on room air. He was put on 5 L of oxygen with improvement to 85%, but continued to desaturate and was placed on facemask O2. Throughout his desaturations he was confused and agitated. With O2 saturations 85% he stood up stating he had to go home and get his money, removed his IVs as well as monitors and started walking to the hallway. He became very short of air. Nursing staff encouraged patient to go back to his room because currently he is very short of breath. He returned to his room. O2 saturations 70% on 12L NCO2, transitioned to vapotherm. He became prog ressively more alert over the next 30 minutes and was able to give more history and ask for his friend Brooks to be contacted to make tea to bring to the hospital and apologized for his behavior. He reports shortness of breath for roughly 2 days with chills and subjective fevers for 2 days. Denies any chest pain. No recent sick contacts. Loss of appetite. No N/V/D Chest radiograph with interstitial opacities bilaterally WBC 8.9, Hb 13.4, platelets 337, Na 131, K 3.8, BUN 24, Cr 1.2, Glucose 346, Ca 7.6, Lactic acid 2.4, Albumin 2.1, Troponin 0, BNP 254, INR 1.2, TSH 0.967, Procalcitonin 0.42 EKG with sinus tachycardia and leftward axis. No TWI or ST segment changes. No prior EKG available to review. Covid test was ordered. Given Decadron, Rocephin and azithromycin. Admitted to ICU for Vapotherm O2 administration. Disposition: Disposition/Orders: Other Activity: Activity: Resume previous activity Diet: Diet: NPO Medications: Home Meds Active Scripts Hydrocodone/Apap 5-325 ([place] 5-325 TABLET) 1 Each Tablet, 1 TAB PO PRN Q6HRS PRN for PAIN, #20 TAB 0 Refills Prov:RONNIE BRIONES [employer]SEMBLER [employer] 12/27/18 Lisinopril (LISINOPRIL) 10 Mg Tablet, 1 TAB PO DAILY for hypertension, #30 TAB 5 Refills Prov:RONNIE BRIONES [employer]SEM[employer] 12/27/18 Sulfamethoxazole/Trimethoprim (BACTRIM DS TABLET) 1 Each Tablet, 1 TAB PO BID for cellulitis for 10 Days, #20 TAB 0 Refills Prov:RONNIE BRIONES ASSEMBL[employer] 12/27/18 Doxycycline Hyclate (DOXYCYCLINE HYCLATE) 100 Mg Capsule, 1 CAP PO BID, #14 CAP Prov:CLAUDIO PEACE MD 12/22/18 Fluconazole (DIFLUCAN) 200 Mg Tablet, 1 TAB PO DAILY, #7 TAB Prov:CLAUDIO PEACE MD 12/22/18 Clotrimazole (CLOTRIMAZOLE) 15 Gm Cream..g., 1 [place] TP TID, #45 GM Prov:CLAUDIO PEACE MD 12/22/18 Hydrocodone/Apap 5-325 ([place] 5-325 TABLET) 1 Each Tablet, 1 TAB PO Q6HRS, #10 TAB Prov:JERARDO BELL APRN 12/11/18 Naproxen (NAPROXEN) 500 Mg Tablet, 1 TAB PO BID, #20 TAB 0 Refills Prov:JERARDO BELL APRN 12/11/18 Levofloxacin (LEVAQUIN) 500 Mg Tablet, 1 TAB PO DAILY, #10 TAB Prov:JERARDO BELL APRN 12/11/18 Scheduled Clotrimazole (Clotrimazole), 1 [place] TP TID Doxycycline Hyclate (Doxycycline Hyclate), 1 CAP PO BID Fluconazole (Diflucan), 1 TAB PO DAILY Hydrocodone/Apap 5-325 ([place] 5-325 Tablet), 1 TAB PO Q6HRS Levofloxacin (Levaquin), 1 TAB PO DAILY Lisinopril (Lisinopril), 1 TAB PO DAILY Naproxen (Naproxen), 1 TAB PO BID Sulfamethoxazole/Trimethoprim (Bactrim Ds Tablet), 1 TAB PO BID Scheduled PRN Hydrocodone/Apap 5-325 ([place] 5-325 Tablet), 1 TAB PO PRN Q6HRS PRN for PAIN Total Time: Total Time: Total time spent was 50 minutes in preparing scripts, discharge planning with SW and RN, and preparing this discharge summary. Patient seen and examined on day of discharge. Justicifation of Admission Dx: Justifications for Admission: Justification of Admission Dx: Yes (hypoxia) NADINE DANIEL MD Apr 07, 2020 14:36
== END 2020-04-05 14:27 | disposition hospice, home (50) | DRG 177 ==
LOC: ER 14:45 → 1 WEST ICU 19:13
PROVIDERS: ADMIT Internal Medicine; ATTEND Internal Medicine
PROC: 5A09357 Assistance with Respiratory Ventilation, Less than 24 Consecutive Hours, Continuous Positive Airway Pressure (ICD-10-PCS; principal; 2020-04-02)
PROC: 5A0935A Assistance with Respiratory Ventilation, Less than 24 Consecutive Hours, High Flow/Velocity Cannula (ICD-10-PCS; 2020-04-02)
PROC: 5A09357 Assistance with Respiratory Ventilation, Less than 24 Consecutive Hours, Continuous Positive Airway Pressure (ICD-10-PCS; 2020-04-03)
PROC: 5A0935A Assistance with Respiratory Ventilation, Less than 24 Consecutive Hours, High Flow/Velocity Cannula (ICD-10-PCS; 2020-04-03)
PROC: 5A09357 Assistance with Respiratory Ventilation, Less than 24 Consecutive Hours, Continuous Positive Airway Pressure (ICD-10-PCS; 2020-04-04)
DX: U07.1 COVID-19 (principal); A41.89 Other specified sepsis; E43 Unspecified severe protein-calorie malnutrition; G93.41 Metabolic encephalopathy; J12.82 Pneumonia due to coronavirus disease 2019; J80 Acute respiratory distress syndrome; N17.9 Acute kidney failure, unspecified; E87.1 Hypo-osmolality and hyponatremia; I10 Essential (primary) hypertension; Z51.5 Encounter for palliative care; Z66 Do not resuscitate; R73.9 Hyperglycemia, unspecified; Z82.49 Family history of ischemic heart disease and other diseases of the circulatory system; Z87.891 Personal history of nicotine dependence
CPT/HCPCS: 36415; 36600; 71045; 80048; 80053; 80307; 81001; 82553; 82805; 82962; 83605; 83690; 83735; 83880; 84145; 84443; 84484; 85007; 85025; 85610; 85730; 87040; 93005; 94660; 94760; 96365; 96375; J0456; J0696; J1100; J1650; J1815; J2060; J3490; J7030; J7060; U0003; 99285-25; G0378

== ENCOUNTER 2020-04-05 14:39 | Inpatient (IN) | payer OTHER ==
[2020-04-05] MEDS ORDERED: ACETAMINOPHEN 650 MG SUPP.RECT. PR PRN (15:00)
[2020-04-05] MEDS ORDERED: BISACODYL 10 MG SUPP.RECT. PR PRN (15:00)
[2020-04-05] MEDS: SCOPOLAMINE 1.5MG PATCH. TD SCH ×2 (16:22→17:00)
[2020-04-05] MEDS: MORPHINE SULFATE 30 ML IV PRN ×2 (16:23→17:53)
--- NOTE | 2020-04-05 17:25 | NUR ---
About an hour ago I went into the patients room to inform him that we could transfer him off BIPAP and put him on 2L O2 and initiate comfort measures. The patient responded with, "am I going home?" I told him that because of his condition it would not be safe to transfer him home and that he would likely not make it. He stated, "well I do not want to here." I had a difficult conversation with the patient explaining his realistic solutions. I also asked if he would like to remove the BIPAP and put oxygen on to experience what it would be like to "go home" on oxygen. Within 10-15 seconds the patient desaturated to 75% and demanded that I place the BIPAP back on. Upon further discussion it is my best understanding that the patient is wanting comfort care but only at his house. At this point that solution is not possible and I have let hospice nurse, Solange, know. AYUSH Mclean RN, is here now and they would like to start morphine at a low dose to help relax the patient and his breathing in attempt to allow him to make a decision while hes not suffering from as much air hunger as he appears to be suffering now. At this point hospice would like to have him stay on BIPAP tonight and have a conversation with him tomorrow to best establish his wishes.
[2020-04-05 19:00] VITALS: BP 141/67
[2020-04-05] MEDS ORDERED: DEXTROSE 50% 25 GM / 50ML DISP.SYRIN. IV PRN (23:00)
[2020-04-06] MEDS: MORPHINE SULFATE 30 ML IV PRN (07:29)
[2020-04-06 08:00] VITALS: BP 94/57
[2020-04-06] MEDS: INSULIN LISPRO 300 UNITS/3 ML VIAL. SQ SCH ×3 (08:00→16:45)
--- NOTE | 2020-04-06 13:06 | NUR ---
Per Solange, RN's request with [facility] pt asked how he would like to proceed with Hospice. Pt. stated he would like to remain on Hospice and attempt "the other mask" to see how he did and possibly increase the Morphine if needed. Notified Solange of pt's request.
--- NOTE | 2020-04-06 13:24 | NUR ---
At 1317 pt trialed on 100% NRB initially sating at 78%. AT 1320 pt sating 48% on 100% NRB. Pt asked if he wanted to remain on NRB, pt asking to return to bipap.
--- NOTE | 2020-04-06 13:26 | NUR ---
Pt. on biapap, sating 79%, HR 90 SR.
--- NOTE | 2020-04-06 15:41 | NUR ---
Spoke with pt about options with Hospice which are to increase Morphine for comfort care and remove bipap or keep bipap on and possibly discontinue Hospice. Pt. stated he would like to keep the bipap on. Solange RN with [facility] notified. She stated she would pass on the information and the assistant casino shift manager RN would come to see pt and address any paperwork. Dr. Santos on the unit and notified.
[2020-04-06 18:00] VITALS: BP 118/62
--- NOTE | 2020-04-06 18:03 | NUR ---
Te can filler in to assess pt. She stated they cannot continue to see pt on bipap as that is considered aggressive treatment. Pt. explained the revocation of hospice, he verbalized understanding and said "I need this mask". Dr. Hooker paged for new hospital orders.
--- NOTE | 2020-04-06 19:16 | NUR ---
Pt. to discharge as inpatient hospice and readmit as inpatient.
--- NOTE | 2020-04-07 14:40 | PDOC1 ---
History and Physical Date of Admission Date of Admission DATE: 04/07/20 TIME: 14:37 History of Present Illness History of Present Illness 60 yo M with Covid PNA who has been on BiPAP from 03/31/20 until present wants to consider comfort care. Hospice was consulted and he agreed initially, but he wanted to stay on BiPAP. Hospice was unable to provide hospice service with life prolonging treatments. Therefore, hospice was revoked. patient will continue ICU care but remain DNR/DNI. Past Medical History Cardiovascular: HTN Past Surgical History Past Surgical History: No pertinent history Family History Family History: Hypertension Social History ALCOHOL: none Drugs: None Current Medications Current Medications Current Medications Lorazepam (Ativan) 1 mg PRN Q1HR PRN PO ANXIETY / AGITATION; Start 04/05/20 at 15:00; Stop 04/05/20 at 16:19; Status DC Bisacodyl (Dulcolax Supp) 10 mg PRN DAILY PRN NC CONSTIPATION; Start 04/05/20 at 15:00; Stop 04/06/20 at 19:20; Status DC Acetaminophen (Tylenol Supp) 650 mg PRN Q4HRS PRN NC MILD PAIN / TEMP > 100.3'F; Start 04/05/20 at 15:00; Stop 04/06/20 at 19:20; Status DC Scopolamine (Transderm-Scop) 1 patch Q3DAYS TD ; Start 04/05/20 at 17:00; Stop 04/06/20 at 19:20; Status DC Morphine Sulfate 30 ml @ 0 mls/hr CONT PRN PRN IV PER PROTOCOL Last administered on 04/06/20at 07:29; Start 04/05/20 at 15:15; Stop 04/06/20 at 19:20; Status DC Lorazepam (Ativan Inj) 1 mg PRN Q1HR PRN IVP ANXIETY / AGITATION; Start 04/05/20 at 16:30; Stop 04/06/20 at 19:20; Status DC Insulin Human Lispro (HumaLOG) 0-5 UNITS TIDWMEALS SQ ; Start 04/06/20 at 08:00; Stop 04/06/20 at 19:20; Status DC Dextrose (Dextrose 50%-Water Syringe) 12.5 gm PRN Q15MIN PRN IV SEE COMMENTS; Start 04/05/20 at 23:00; Stop 04/06/20 at 19:20; Status DC Active Scripts Active [place] 5-325 Tablet (Acetaminophen/Hydrocodone Bitart) 1 Each Tablet 1 Tab PO PRN Q6HRS PRN Lisinopril 10 Mg Tablet 1 Tab PO DAILY Bactrim Ds Tablet (Sulfamethoxazole/Trimethoprim) 1 Each Tablet 1 Tab PO BID 10 Days Doxycycline Hyclate 100 Mg Capsule 1 Cap PO BID Diflucan (Fluconazole) 200 Mg Tablet 1 Tab PO DAILY Clotrimazole 15 Gm Cream..g. 1 [place] TP TID [place] 5-325 Tablet (Acetaminophen/Hydrocodone Bitart) 1 Each Tablet 1 Tab PO Q6HRS Naproxen 500 Mg Tablet 1 Tab PO BID Levaquin (Levofloxacin) 500 Mg Tablet 1 Tab PO DAILY Allergies Allergies: Coded Allergies: No Known Medication Allergies (Verified Allergy, Unknown, 04/06/20) Vitals Vitals Vital Signs Date Time Temp Pulse Resp B/P (MAP) Pulse Ox O2 Delivery O2 Flow Rate FiO2 04/06/20 20:38 84 BiPAP/CPAP 04/06/20 18:00 74 118/62 (80) 04/06/20 08:00 98.2 16 98.2 Labs Labs Laboratory Tests Test 04/05/20 22:43 04/06/20 08:16 04/06/20 12:44 04/06/20 16:35 Glucose (Fingerstick) 214 mg/dL (70-99) 185 mg/dL (70-99) 168 mg/dL (70-99) 128 mg/dL (70-99) Laboratory Tests Test 04/06/20 16:35 Glucose (Fingerstick) 128 mg/dL (70-99) VTE Prophylaxis Ordered VTE Prophylaxis Devices: Yes VTE Pharmacological Prophylaxi: Yes Assessment/Plan Assessment/Plan Continue BiPAP support for covid PNA and ICU care Pulmonology consult IV steroids PPN Lovenox for DVT prophylaxis Protonix for GI prophylaxis NADINE DANIEL MD Apr 07, 2020 14:40
== END 2020-04-06 19:19 | disposition short-term general hospital (02) | DRG 177 ==
LOC: 1 WEST ICU 14:39
PROVIDERS: ADMIT Internal Medicine; ATTEND Internal Medicine
PROC: 5A09457 Assistance with Respiratory Ventilation, 24-96 Consecutive Hours, Continuous Positive Airway Pressure (ICD-10-PCS; principal; 2020-04-05)
DX: U07.1 COVID-19 (principal); J12.82 Pneumonia due to coronavirus disease 2019; Z51.5 Encounter for palliative care; Z66 Do not resuscitate; I10 Essential (primary) hypertension; Z82.49 Family history of ischemic heart disease and other diseases of the circulatory system
CPT/HCPCS: 82962; 94660; J1815; J2270; G0378